=== PATIENT | male | born 1955 | race Caucasian/White ===

== ENCOUNTER → 2019-05-18 08:19 | Outpatient (CLI) | payer SELFPAY ==
--- NOTE | 2019-05-18 08:57 | CT_ITS ---
PROCEDURE: CT HEART W CALCIUM SCORE Patient Age:64Y CLINICAL HISTORY: screening Short of breath. Family history CVD hypertension COMPARISON: No exams were available for comparison CXR 2012 TECHNIQUE: Helical images obtained obtained through the heart with calcium scoring performed. All CT scans at the facility use one or more dose reduction, viz: automated exposure control, ma/kV adjustment per patient size (including targeted exams where dose is matched to indication, i.e. head), or iterative reconstruction technique. FINDINGS: Calcium score on this patient = 327 reflecting moderate plaque burden and high CVD risk. The total calcium score 327 with calcium scoring breakdown as follows.: Left main coronary artery 282 LAD 20 LCX 2 RCA 18 PDA 5 Only limited views of lungs adjacent to the heart. These images a show no additional findings of significant concern. There is a small 4 mm calcified granuloma RML. Upper normal borderline airway thickening centrally with minor chronic changes lung pimentel bilaterally. Aortic root normal caliber with 3.8 cm diameter ascending aorta.. IMPRESSION: Total calcium score 327, reflecting moderate plaque burden and HIGH CVD Risk. Dictated by: Fantasma Cisneros MD 05/21/2019 13:17 Electronically signed by Fantasma Cisneros MD in [place] 05/21/2019 13:17
== END ==
PROVIDERS: PCP Family Medicine; Visit Provider Internal Medicine Cardiovascular Disease
DX: Z13.6 Encounter for screening for cardiovascular disorders (principal); E78.5 Hyperlipidemia, unspecified; I10 Essential (primary) hypertension; I48.0 Paroxysmal atrial fibrillation; R06.00 Dyspnea, unspecified; R06.83 Snoring; R40.0 Somnolence; R60.9 Edema, unspecified; R94.31 Abnormal electrocardiogram [ECG] [EKG]
CPT/HCPCS: 75571

== ENCOUNTER → 2019-05-21 13:26 | Outpatient (CLI) | payer MEDICARE, SELFPAY | PROVIDERS: PCP Family Medicine; Visit Provider Internal Medicine Cardiovascular Disease | DX: E78.5 Hyperlipidemia, unspecified (principal); I10 Essential (primary) hypertension; I48.0 Paroxysmal atrial fibrillation; R06.00 Dyspnea, unspecified; R06.83 Snoring; R40.0 Somnolence; R60.9 Edema, unspecified; R94.31 Abnormal electrocardiogram [ECG] [EKG] ==

== ENCOUNTER → 2019-05-25 06:34 | Outpatient (CLI) | payer MEDICARE, SELFPAY ==
--- NOTE | 2019-05-25 06:36 | NM_ITS ---
APPROVED REPORT Exam: Nuclear Stress Test Indication: cad, hx.janett, htn, d.m., fm. hx, sob, fatigue, abn ekg Patient Location: Outpatient Stress Tech: Lily Box [place] Tech:Rose Fragoso, ARRT RT(R)(N) Ht: 5 ft 10 in Wt: 227 lbs HR: 81 bpm BP: 162/87 mmHg BSA: 2.20 m2 BMI: 32.5 History: cad, hx.janett, htn, d.m., fm. hx, sob, fatigue, abn ekg Procedure: Patient received a 0.4 mg of intravenous Lexiscan, resting heart rate 81 bpm, resting blood pressure 162/87 mmHg, with Lexiscan maximum heart rate achived was 91 bpm which is Less than 85 % of the maximum predicted heart rate and blood pressure was 171/81 mmHg. With Lexiscan, patient denied any complaint of chest pain. Electrocardiogram Resting electrocardiogram showed sinus rhythm nonspecific ST-T changes, with Lexiscan there is less than 1.[address] segment depression noted from the baseline EKG. The EKG portion of the Lexiscan Myoview is nondiagnostic. Cardiac Stress and Resting SPECT Images: Cardiac Stress and Resting SPECT images were obtained using technetium 99m Myoview 32.7 mCi stress and 10.97 mCi at rest. Gated SPECT with analysis of segmental wall motion and calculation of the ejection fraction also done. Cardiac stress and resting SPECT images show uniform myocardial activity without segmental perfusion abnormality, computer derived ejection fraction is 58% with no regional wall motion abnormality, right ventricle is normal size and contractility. Conclusion: 1. The EKG portion of the Lexiscan Myoview is nondiagnostic. 2. No scintigraphic evidence of reversible ischemia seen, computer derived ejection fraction is 58% with no regional wall motion abnormality, right ventricle is normal size and contractility. 3. Normal Lexiscan Myoview study. Electronically signed by : Ulysses Muhammad, 05/25/2019 13:39:48
--- NOTE | 2019-05-25 06:36 | CA_ITS ---
APPROVED REPORT EXAM: Comprehensive 2D, Doppler, and color-flow Echocardiogram Music Minister: Tereza Roberts CRT Ht: 5 ft 10 in Wt: 230lbs BSA: 2.21 BP: 194/86 mmHg Indications: Diabetes, Atrial Fibrillation (new onset), Atrial Flutter, Fatigue, Peripheral Edema, Hyperlipidemia, Hypertension/HDD, GERD, old UT 2D Dimensions LVOT 2.41 cm (M/F) 1.5-2.5 M-Mode Dimensions RVDd 3.31 cm (0.9-2.6) LVDd 5.45 cm (3.5-5.7) LVDs 3.94 cm (3.5-5.7) IVSd 1.73 cm (0.6-1.1) PWd 1.17 cm (0.6-1.1) EF (Teich) 53.30% FS 27.70% EDV (Teich) 144.40 mL ESV (Teich) 67.50 mL LV Diastology E/A Ratio 1.63 Mitral Valve MV A Velocity 62.00 (40-130 cm/s) Left Ventricle Left atrium is mildly enlarged, left ventricle is normal size, mild concentric left ventricular hypertrophy, visually estimated ejection fraction 55% with no regional wall motion abnormality. Diastolic parameters are inconclusive. Right Ventricle Right atrium and right ventricular normal size and contractility. Aortic Valve Aortic valve is grossly normal, there is no aortic stenosis or aortic insufficiency. Mitral Valve Mitral valve is grossly normal, there is mild mitral regurgitation. Tricuspid Valve Tricuspid valve is grossly normal, there is mild tricuspid regurgitation. Tricuspid regurgitation jet velocity is inadequate for calculation of the right ventricular systolic pressure. Pulmonic Valve Pulmonic valve is poorly visualized. Great Vessels Aortic root is normal size. Pericardium No significant pericardial effusion noted. Conclusion 1. Mildly enlarged left atrium, normal left ventricular size, mild concentric left ventricular hypertrophy, visually estimated ejection fraction 55% with no regional wall motion abnormality, diastolic parameters are inconclusive. 2. Mild mitral and tricuspid regurgitation. 3. No significant pericardial effusion noted. Electronically signed by : Ulysses Muhammad, 05/25/2019 14:46:50
--- NOTE | 2019-05-25 06:39 | CA_ITS ---
APPROVED REPORT Exam: Pharmacologic Technologist: maame marinelli, Ht: 5 ft 10 in Wt: 227 lbs BSA: 2.20 m2 HR: 81 bpm BP: 162/87 mmHg Indications: SOB, Abn. EKG Medical History Medications: Metoprolol,,,,, Losartan,,,,, INSULIN,,,,, Apixaban,,,,, Allergies: No known drug allergies Cardiac Risk Factors: HTN, Diabetes (insulin), FHX of CAD Previous Cardiac Procedures: Myocardial infarction Stress Test Details Test: LEXISCAN HR Resting HR: 79 bpm Max Heart Rate (APMHR): 154 bpm Max HR Achieved: 99 bpm Target HR (85% APMHR): 130 bpm % of APMHR: 64 Recovery HR: 87 bpm BP Resting BP: 162.0/87.0 mmHg Max BP: 171/81 mmHg Recovery BP: 162.0/76.0 mmHg ECG Resting ECG: Sinus rhythm with intermitten A-Fib Clinical Exercise duration: 04:00 min Highest Stage Achieved: Exercise capacity: 1.0 METs Stress ECG Conclusion Lexiscan portion completed. No chest pain. C/O SOB at peak infusion which resolved during recovery. Occ PAC and PVC. Less than 1.5mm ST Depression. Images to follow. Test Summary REST 01:12 . . 79 . . . . Stage 1 01:00 . . 96 . . . . Stage 2 01:00 . . 96 . 156/ 85 . . Stage 3 01:00 . . 91 . 171/ 81 . . Stage 4 01:00 . . 92 . 162/ 85 . Stop exercise at 04:00 RECOVERY 01:00 . . 89 . 162/ 76 . . RECOVERY 02:00 . . 89 . 168/ 76 . . RECOVERY 03:00 . . 82 . 165/ 79 . . RECOVERY 03:48 . . 86 . 171/ 78 . . Electronically signed by : Ulysses Muhammad, 05/25/2019 13:37:17
--- NOTE | 2019-05-25 09:07 | HMH.ITSHM ---
Current Home Medications as stated by this patient Norm Joseph or cash posting representative. [] NOVOLIN ELIQUIS METOPROLOL LOSARTAN/HC
== END ==
PROVIDERS: PCP Family Medicine; Visit Provider Internal Medicine Cardiovascular Disease
DX: E78.5 Hyperlipidemia, unspecified (principal); I10 Essential (primary) hypertension; I48.0 Paroxysmal atrial fibrillation; R06.00 Dyspnea, unspecified; R60.9 Edema, unspecified; R94.31 Abnormal electrocardiogram [ECG] [EKG]
CPT/HCPCS: 78452; 93017; 93306; A9502; J2785

== ENCOUNTER → 2019-06-04 13:38 | Outpatient (CLI) | payer MEDICARE, SELFPAY | PROVIDERS: PCP Family Medicine; Visit Provider Internal Medicine Cardiovascular Disease | DX: R06.00 Dyspnea, unspecified (principal); R06.83 Snoring; R40.0 Somnolence; R60.9 Edema, unspecified; I48.0 Paroxysmal atrial fibrillation; I10 Essential (primary) hypertension; R94.31 Abnormal electrocardiogram [ECG] [EKG]; E78.5 Hyperlipidemia, unspecified; G47.33 Obstructive sleep apnea (adult) (pediatric) | CPT/HCPCS: G0399 ==

== ENCOUNTER → 2019-08-31 09:11 | Outpatient (CLI) | payer MEDICARE, SELFPAY ==
[2019-08-31 09:41] LABS: Alanine Aminotransferase 13 U/L (12-78); Alkaline Phosphatase 47 U/L (38-126); Aspartate Amino Transferase 22 U/L (17-59); Bilirubin,Direct 0.3 mg/dl (0.0-0.4); Bilirubin,Indirect 0.7 mg/dL (0.0-0.9); Bilirubin,Unconjugated 0.7 mg/dL (0.0-1.1); Chol/HDL Ratio 2.4 (1-3.5); Cholesterol 87 mg/dl (140-200); HDL Cholesterol 37 mg/dl (40-60); Total Protein,Serum 7.1 g/dl (6.3-8.2); Triglycerides 67 mg/dl (30-150); VLDL Cholesterol 13 mg/dL (0-40)
[2019-08-31 09:53] LABS: Direct LDL Cholesterol 45.26 mg/dL (100-129)
== END ==
PROVIDERS: Visit Provider Urology
DX: E78.2 Mixed hyperlipidemia; E11.69 Type 2 diabetes mellitus with other specified complication; G47.33 Obstructive sleep apnea (adult) (pediatric); I25.10 Atherosclerotic heart disease of native coronary artery without angina pectoris; I48.0 Paroxysmal atrial fibrillation; K21.9 Gastro-esophageal reflux disease without esophagitis; R06.02 Shortness of breath; R60.9 Edema, unspecified; Z82.49 Family history of ischemic heart disease and other diseases of the circulatory system; I11.9 Hypertensive heart disease without heart failure; Z79.4 Long term (current) use of insulin
CPT/HCPCS: 36415; 80061; 80076

== ENCOUNTER 2019-10-23 08:38 | Day surgery (SDC) | payer MEDICARE, SELFPAY ==
[2019-10-23] VITALS (18 sets, daily range): BP systolic 109–184; BP diastolic 64–85; PULSE 58–76; RESP 14–18; TEMP 36.5; O2SAT 93–100; BMI 37.5
--- NOTE | 2019-10-23 | IR_ITS ---
APPROVED REPORT Patient Location: Outpatient Histologic Technician: TESS Kelly RT (R) PROCEDURES Right heart catheterization Left heart catheterization Left ventriculogram Selective coronary angiogram Drug-eluting stent deployment to the proximal LAD INDICATION Elevated calcium score on coronary CT, Coronary artery disease, Angina pectoris, Pulmonary hypertension, Biventricular congestive heart failure Informed consent was obtained prior to the procedure. COMPLICATIONS None Estimated Blood Loss: less than 10 ml TECHNIQUE One percent lidocaine was used to anesthetize the right anterior aspect of the right wrist. The right radial artery was accessed via the Seldinger technique and a 6 Iranian hydrophilic sheath was placed in the right radial artery. Following this one percent lidocaine was used to anesthetize the right anterior aspect of the right neck. The right internal jugular vein was accessed via the Seldinger technique and a 7 Iranian sheath was placed in the right internal jugular vein. Following this an arterial cocktail was administered using 5000U heparin, 2.5 mg verapamil, 1mg Lidocaine and 800mcg nitroglycerin into the right radial sheath. A trap catheter was used to perform left heart catheterization left ventriculogram and selective coronary angiography while a Upton-Etelvina catheter was used to perform right heart catheterization. Saturations were obtained in the pulmonary artery and right atrium. At the end of the diagnostic procedure therapeutic heparin was administered and a Zia catheter was used to intubate the left main artery. A BMW wire was used to traverse the stenosis in the LAD and a 3 mm x 15 mm resolute ang stent was deployed at 24 carlos reducing the stenosis. A 3.5 x 12 mm balloon was deployed on 2 occasions at 24 carlos to post dilate. An additional 4 mm x 12 mm balloon was then deployed on 2 occasions at 24 carlos to further post dilate the proximal LAD stent. At the end of the procedure the apparatus was removed the sheath was removed good hemostasis was achieved using TR banding patient was transferred to the postop holding her in stable condition ANGIOGRAPHIC RESULTS The left main artery Normal The left anterior descending artery Has a proximal 70% stenosis followed by mid vessel 20% then an additional 30% eccentric stenosis with 20 and 30% stenoses distally. The circumflex artery Is a large dominant vessel with mild 10% diffuse luminal irregularities The right coronary artery Small nondominant with mild 10% luminal irregularities The HORVATH ventriculogram reveals Normal 60% The left ventricular end-diastolic pressure 25 mmHg HEMODYNAMICS: Right atrial pressure is 15 mmHg Pulmonary arterial pressure is 40/23 mmHg Pulmonary artery occlusion pressure is 24 mmHg PA SAT: 81% RA SAT: 81% IMPRESSION Severe proximal LAD stenosis Successful stenting of the proximal LAD severe disease reduced to 0% with one drug-eluting stent Moderate pulmonary hypertension Moderately elevated pressures consistent with biventricular congestive heart failure Normal ejection fraction PLAN 1. Plavix plus aspirin plus Eliquis for 30 days then drop the aspirin and continue Plavix plus Eliquis 2. LDL less than 55 3. Cardiac rehabilitation 4. Avoidance of tobacco products 5. Diuretics in order to decrease LVEDP and treat pulmonary hypertension with biventricular heart failure Electronically signed by : Jaiden Nunez, 10/23/2019 10:54:12
[2019-10-23 09:12] LABS: Basophils # 0.1 K/mm3 (0-0.2); Eosinophils # 1.2 K/mm3 (0.0-0.4); Eosinophils % 10.7 % (0.1-12.0); Hematocrit 40.8 % (42.0-52.0); Hemoglobin 14.2 g/dL (14.1-18.0); Lymphocytes # 2.2 K/mm3 (0.7-4.5); Mean Corpuscular HGB Conc 34.8 g/dL (31.8-35.4); Mean Corpuscular Hemoglobin 32.4 pg (27.0-31.2); Mean Corpuscular Volume 93.1 fl (80-94); Mean Platelet Volume 8.3 fl (7.4-10.4); Monocytes # 0.7 K/mm3 (0.1-1.0); Monocytes % 6.3 % (1.7-9.3); Neutrophils # 6.9 K/mm3 (1.8-7.8); Neutrophils % 62.1 % (37.0-80.0); Platelet Count 219 K/mm3 (142-424); Red Blood Count 4.38 M/mm3 (4.60-6.20); Red Cell Distribution Width 14.7 % (11.5-17.5); White Blood Count 11.1 K/mm3 (4.8-10.8)
[2019-10-23 09:15] LABS: Chloride 100 mmol/L (98-107); Sodium 140 mmol/L (136-145)
[2019-10-23 09:18] LABS: Blood Urea Nitrogen 15 mg/dl (9-20); Calcium 9.3 mg/dl (8.4-10.2); Carbon Dioxide 29 mmol/L (22.0-30.0); Creatinine Clearance Estimated 122 mL/min (50-200); Estimated Glomerular Filt Rate 97 ml/min (>60); GFR (African American) 117 ML/MIN (>60); Glucose 178 mg/dl (74-100)
[2019-10-23 13:58] LABS: CATHL Arterial O2 SAT 81.6 % (90-100); CATHL Venous O2 SAT 81.8 % (75-80)
[2019-10-23 14:00] LABS: CATHL Activated Clotting Time 299 SEC (74-125)
--- NOTE | 2019-10-23 14:22 | HMH.PHACLD ---
Norm Joseph has received discharge medication counseling on the following medications: PATIENT CURRENTLY ON LOSARTAN 100 MG DAILY, ATORVASTATIN 20 MG HS, AND METOPROLOL SUCCINATE 50 MG TID. MD STARTING PLAVIX 75 MG DAILY AND ASPIRIN 81 MG DAILY. MD ALSO ADDING LASIX 40 MG DAILY AND SPIRONOLACTONE 50 MG DAILY.
== END 2019-10-23 15:00 | disposition home or self-care (01) ==
LOC: CATHLAB 08:41
PROVIDERS: PCP Family Medicine; Visit Provider Internal Medicine
DX: I25.10 Atherosclerotic heart disease of native coronary artery without angina pectoris (principal); I27.20 Pulmonary hypertension, unspecified; I48.0 Paroxysmal atrial fibrillation; R55 Syncope and collapse; E78.5 Hyperlipidemia, unspecified; I25.2 Old myocardial infarction; I11.0 Hypertensive heart disease with heart failure; I50.82 Biventricular heart failure; Z79.4 Long term (current) use of insulin; Z79.02 Long term (current) use of antithrombotics/antiplatelets; Z79.899 Other long term (current) drug therapy
CPT/HCPCS: 80048; 82810; 85025; 85347; 92928; 93460; 99152; 99153; C1725; C1760; C1769; C1876; C1894; C9600; J1644; Q9967

== ENCOUNTER → 2019-11-05 11:46 | Outpatient (CLI) | payer MEDICARE, SELFPAY ==
[2019-11-05 13:35] LABS: Anion Gap 18.5 mEq/L (5-15); Blood Urea Nitrogen 22 mg/dl (9-20); Calcium 11.1 mg/dl (8.4-10.2); Carbon Dioxide 31 mmol/L (22.0-30.0); Chloride 98 mmol/L (98-107); Estimated Glomerular Filt Rate 75 ml/min (>60); GFR (African American) 90 ML/MIN (>60); Glucose 178 mg/dl (74-100); Potassium 4.5 mmoL/L (3.5-5.1); Sodium 143 mmol/L (136-145)
[2019-11-05 13:43] LABS: NT Pro Brain Natriuretic Pep. 159 pg/mL (0-125)
== END ==
PROVIDERS: Visit Provider Internal Medicine Cardiovascular Disease
DX: R55 Syncope and collapse; R06.00 Dyspnea, unspecified; R60.9 Edema, unspecified; E78.5 Hyperlipidemia, unspecified; I25.10 Atherosclerotic heart disease of native coronary artery without angina pectoris; I48.0 Paroxysmal atrial fibrillation; I51.7 Cardiomegaly; R61 Generalized hyperhidrosis
CPT/HCPCS: 36415; 80048; 83880

== ENCOUNTER → 2019-12-07 11:52 | Outpatient (CLI) | payer MEDICARE, SELFPAY ==
[2019-12-07 15:22] LABS: Anion Gap 16.4 mEq/L (5-15); Blood Urea Nitrogen 26 mg/dl (9-20); Calcium 9.8 mg/dl (8.4-10.2); Carbon Dioxide 27 mmol/L (22.0-30.0); Chloride 101 mmol/L (98-107); Estimated Glomerular Filt Rate 67 ml/min (>60); GFR (African American) 81 ML/MIN (>60); Glucose 178 mg/dl (74-100); Potassium 4.4 mmoL/L (3.5-5.1); Sodium 140 mmol/L (136-145)
== END ==
PROVIDERS: Visit Provider Internal Medicine Cardiovascular Disease
DX: E78.5 Hyperlipidemia, unspecified (principal); I10 Essential (primary) hypertension; I25.10 Atherosclerotic heart disease of native coronary artery without angina pectoris; I48.0 Paroxysmal atrial fibrillation
CPT/HCPCS: 36415; 80048

== ENCOUNTER → 2020-01-25 09:38 | Outpatient (CLI) | payer MEDICARE, SELFPAY ==
[2020-01-25 11:37] LABS: Alanine Aminotransferase 19 U/L (12-78); Albumin Level 4.4 g/dl (3.5-5.0); Alkaline Phosphatase 54 U/L (38-126); Amylase 48 U/L (30-110); Aspartate Amino Transferase 22 U/L (17-59); Bilirubin,Direct 0.2 mg/dl (0.0-0.4); Bilirubin,Indirect 0.8 mg/dL (0.0-0.9); Bilirubin,Unconjugated 0.8 mg/dL (0.0-1.1); Lipase 37 U/L (23-300); Total Protein,Serum 7.4 g/dl (6.3-8.2)
[2020-01-25 13:14] LABS: Coronavirus 19 IgG Antibody Positive (Negative); Coronavirus 19 IgM Antibody Negative (Negative)
== END ==
PROVIDERS: Family Medicine; Visit Provider Internal Medicine Cardiovascular Disease
DX: E78.5 Hyperlipidemia, unspecified (principal); I10 Essential (primary) hypertension; I25.10 Atherosclerotic heart disease of native coronary artery without angina pectoris; I48.0 Paroxysmal atrial fibrillation; I51.7 Cardiomegaly; R06.00 Dyspnea, unspecified; R11.2 Nausea with vomiting, unspecified; R55 Syncope and collapse; R60.9 Edema, unspecified; R61 Generalized hyperhidrosis; Z03.818 Encounter for observation for suspected exposure to other biological agents ruled out
CPT/HCPCS: 36415; 80076; 82150; 83690; 86328

== ENCOUNTER → 2020-05-02 11:08 | Outpatient (CLI) | payer MEDICARE, SELFPAY ==
--- NOTE | 2020-05-02 11:30 | PC.NURSE ---
Pre and Post Spirometry completed without complication. Albuterol 0.083% given via hand held nebulizer, per written protocol, Pt tolerated tx well.
== END ==
PROVIDERS: PCP Family Medicine; Visit Provider Family Medicine
DX: R06.09 Other forms of dyspnea (principal); Z77.22 Contact with and (suspected) exposure to environmental tobacco smoke (acute) (chronic)
CPT/HCPCS: 94060

== ENCOUNTER → 2020-07-25 10:00 | Outpatient (CLI) | payer MEDICARE, SELFPAY ==
--- NOTE | 2020-07-25 10:13 | XR_ITS ---
PROCEDURE: XR CHEST 2V CLINICAL HISTORY: dyspnea COMPARISON: CR CXR CHEST(2 VIEWS-NOT PORTABLE) from 07/17/2012 FINDINGS: There is mild cardiomegaly without failure. The lungs are clear without infiltrates, suspicious nodules, or pleural effusions. Mild degenerative changes thoracic spine IMPRESSION: Cardiomegaly without failure Dictated by: Catarino Viramontes MD 07/25/2020 10:46 Catarino Viramontes MD in [place] 07/25/2020 10:46
[2020-07-25 11:33] LABS: Alanine Aminotransferase 21 U/L (12-78); Aspartate Amino Transferase 28 U/L (17-59); Bilirubin,Unconjugated 0.3 mg/dL (0.0-1.1)
[2020-07-25 11:34] LABS: Albumin Level 4.3 g/dl (3.5-5.0); Alkaline Phosphatase 61 U/L (38-126); Bilirubin,Direct 0.2 mg/dl (0.0-0.4); Bilirubin,Indirect 0.3 mg/dL (0.0-0.9); Bilirubin,Total 0.5 mg/dl (0.2-1.3); Total Protein,Serum 7.1 g/dl (6.3-8.2)
[2020-07-25 11:51] LABS: T4 (Thyroxine) 9.1 ug/dl (5.53-11.0); Triiodothryronine (T3) Uptake 33 % (23.5-40.5)
[2020-07-25 12:04] LABS: Thyroid Stimulating Hormone 1.72 uIU/mL (0.465-4.68)
== END ==
PROVIDERS: Visit Provider Internal Medicine Cardiovascular Disease
DX: E11.69 Type 2 diabetes mellitus with other specified complication (principal); E78.2 Mixed hyperlipidemia; G47.33 Obstructive sleep apnea (adult) (pediatric); I10 Essential (primary) hypertension; I25.10 Atherosclerotic heart disease of native coronary artery without angina pectoris; I48.0 Paroxysmal atrial fibrillation; K21.9 Gastro-esophageal reflux disease without esophagitis; R06.02 Shortness of breath; R60.9 Edema, unspecified; Z79.84 Long term (current) use of oral hypoglycemic drugs
CPT/HCPCS: 36415; 71046; 80076; 84436; 84443; 84479

== ENCOUNTER → 2020-07-30 14:21 | Outpatient (CLI) | payer MEDICARE, SELFPAY | PROVIDERS: PCP Family Medicine; Visit Provider Internal Medicine Cardiovascular Disease | DX: R06.02 Shortness of breath; R60.9 Edema, unspecified; Z20.822 Contact with and (suspected) exposure to COVID-19; Z01.812 Encounter for preprocedural laboratory examination; I48.0 Paroxysmal atrial fibrillation | CPT/HCPCS: U0003 ==

== ENCOUNTER 2020-07-31 10:26 | Day surgery (SDC) | payer MEDICARE, SELFPAY ==
[2020-07-31 10:39] VITALS: BMI 37.5
[2020-07-31 10:59] VITALS: BP 182/97; RESP 20; O2SAT 97
--- NOTE | 2020-07-31 11:03 | ECG_ITS ---
APPROVED REPORT Exam: Resting ECG HR:83 bpm ECG Measurements Heart Rate 83 AXES IL 162 P 48 QRSd 88 QRS 14 QT 510 T 96 QTc 599 Conclusion Sinus rhythm with frequent premature ventricular complexes in a pattern of bigeminy ST & T wave abnormality, consider lateral ischemia Prolonged QT Abnormal ECG Electronically signed by : Johann Fitzpatrick, 08/01/2020 15:02:11
--- NOTE | 2020-07-31 11:31 | SUR.PHASEII ---
cardioversion aborted per yovana dubois after reviewing patient ekg.
[2020-07-31 11:32] VITALS: BP 182/97; PULSE 79; RESP 16; O2SAT 97
== END 2020-07-31 11:37 | disposition home or self-care (01) ==
LOC: CATHLAB 10:26
PROVIDERS: PCP Family Medicine; Visit Provider Internal Medicine
DX: I48.0 Paroxysmal atrial fibrillation (principal); Z53.09 Procedure and treatment not carried out because of other contraindication
CPT/HCPCS: 93005

== ENCOUNTER → 2020-11-11 10:33 | Outpatient (CLI) | payer MEDICARE, SELFPAY ==
--- NOTE | 2020-11-11 11:01 | ECG_ITS ---
APPROVED REPORT Exam: Resting ECG HR:92 bpm ECG Measurements Heart Rate 92 AXES UT 162 P 52 QRSd 82 QRS 57 QT 362 T 120 QTc 447 Conclusion Sinus rhythm with premature atrial complexes ST elevation, consider inferior injury or acute infarct ACUTE PR Consider right ventricular involvement in acute inferior infarct Abnormal ECG Electronically signed by : Johann Fitzpatrick MD 11/12/2020 11:45:37
[2020-11-11 11:21] LABS: Basophils # 0.2 K/mm3 (0-0.2); Basophils % 1.5 % (0.1-2.0); Eosinophils # 0.6 K/mm3 (0.0-0.4); Eosinophils % 5.8 % (0.1-12.0); Hematocrit 45.7 % (42.0-52.0); Hemoglobin 15.1 g/dL (14.1-18.0); Lymphocytes # 2.2 K/mm3 (0.7-4.5); Mean Corpuscular HGB Conc 33.1 g/dL (31.8-35.4); Mean Corpuscular Hemoglobin 30.6 pg (27.0-31.2); Mean Corpuscular Volume 92.5 fl (80-94); Mean Platelet Volume 8.6 fl (7.4-10.4); Monocytes # 0.7 K/mm3 (0.1-1.0); Monocytes % 6.7 % (1.7-9.3); Neutrophils # 6.3 K/mm3 (1.8-7.8); Neutrophils % 64.1 % (37.0-80.0); Platelet Count 233 K/mm3 (142-424); Red Blood Count 4.94 M/mm3 (4.60-6.20); Red Cell Distribution Width 15.1 % (11.5-17.5); White Blood Count 9.8 K/mm3 (4.8-10.8)
[2020-11-11 11:43] LABS: Chloride 99 mmol/L (98-107)
[2020-11-11 11:44] LABS: Sodium 141 mmol/L (136-145)
[2020-11-11 11:46] LABS: Blood Urea Nitrogen 16 mg/dl (9-20); Estimated Glomerular Filt Rate 67 ml/min (>60); GFR (African American) 81 ML/MIN (>60)
[2020-11-11 11:47] LABS: Calcium 10.2 mg/dl (8.4-10.2); Carbon Dioxide 29 mmol/L (22.0-30.0); Glucose 229 mg/dl (74-100)
== END ==
PROVIDERS: Visit Provider Otolaryngology
DX: Z01.812 Encounter for preprocedural laboratory examination (principal); Z20.822 Contact with and (suspected) exposure to COVID-19; D49.2 Neoplasm of unspecified behavior of bone, soft tissue, and skin
CPT/HCPCS: 36415; 80048; 85025; 93005; U0003

== ENCOUNTER 2020-11-13 07:48 | Day surgery (SDC) | payer MEDICARE, SELFPAY ==
[2020-11-11 12:27] VITALS: BMI 38.0
[2020-11-13 08:05] VITALS: BP 178/80; PULSE 88; RESP 20; TEMP 36.1; O2SAT 98
[2020-11-13 08:19] LABS: POC Glucose,Bedside 223 (70-110)
--- NOTE | 2020-11-13 09:05 | HMH.ANESCL ---
[facility] Anesthesia Checklist - Patient Identification Patient Identification: Arm Band - Structural Data Admitted From: Home Planned Operative Procedure/s: Excision of Left Ear Lesion Consent for Planned Operative Procedure(s) Verified: Yes Verified Documents: Surgical Consent, History and Physical - NPO Status Verified Time NPO: 00:00 - Additional verifications Anesthesia Reactions: No Hx Blood Transfusions: No Blood Transfusion Reaction: No - Airway Assessment C-Spine Mobility Assessed: Yes (mp3) TMJ Mobility Assessed: Yes Dentition: Edentulous - Neurological Assessment Level of Consciousness: Awake, Alert - Anesthesia Plan Anesthesia Risk discussed: Yes Anesthesia Plan: Verified ASA Class: III Anesthesia Type: MAC [facility] History I have reviewed the patient's past medical history: Yes Medical History: Reports:: Atrial Fibrillation, Cancer (SKIN EAR AND ARM), Coronary Artery Disease, Diabetes Mellitus Type 2, Gastroesophageal Reflux Disease(GERD), Hyperlipidemia, Hypertension, Myocardial Infarction Denies:: Diabetes Mellitus Type 1, Internal Pacemaker, MRSA, Seizures *Have you ever received a pneumonia vaccine?: Yes *Have you received a flu vaccine this season?: Yes Other Medical History: Denies: Blood Transfusion Reaction Anesthesia experience/problems:: nac Other Surgeries: Yes: Cardiac Catheterization, Colonoscopy, Coronary Stent. No: Pacemaker Amputation: No Fractures: No - *Social History Last grade of school completed: High school graduate Smoking Status: Never smoker Alcohol Intake: former Alcohol Intake Frequency:: other Substance Use Type: marijuana *Occupational Status:: retired Housing: house *Travel in the last 8 weeks: None Family Hx:: Heart Attack
[2020-11-13 10:55] VITALS: BP 163/88; PULSE 87; RESP 16; TEMP 36.6; O2SAT 95
--- NOTE | 2020-11-13 10:56 | HMH.OPNOTE ---
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 The lesion was marked out and the sarah out measured 2.8 cm the sarah out was incised and the lesion was excised along the ear cartilage and removed in entirety. Blood loss was 5 cc and completely stopped with suction cautery. Medial and lateral incisions were made and the tissue rearrangement Z-plasty repair was done with interrupted 2-0 nylon sutures. Dressings were applied and the patient was sent to recovery in good general condition. Condition: stable Disposition: PACU Complications:: none
[2020-11-13 11:10] VITALS: BP 171/94; PULSE 86; RESP 16; TEMP 36.6; O2SAT 94
[2020-11-13 11:25] VITALS: BP 162/91; PULSE 88; RESP 18; TEMP 36.6; O2SAT 94
== END 2020-11-13 11:25 | disposition home or self-care (01) ==
PROVIDERS: PCP Family Medicine; Visit Provider Otolaryngology
DX: C44.219 Basal cell carcinoma of skin of left ear and external auricular canal; Z85.828 Personal history of other malignant neoplasm of skin; I48.91 Unspecified atrial fibrillation; I25.10 Atherosclerotic heart disease of native coronary artery without angina pectoris; E11.9 Type 2 diabetes mellitus without complications; K21.9 Gastro-esophageal reflux disease without esophagitis; E78.5 Hyperlipidemia, unspecified; I10 Essential (primary) hypertension; I25.2 Old myocardial infarction; F12.90 Cannabis use, unspecified, uncomplicated; Z82.3 Family history of stroke; Z88.6 Allergy status to analgesic agent
CPT/HCPCS: 14060; 82962; 88305; 96374

== ENCOUNTER 2023-01-10 17:39 | Inpatient (IN) | payer MEDICARE, SELFPAY ==
[2023-01-10 17:42] VITALS: BP 167/70; PULSE 108; RESP 16; TEMP 37.2; O2SAT 97; BMI 38.7
[2023-01-10 17:58] LABS: POC Glucose,Bedside 306 (70-110)
--- NOTE | 2023-01-10 18:26 | CT_ITS ---
PROCEDURE INFORMATION: Exam: CT Thoracic Spine With Contrast Exam date and time: 01/10/2023 7:52 PM Age: 67 years old Clinical indication: Condition or disease; Other: Abscess; Patient HX: States spot on back has been there since Tuesday; Additional info: Thoracolyumbar soft tissue abscess, R/O osteo TECHNIQUE: Imaging protocol: Computed tomography of the thoracic spine with contrast. Radiation optimization: All CT scans at this facility use at least one of these dose optimization techniques: automated exposure control; mA and/or kV adjustment per patient size (includes targeted exams where dose is matched to clinical indication); or iterative reconstruction. Contrast material: ISOVUE; Contrast volume: 75 ml; Contrast route: IV; REPORTING DATA: Count of CT and Cardiac NM exams in prior 12 months: This patient has received 0 known CTs and 0 known cardiac nuclear medicine studies in the 12 months prior to the current study. COMPARISON: CT ABDOMEN PELVIS W CON 01/10/2023 7:23 PM FINDINGS: Bones/joints: No acute fracture. Normal alignment. No significant disc bulge or herniation. No severe spinal canal stenosis. No significant neural foraminal narrowing. Soft tissues: Lower thoracic posterior subcutaneous soft tissue opacities. IMPRESSION: Lower thoracic posterior subcutaneous soft tissue opacities. No evidence of osteomyelitis.
--- NOTE | 2023-01-10 18:26 | CT_ITS ---
PROCEDURE INFORMATION: Exam: CT Abdomen And Pelvis With Contrast Exam date and time: 01/10/2023 7:23 PM Age: 67 years old Clinical indication: Condition or disease; Abscess; Abscess location: Thoracolumbar; Additional info: Thoracolumbar spine abscess, R/O osteo TECHNIQUE: Imaging protocol: Computed tomography of the abdomen and pelvis with contrast. Radiation optimization: All CT scans at this facility use at least one of these dose optimization techniques: automated exposure control; mA and/or kV adjustment per patient size (includes targeted exams where dose is matched to clinical indication); or iterative reconstruction. Contrast material: ISOVUE; Contrast volume: 75 ml; Contrast route: IV; REPORTING DATA: Count of CT and Cardiac NM exams in prior 12 months: This patient has received 0 known CTs and 0 known cardiac nuclear medicine studies in the 12 months prior to the current study. COMPARISON: CT HEART W CALCIUM SCORE 05/18/2019 9:06 AM FINDINGS: Lungs: Dependent bilateral lung base opacities favor atelectasis. Liver: Normal. No mass. Gallbladder and bile ducts: Normal. No calcified stones. No ductal dilation. Pancreas: Normal. No ductal dilation. Spleen: Normal. No splenomegaly. Adrenal glands: Normal. No mass. Kidneys and ureters: Left renal Bosniak 1 cystic lesion that is homogeneous and fluid density (-9-20 HU), no septations or calcifications, having patel smooth and thin. Measurement is 37 mm. No follow-up recommended. Stomach and bowel: Unremarkable. No obstruction. No mucosal thickening. Appendix: No evidence of appendicitis. Intraperitoneal space: Unremarkable. No free air. No significant fluid collection. Vasculature: Moderate calcific atherosclerotic disease of the abdominal aorta without aneurysmal dilatation is present. Lymph nodes: Unremarkable. No enlarged lymph nodes. Urinary bladder: Unremarkable as visualized. Reproductive: Unremarkable as visualized. Bones/joints: Unremarkable. No acute fracture. Soft tissues: Heterogeneous collection at the L3-L4 level measuring 2.9 x 3.9 x 3.9 cm with moderate surrounding inflammatory changes of the soft tissues. IMPRESSION: Heterogeneous collection at the L3-L4 level measuring 2.9 x 3.9 x 3.9 cm with moderate surrounding inflammatory changes of the soft tissues. Findings may represent phlegmonous collection versus early developing abscess without well-defined rim enhancement. No evidence of osteomyelitis. COMMENTS: Consistent with the [employer]'s Incidental Findings Committee white paper (J Am Asiya Radiol 2018): Any incidental renal lesion less than 1 cm or classified as too small to characterize, or any incidental cystic renal lesion characterized as simple-appearing, is likely benign. No follow-up imaging is recommended for these lesions per consensus recommendations based on imaging criteria.
--- NOTE | 2023-01-10 18:26 | CT_ITS ---
PROCEDURE INFORMATION: Exam: CT Lumbar Spine With Contrast Exam date and time: 01/10/2023 7:56 PM Age: 67 years old Clinical indication: Condition or disease; Other: Abscess; Additional info: Thoracolyumbar soft tissue abscess, R/O osteo TECHNIQUE: Imaging protocol: Computed tomography of the lumbar spine with contrast. Radiation optimization: All CT scans at this facility use at least one of these dose optimization techniques: automated exposure control; mA and/or kV adjustment per patient size (includes targeted exams where dose is matched to clinical indication); or iterative reconstruction. Contrast material: ISOVUE; Contrast volume: 75 ml; Contrast route: IV; REPORTING DATA: Count of CT and Cardiac NM exams in prior 12 months: This patient has received 0 known CTs and 0 known cardiac nuclear medicine studies in the 12 months prior to the current study. COMPARISON: CT THORACIC SPINE W CON 01/10/2023 7:52 PM FINDINGS: Bones/joints: No acute fracture. Normal alignment. No significant disc bulge or herniation. No severe spinal canal stenosis. No significant neural foraminal narrowing. Soft tissues: Heterogeneous collection at the L3-L4 level measuring 2.9 x 3.9 x 3.9 cm with moderate surrounding inflammatory changes of the soft tissues. Left renal Bosniak 1 cyst measures 3.4 cm in diameter. IMPRESSION: Heterogeneous collection at the L3-L4 level measuring 2.9 x 3.9 x 3.9 cm with moderate surrounding inflammatory changes of the soft tissues. Findings may represent phlegmonous collection versus early developing abscess without well-defined rim enhancement. No evidence of osteomyelitis.
--- NOTE | 2023-01-10 18:40 | HMH.EDGENADL ---
Discharge Plan Disposition Patient Disposition: Admitted Chief Complaint: Skin/Abscess/Foreign Body Prescriptions Prescriptions: No Action omeprazole 20 mg capsule,delayed release(DR/EC) 20 mg PO DAILY losartan-hydrochlorothiazide 100-25 mg tablet 1 tab PO DAILY clopidogrel 75 MG tablet 75 mg PO DAILY spironolactone 50 MG tablet 50 mg PO DAILY amiodarone 200 MG tablet 200 mg PO BID Referrals Follow up/Referrals: Juju Burrell MD [Primary Care Provider] - See instructions Clinical Impressions Clinical Impression: Cellulitis, Myositis Sepsis Qualifiers: Sepsis type: sepsis due to unspecified organism Sepsis acute organ dysfunction status: with acute organ dysfunction Severe sepsis acute organ dysfunction type: unspecified Severe sepsis shock status: without septic shock Qualified Code(s): A41.9 - Sepsis, unspecified organism; R65.20 - Severe sepsis without septic shock Instructions Patient Instructions: DI for Skin Abscess Discharge ED Provider: Stewart Chowdhury General Adult HPI General Chief complaint: Skin/Abscess/Foreign Body Stated complaint: vomiting, irritation on back with puss Time Seen by Provider: 01/10/23 17:47 Mode of Arrival: Ambulatory Source of Information: Patient Limitations: No Limitations Description of Symptoms (Recalled from ER Triage Doc. by RN): 67 yo M presents to ED with c/o vomitting, pimple on back. pt reports symptoms began 5 days ago. but pts daughter noticed the pimple on his back tuesday. pus and drainage began tuesday. 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 Patient states that he was seen by dermatology about 2 weeks prior to this visit. He had a lesion on his back, unknown what it was, sheet combining operator prescribed a cream, that he has been putting on for the past couple of weeks. On , approximately 4 days prior to arrival, he started noticing a knot on his lower back. Is gotten worse and is currently draining katelyn pus. Patient has had fevers, vomiting, but lesion is nonpainful unless applying pressure. No neurologic deficits. Related Data Home Medications Medication Instructions Recorded Confirmed omeprazole 20 mg capsule,delayed 20 mg PO DAILY Reflux/Acid reflux 10/12/19 01/10/23 release clopidogrel 75 mg tablet 75 mg PO DAILY Heart disease 10/24/19 01/10/23 spironolactone 50 mg tablet 50 mg PO DAILY Fluid 10/24/19 01/10/23 losartan 100 1 tab PO DAILY bp 07/25/20 01/10/23 mg-hydrochlorothiazide 25 mg tablet amiodarone 200 mg tablet 200 mg PO BID bp 11/13/20 01/10/23 Allergies Allergy/AdvReac Type Severity Reaction Status Date / Time codeine Allergy Unknown Agitated Verified 11/04/20 11:00 [facility] Disclaimer: The information contained in this section may have been updated after the patient was seen, as this information can be updated by other users. Medical History (Updated 01/10/23 @ 20:49 by Stewart Chowdhury MD) CAD (coronary artery disease) Family history of heart disease Social History Smoking Status: Never smoker second hand exposure: Yes alcohol intake: former substance use type: marijuana current occupational status: retired Travel in the last 8 weeks: None housing: house current occupational exposures/hazards: No caffeine: Yes ROS Obtained: Yes All systems reviewed & no additional complaints except as documented Physical Exam General General appearance: alert and in no apparent distress Head Head exam: atraumatic, normocephalic and other (Squamous cell carcinoma top of left ear) Eye Eye exam: Present normal appearance, PERRL and EOMI ENT ENT exam: Present mucous membranes moist Neck Neck exam: Present normal inspection, full ROM and trachea midline Respiratory
[2023-01-10 18:45] LABS: Basophils % 0.1 % (0.1-2.0); Eosinophils # 0.1 K/mm3 (0.0-0.4); Eosinophils % 0.9 % (0.1-12.0); Hematocrit 46.8 % (42.0-52.0); Hemoglobin 16.1 g/dL (14.1-18.0); Lymphocytes # 1.1 K/mm3 (0.7-4.5); Lymphocytes % 7.4 % (10-50); Mean Corpuscular HGB Conc 34.5 g/dL (31.8-35.4); Mean Corpuscular Hemoglobin 32.2 pg (27.0-31.2); Mean Corpuscular Volume 93.4 fl (80-94); Monocytes # 0.9 K/mm3 (0.1-1.0); Monocytes % 6.1 % (1.7-9.3); Neutrophils # 12.5 K/mm3 (1.8-7.8); Neutrophils % 85.6 % (37.0-80.0); Platelet Count 287 K/mm3 (142-424); Red Blood Count 5.01 M/mm3 (4.60-6.20); Red Cell Distribution Width 14.5 % (11.5-17.5); White Blood Count 14.6 K/mm3 (4.8-10.8)
[2023-01-10 18:46] LABS: MANUAL DIFFERENTIAL MANUAL DIFFERENTIAL (MANUAL DIFF)
[2023-01-10 18:47] LABS: Alanine Aminotransferase 36 U/L (12-78); Albumin Level 3.7 g/dl (3.5-5.0); Albumin/Globulin Ratio 0.9 (1.1-1.8); Alkaline Phosphatase 78 U/L (38-126); Anion Gap 16.5 mEq/L (5-15); Aspartate Amino Transferase 41 U/L (17-59); Blood Urea Nitrogen 17 mg/dl (9-20); Calcium 8.7 mg/dl (8.4-10.2); Carbon Dioxide 26 mmol/L (22.0-30.0); Chloride 94 mmol/L (98-107); Creatinine Clearance Estimated 121 mL/min (50-200); Estimated Glomerular Filt Rate 74 ml/min (>60); GFR (African American) 90 ML/MIN (>60); Globulin 4.1 g/dL (1.3-3.2); Glucose 259 mg/dl (74-100); Potassium 3.5 mmoL/L (3.5-5.1); Sodium 133 mmol/L (136-145); Total Protein,Serum 7.8 g/dl (6.3-8.2)
[2023-01-10 18:53] LABS: Lactic Acid 4.2 mmol/L (0.7-2.1)
[2023-01-10 18:56] LABS: Acetone, Serum (Rapid) None Detected (None Detect)
[2023-01-10 19:08] LABS: Creatine Kinase 239 U/L (55-170)
[2023-01-10 19:13] LABS: Lymphocytes % 3 % (10-50); Monocytes % 3 % (2-9); Neutrophils % 86 % (42-76); Platelet Estimate Normal; RBC Morphology Normal; Total Cells Counted 100
[2023-01-10 19:18] LABS: Erythrocyte Sedimentation Rate 38 mm/hr (0-20)
--- NOTE | 2023-01-10 20:25 | PC.NURSE ---
While attempting to confirm pt current medication, pt stopped me and prvided me with a list of all medications that he is actually currently taking. Confirmed medications for admissions and made a note.
[2023-01-10 20:30] LABS: Hemoglobin A1C 10.2 % (4.0-6.0)
[2023-01-10 21:13] VITALS: BP 159/95; PULSE 112; RESP 17; TEMP 36.5; O2SAT 97
--- NOTE | 2023-01-10 21:21 | PC.NURSE ---
Addendum entered by Lizy Red 01/10/23 22:27: Patient arrived to floor via wheelchair at 21:20. Original Note: Patient arrived to floor via wheelchair at 21:90.
[2023-01-10 21:30] VITALS: O2SAT 96
[2023-01-10 21:46] VITALS: BP 160/84; PULSE 128; RESP 18; TEMP 36.9; O2SAT 96; BMI 38.1
--- NOTE | 2023-01-10 21:54 | EXP.HP ---
History of Present Illness *Admission Date: 01/10/23 *Reason for visit:: Cellulitis *History of present illness: 67 year old male presented to the ED with c/o lower back pain and rash. PMHX of DM, HTN, HLD, and a fib. Daughter at bedside. Pt reports rash started three weeks prior. Two weeks ago he had a biopsy to his left ear for squamous cell carcinoma and was started on Triamcinolone acetonide by his vulcanizing machine operator who he see at [facility] for the rash on his lower back. He was states that last week he felt a bump in the same area and went to his PCP. He has an outpatient I and D planned for tomorrow with his PCP. HE was not started on any antibiotics prior to his ED visit today. He presents to the ED with an elevated HR and leukocystosis and a known source of infection. The ED physician started the pt on cefepime and vancomycin. Blood cultures were obtained. He also received a sepsis fluid replacement. The ED physician consulted the hospitalist team for further medical management. The pt arrives to the medical floor in no acute distress. A wound culture was obtained and the wound was outlined on his back. The wound is purulent, hard, and erythemic. His CT of his abd, lumbar, and thoracic spine reveals wound at L3-L4. Inflammation of the soft tissue with possible developing abscess vs. phelgmonous collection. No evidence of osteomyelitis. [facility] Disclaimer: The information contained in this section may have been updated after the patient was seen, as this information can be updated by other users. Medical History (Updated 01/11/23 @ 14:07 by Elsi Jeong APRN) Atrial fibrillation with RVR Biventricular congestive heart failure CAD (coronary artery disease) DM2 (diabetes mellitus, type 2) Dyspnea Family history of heart disease GERD (gastroesophageal reflux disease) HLD (hyperlipidemia) HTN (hypertension) GÓMEZ (obstructive sleep apnea) PAF (paroxysmal atrial fibrillation) Pulmonary hypertension Social History (Updated 01/10/23 @ 22:28 by Kelli Brennan RN) Smoking Status: Never smoker second hand exposure: Yes alcohol intake: former substance use type: marijuana current occupational status: retired Travel in the last 8 weeks: None housing: house current occupational exposures/hazards: No caffeine: Yes Review of Systems *Cardiovascular Cardiovascular: Reports system reviewed and no additional complaints, except as documented *Respiratory Respiratory: Reports system reviewed and no additional complaints, except as documented *Gastrointestinal Gastrointestinal: Reports nausea and Reports vomiting *Genitourinary Genitourinary: Reports system reviewed and no additional complaints, except as documented *Musculoskeletal Musculoskeletal: Reports back pain *Neurologic Neurologic: Reports system reviewed and no additional complaints, except as documented Meds Home Medications and Allergies Home Medications Medication Instructions Recorded Confirmed Type omeprazole 20 mg capsule,delayed 20 mg PO DAILY Reflux/Acid reflux 10/12/19 01/11/23 History release clopidogrel 75 mg tablet 75 mg PO DAILY Heart disease 10/24/19 01/11/23 History losartan 100 1 tab PO DAILY 07/25/20 01/11/23 History mg-hydrochlorothiazide 25 mg tablet apixaban 5 mg tablet (Eliquis) 5 mg PO BID Blood Thinner 01/11/23 01/11/23 History insulin human U-100 NPH-regulr 40 unit SQ HS DM 01/11/23 01/11/23 History 70-30 mix 100 unit/mL subcutaneous susp (Novolin 70/30 U-100 Insulin) insulin human U-100 NPH-regulr 80 unit SQ DAILY DM 01/11/23 01/11/23 History 70-30 mix 100 unit/mL subcutaneous susp (Novolin 70/30 U-100 Insulin) amiodarone 200 mg tablet 400 mg PO BID #30 tabs 01/13/23 Rx aspirin 81 mg tablet,delayed 81 mg PO DAILY #30 tabs 01/13/23 Rx release doxycycline hyclate 100 mg capsule 100 mg PO BID #20 caps 01/13/23 Rx metoprolol succinate 25 mg 12.5 mg PO DAILY #30 tabs 01/13/23 Rx tablet,extended release 24 hr s
[2023-01-10 21:56] LABS: POC Glucose,Bedside 273 (70-110)
[2023-01-10 22:33] LABS: Reflex Lactic Add Lactic Reflex
[2023-01-10 23:17] LABS: Lactic Acid Follow Up (RFLX 1) 2.5 mmol/L (0.7-2.1)
--- NOTE | 2023-01-10 23:30 | EXP.SEPSISRE ---
[facility] Tissue Perfusion Eval Sepsis Re-Evaluation Performed: Yes Date Performed: 01/10/23 Time Performed: 23:30
[2023-01-10 23:52] VITALS: BP 143/62; PULSE 108; RESP 18; TEMP 37.3; O2SAT 96
[2023-01-11] VITALS (24 sets, daily range): BP systolic 99–140; BP diastolic 51–79; PULSE 80–115; RESP 14–18; TEMP 36.4–37.1; O2SAT 93–98; BMI 38.1
[2023-01-11 00:53] LABS: Reflex Lactic (2 hrs) Add Lactic Reflex
[2023-01-11 01:19] LABS: Lactic Acid Follow up (RFLX 2) 1.9 mmol/L (0.7-2.1)
--- NOTE | 2023-01-11 04:16 | PC.NURSE ---
Pt is alert and oriented x4, Pt is currently tolerating RA. Pt came to unit with a large abscess to the lumbar portion of the back, and a small abscess behind the left ear. Photos have be noted and consent for photos have been signed. Pt has complained of moderate pain and was given tylenol which pt claimed helped him. Pt has recieved antibiotic therapy and tolerated it well. Pt denies other needs at this time.
[2023-01-11 05:30] LABS: POC Glucose,Bedside 283 (70-110)
[2023-01-11 06:12] LABS: Basophils # 0.1 K/mm3 (0-0.2); Basophils % 0.3 % (0.1-2.0); Eosinophils # 0.2 K/mm3 (0.0-0.4); Eosinophils % 1.3 % (0.1-12.0); Hematocrit 41.1 % (42.0-52.0); Lymphocytes # 1.2 K/mm3 (0.7-4.5); Lymphocytes % 6.7 % (10-50); Mean Corpuscular HGB Conc 34.5 g/dL (31.8-35.4); Mean Corpuscular Hemoglobin 32.3 pg (27.0-31.2); Mean Corpuscular Volume 93.5 fl (80-94); Mean Platelet Volume 8.7 fl (7.4-10.4); Monocytes # 1.2 K/mm3 (0.1-1.0); Monocytes % 6.6 % (1.7-9.3); Neutrophils # 14.9 K/mm3 (1.8-7.8); Neutrophils % 85.1 % (37.0-80.0); Platelet Count 259 K/mm3 (142-424); Red Blood Count 4.39 M/mm3 (4.60-6.20); Red Cell Distribution Width 14.5 % (11.5-17.5); White Blood Count 17.5 K/mm3 (4.8-10.8)
[2023-01-11 06:16] LABS: Chloride 97 mmol/L (98-107); Potassium 3.7 mmoL/L (3.5-5.1); Sodium 132 mmol/L (136-145)
[2023-01-11 06:17] LABS: Hemoglobin 14.2 g/dL (14.1-18.0); MANUAL DIFFERENTIAL MANUAL DIFFERENTIAL (MANUAL DIFF)
[2023-01-11 06:19] LABS: Anion Gap 11.7 mEq/L (5-15); Blood Urea Nitrogen 19 mg/dl (9-20); Calcium 7.9 mg/dl (8.4-10.2); Carbon Dioxide 27 mmol/L (22.0-30.0); Creatinine Clearance Estimated 119 mL/min (50-200); Estimated Glomerular Filt Rate 74 ml/min (>60); GFR (African American) 90 ML/MIN (>60); Glucose 248 mg/dl (74-100)
[2023-01-11 06:27] LABS: Lymphocytes % 5 % (10-50); Monocytes % 10 % (2-9); Neutrophils % 79 % (42-76); Platelet Estimate Normal; RBC Morphology Normal; Total Cells Counted 100
--- NOTE | 2023-01-11 08:05 | EXP.PHA.CONS ---
Pharmacy Consult Date: 01/11/23 Time: 08:07 Referring provider: DR PURCELL Reason for Consult:: VANCOMYCIN DOSING CONSULT Allergies Allergy/AdvReac Type Severity Reaction Status Date / Time codeine Allergy Unknown Agitated Verified 11/04/20 11:00 Home Medications Medication Instructions Recorded Confirmed Type omeprazole 20 mg capsule,delayed 20 mg PO DAILY Reflux/Acid reflux 10/12/19 01/10/23 History release clopidogrel 75 mg tablet 75 mg PO DAILY Heart disease 10/24/19 01/10/23 History spironolactone 50 mg tablet 50 mg PO DAILY Fluid 10/24/19 01/10/23 History losartan 100 1 tab PO DAILY bp 07/25/20 01/10/23 History mg-hydrochlorothiazide 25 mg tablet amiodarone 200 mg tablet 200 mg PO BID bp 11/13/20 01/10/23 History New Prescriptions to Start Prescriptions: Height: 1.78 m Weight: 120.797 kg Laboratory Results:: Laboratory Results - last 24 hr 01/10/23 17:51: POC Glucose 306 H* 01/10/23 18:06: WBC 14.6 H, RBC 5.01, Hgb 16.1, Hct 46.8, MCV 93.4, MCH 32.2 H, MCHC 34.5, RDW 14.5, Plt Count 287, MPV 9.0, Neut % (Auto) 85.6 H, Lymph % (Auto) 7.4 L, [place] % (Auto) 6.1, Eos % (Auto) 0.9, Baso % (Auto) 0.1, Neut # (Auto) 12.5 H, Lymph # (Auto) 1.1, [place] # (Auto) 0.9, Eos # (Auto) 0.1, Baso # (Auto) 0.0, Total Counted 100, Neutrophils % (Manual) 86 H, Band Neutrophils % 8.0, Lymphocytes % (Manual) 3 L, Monocytes % (Manual) 3, Platelet Estimate Normal, RBC Morphology Normal, ESR 38 H, Sodium 133 L, Potassium 3.5, Chloride 94 L, Carbon Dioxide 26, Anion Gap 16.5 H, BUN 17, Creatinine 1.00, Estimated Creat Clear 121, Estimated GFR 74, Est GFR ( Amer) 90, Glucose 259 H, Hemoglobin A1c 10.2 H, Lactate 4.2 H, Calcium 8.7, Total Bilirubin 1.0, AST 41, ALT 36, Alkaline Phosphatase 78, Total Creatine Kinase 239 H, C-Reactive Protein 173.0 H, Total Protein 7.8, Albumin 3.7, Globulin 4.1 H, Albumin/Globulin Ratio 0.9 L, Acetone Level None detected 01/10/23 21:47: POC Glucose 273 H 01/10/23 22:30: Lactate 2.5 H 01/11/23 01:00: Lactate 1.9 01/11/23 05:18: POC Glucose 283 H 01/11/23 05:51: WBC 17.5 H, RBC 4.39 L, Hgb 14.2 D, Hct 41.1 L, MCV 93.5, MCH 32.3 H, MCHC 34.5, RDW 14.5, Plt Count 259, MPV 8.7, Neut % (Auto) 85.1 H, Lymph % (Auto) 6.7 L, [place] % (Auto) 6.6, Eos % (Auto) 1.3, Baso % (Auto) 0.3, Neut # (Auto) 14.9 H, Lymph # (Auto) 1.2, [place] # (Auto) 1.2 H, Eos # (Auto) 0.2, Baso # (Auto) 0.1, Total Counted 100, Neutrophils % (Manual) 79 H, Band Neutrophils % 6.0, Lymphocytes % (Manual) 5 L, Monocytes % (Manual) 10 H, Platelet Estimate Normal, RBC Morphology Normal, Sodium 132 L, Potassium 3.7, Chloride 97 L, Carbon Dioxide 27, Anion Gap 11.7, BUN 19, Creatinine 1.00, Estimated Creat Clear 119, Estimated GFR 74, Est GFR ( Amer) 90, Glucose 248 H, Calcium 7.9 L Medical History: Medical History (Updated 01/10/23 @ 20:49 by Stewart Chowdhury MD) CAD (coronary artery disease) Family history of heart disease Assessment and Plan Assessment and plan all Dx Assessment and Plan for all problems:: Pharmacokinetic dosing service Objective: Age: 67 yo Serum creatinine: 1 mg/dL Height: 70.1 Inches Weight (kg): 120.797 Diagnosis: CELLULITIS Assessment: IBW (kg): 73.23 Dosing wt(kg): 120.797 Estimated Creatinine clearance (ml/min): 72.2 CRCL method: Cockcroft and Gault using ibw(default). Drug selected: Vancomycin Loading dose (mg): Vd (liters): 84.6 (factor used: 0.7 L/kg) Hi (hr-1): 0.064 Half life (hrs): 10.83 CLvanco=?? 5.414 L/hr Recommended dose: 2000 mg Interval: 18 hrs Infusion time (hrs): 2.0 Predicted peak (mcg/mL): 32.4 Predicted trough (mcg/mL): 11.64 Total body weight is being used for vancomycin dosing. Recommendations: Give Vancomycin 2000 mg q 18 hrs with an expected Cpeak of 32.4 mcg/ml and an expected Ctrough of 1
--- NOTE | 2023-01-11 08:05 | EXP.SURG.CON ---
History of Present Illness *Admission Date: 01/10/23 *Reason for visit:: Lower back abscess; left scalp abscess *History of present illness: This is a 67-year-old gentleman seen in consultation from the hospitalist service for evaluation regarding an abscess along the mid lower back and posterior to the left ear. Please see HPI forwarded from admission H&P below. Forwarded from admission H&P: 67 year old male presented to the ED with c/o lower back pain and rash. PMHX of DM, HTN, HLD, and a fib. Daughter at bedside. Pt reports rash started three weeks prior. Two weeks ago he had a biopsy to his left ear for squamous cell carcinoma and was started on Triamcinolone acetonide by his mushroom grower who he see at [facility] for the rash on his lower back. He was states that last week he felt a bump in the same area and went to his PCP. He has an outpatient I and D planned for tomorrow with his PCP. HE was not started on any antibiotics prior to his ED visit today. He presents to the ED with an elevated HR and leukocystosis and a known source of infection. The ED physician started the pt on cefepime and vancomycin. Blood cultures were obtained. He also received a sepsis fluid replacement. The ED physician consulted the hospitalist team for further medical management. The pt arrives to the medical floor in no acute distress. A wound culture was obtained and the wound was outlined on his back. The wound is purulent, hard, and erythemic. His CT of his abd, lumbar, and thoracic spine reveals wound at L3-L4. Inflammation of the soft tissue with possible developing abscess vs. phelgmonous collection. No evidence of osteomyelitis. [facility] Disclaimer: The information contained in this section may have been updated after the patient was seen, as this information can be updated by other users. Medical History (Updated 01/11/23 @ 08:08 by Kana Ambriz MD) CAD (coronary artery disease) Family history of heart disease Social History (Updated 01/10/23 @ 22:28 by Kelli Brennan RN) Smoking Status: Never smoker second hand exposure: Yes alcohol intake: former substance use type: marijuana current occupational status: retired Travel in the last 8 weeks: None housing: house current occupational exposures/hazards: No caffeine: Yes Review of Systems *Neurologic Neurologic: Reports system reviewed and no additional complaints, except as documented Meds Home Medications and Allergies Home Medications Medication Instructions Recorded Confirmed Type omeprazole 20 mg capsule,delayed 20 mg PO DAILY Reflux/Acid reflux 10/12/19 01/10/23 History release clopidogrel 75 mg tablet 75 mg PO DAILY Heart disease 10/24/19 01/10/23 History spironolactone 50 mg tablet 50 mg PO DAILY Fluid 10/24/19 01/10/23 History losartan 100 1 tab PO DAILY bp 07/25/20 01/10/23 History mg-hydrochlorothiazide 25 mg tablet amiodarone 200 mg tablet 200 mg PO BID bp 11/13/20 01/10/23 History New Prescriptions to Start Prescriptions: Allergies Allergy/AdvReac Type Severity Reaction Status Date / Time codeine Allergy Unknown Agitated Verified 11/04/20 11:00 Exam (Inpt) Vital signs and Labs for Last 24 Hours: Temp Pulse Resp BP Pulse Ox O2 Del Method 98.2 F 105 H 17 122/72 97 Room Air 01/11/23 07:45 01/11/23 07:45 01/11/23 07:45 01/11/23 07:45 01/11/23 07:45 01/11/23 07:45 Laboratory Results - last 24 hr 01/10/23 17:51: POC Glucose 306 H* 01/10/23 18:06: WBC 14.6 H, RBC 5.01, Hgb 16.1, Hct 46.8, MCV 93.4, MCH 32.2 H, MCHC 34.5, RDW 14.5, Plt Count 287, MPV 9.0, Neut % (Auto) 85.6 H, Lymph % (Auto) 7.4 L, [place] % (Auto) 6.1, Eos % (Auto) 0.9, Baso % (Auto) 0.1, Neut # (Auto) 12.5 H, Lymph # (Auto) 1.1, [place] # (Auto) 0.9, Eos # (Auto) 0.1, Baso # (Auto) 0.0, Total Counted 100, Neutrophils % (Manual) 86 H, Band Neutrophils % 8.0, Lymphocytes % (Manual) 3 L, Monocytes % (Manual) 3, Platelet Estimate Normal, RBC Morphology Normal,
--- NOTE | 2023-01-11 09:29 | PC.NURSE ---
Pt. refused all home medication ordered this morning due to not being covered by Medicare during Observation status. Pt. will have family bring in medications later today. Pt. states he has not had any home medications since January 05 due to being sick.
--- NOTE | 2023-01-11 09:31 | PC.NURSE ---
Pt. off floor for surgery.
--- NOTE | 2023-01-11 09:51 | EXP.ANES.CKL ---
[facility] Disclaimer: The information contained in this section may have been updated after the patient was seen, as this information can be updated by other users. Medical History (Updated 01/11/23 @ 08:08 by Kana Ambriz MD) CAD (coronary artery disease) Family history of heart disease Social History (Updated 01/10/23 @ 22:28 by Kelli Brennan RN) Smoking Status: Never smoker second hand exposure: Yes alcohol intake: former substance use type: marijuana current occupational status: retired Travel in the last 8 weeks: None housing: house current occupational exposures/hazards: No caffeine: Yes [facility] Anesthesia Checklist Patient Identification Patient Identification: Arm Band, Family and Verbal (Name & ) Structural Data Admitted From: Inpatient Planned Operative Procedure/s: I/D Lower back abscess and LEFT scalp abscess Consent for Planned Operative Procedure(s) Verified: Yes Verified Documents: Surgical Consent and History and Physical Chart Verification Results Verified: CBC, BMP and Chest Xray Additional verifications Fingerstick Blood Glucose: 283 Patient : No Anesthesia Reactions: No Hx Blood Transfusions: No Blood Transfusion Reaction: No Cephalosporin Allergy: No Previous Colonoscopy: No Cardiovascular Assessment Pulse Rhythm: Irregular Peripheral Edema: Yes Airway Assessment Mallampati Score:: Class II C-Spine Mobility Assessed: Yes TMJ Mobility Assessed: Yes Dentition: Edentulous (Metal posts on bottom) Neurological Assessment Level of Consciousness: Awake, Alert and Appropriate Hx Seizures: No Numbness or tingling in extremities: No Anesthesia Plan Anesthesia Risk discussed: Yes Anesthesia Plan: Verified ASA Class: III Anesthesia Type: General
--- NOTE | 2023-01-11 10:04 | ECG_ITS ---
APPROVED REPORT Exam: Resting ECG HR:113 bpm ECG Measurements Heart Rate 113 AXES QRSd 98 QRS 38 QT 320 T 267 QTc 387 Conclusion ATRIAL FIBRILLATION WITH RAPID VENTRICULAR RESPONSE NONSPECIFIC ST & T-WAVE ABNORMALITY ABNORMAL ECG UNCONFIRMED REPORT Electronically signed by : Johann Fitzpatrick MD 01/11/2023 19:22:44
[2023-01-11 10:05] LABS: POC Glucose,Bedside 237 (70-110)
--- NOTE | 2023-01-11 11:04 | EXP.OP.NOTE ---
Date of procedure: 01/11/23 Pre-op Diagnosis:: Complex mid lower back abscess Left lateral scalp abscess Post-op Diagnosis:: Same Procedure performed:: Incision and drainage/debridement of left lateral scalp abscess and large mid lower back abscess Surgeon:: Kana Ambriz MD Anesthesia: GETA Estimated blood loss (mL): 50 Operative findings:: Multiple micro cluster abscesses at both sites Abscess/necrotic tissue debrided Operative note:: After informed consent was obtained the patient was taken to the operating room and placed in the supine position. General anesthesia was induced and he was then transferred to the right lateral decubitus position. The abscess tissue along the left lateral scalp was debrided with electrocautery. Fluid was obtained for Gram stain/culture. Multiple microabscesses/cluster noted. The area was infiltrated with 1% lidocaine and dressings were applied. Attention was then turned to the mid lower back. A very large area of necrotic/abscessed tissue was noted. Electrocautery was utilized to debride this tissue and it was then passed off for pathologic evaluation. Fluid was obtained for Gram stain/culture. A very complex deep abscess that approached the fascial margin was noted. As stated above, a cluster of microabscesses throughout the region were noted. As much purulent fluid as possible was expressed from the microabscesses. The area was infiltrated with 1% lidocaine. The wound was then packed open after electrocautery was utilized to achieve hemostasis. Dressings were applied and patient was transferred to recovery. Condition: stable Disposition: PACU Specimens:: Fluid for Gram stain/culture -left lateral scalp Fluid for Gram stain/culture -mid lower back Mid lower back necrotic/abscess tissue Complications:: No immediate
--- NOTE | 2023-01-11 11:40 | P.PNANES_ITS ---
[facility] Anesthesia Record Part I Anesthesia Record I Intake, IV Amount: 600 Hydration: Adequate Estimated blood loss (mL): 50 Urine output (mL): 0 Blood Products used (#): none Blood Pressure: 140/53 SaO2: 95 Pulse Rate: 115 Airway Patency: Patent Respiratory Rate: 18 (Coughing) Temperature: 97.6 F Patient is:: Awake (Talking) and Stable Stable to PACU at:: 11:25
--- NOTE | 2023-01-11 12:17 | CA_ITS ---
APPROVED REPORT EXAM: Comprehensive 2D, Doppler, and color-flow Echocardiogram [place]: Libby Villa RVT Ht: 5 ft 10 in Wt: 266lbs BSA: 2.36 BP: 160/84 mmHg Indications: SOA,A-FIB,CHF,CAD,DM,HTN,HLD,CELLULITIS 2D Dimensions LVOT 2.18 cm (M/F) 1.5-2.5 LA Volume 77.70 mL LA Volume Index 32.92 mL/m2 (M/F) 16-34 M-Mode Dimensions RVDd 2.72 cm (0.9-2.6) LA Diam 4.82 cm (1.9-4.0) LVDd 4.65 cm (3.5-5.7) Ao Diam 3.19 cm (2.0-3.7) LVDs 2.86 cm (3.5-5.7) IVSd 1.93 cm (0.6-1.1) PWd 0.66 cm (0.6-1.1) EF (Teich) 68.80% FS 38.50% EDV (Teich) 99.80 mL TAPSE 2.01 (<1.7) ESV (Teich) 31.10 mL LV Diastology MED E' 3.90 (< 7 cm/sec) LAT E' 14.60 (<10 cm/sec) Aortic Valve AO Peak GR. 6.20 mmHg Pulmonary Valve PV Peak Velocity 91.00 (50-150 cm/s) Tricuspid Valve TR P. Velocity 133.00 cm/s RAP Estimate 10.00 mmHg RVSP 17.10 mmHg Left Ventricle The left ventricle is normal size. The left ventricular systolic function is normal. The left ventricular ejection fraction is within the normal range. There is increased LV wall thickness. There is normal LV segmental wall motion. Diastolic function is indeterminate due to atrial fibrillation. LVEF is 55%. Right Ventricle The right ventricle is normal size. The right ventricular systolic function is normal. Atria The left atrium is mildly dilated. The right atrium size is mildly dilated. The interatrial septum is not well visualized. Aortic Valve THe aortic valve is mildly thickened. There is no aortic valvular stenosis. Trace aortic regurgitation. Mitral Valve The mitral valve is normal in structure. Mild mitral regurgitation. Tricuspid Valve The tricuspid valve leaflets are thin and pliable. Trace tricuspid regurgitation. There is insufficient TR jet to estimate RVSP. Pulmonic Valve The pulmonary valve is normal in structure. Mild pulmonic regurgitation. Great Vessels The aortic root is normal in size. The ascending aorta is normal in size. IVC is normal in size and collapses >50% with inspiration. Pericardium There is no pericardial effusion. Other Information Study Quality: Technically Difficult Conclusion Technically difficult study due to patient positioning. Normal biventricular systolic function. Mild MR, mild PI. The patient is noted to be in atrial fibrillation during the acquisition of the study images. Electronically signed by : Siobhan Patino MD 01/11/2023 18:11:19
--- NOTE | 2023-01-11 12:23 | EXP.ANES.I ---
[facility] Anesthesia Record Part I Anesthesia Record I Intake, IV Amount: 600 Hydration: Adequate Estimated blood loss (mL): 50 Urine output (mL): 0 Blood Products used (#): none Blood Pressure: 140/53 SaO2: 95 Pulse Rate: 115 Airway Patency: Patent Respiratory Rate: 18 Temperature: 97.6 F Patient is:: Awake (Talking.) and Stable Stable to PACU at:: 11:25 Comments:: Pt. remains in Uncontrolled AFib w/RVR at 115. B/P stable. No ST changes. Spoke with Hospitalist, Dr. Colin, and requested management and Cardiac Consult. Will continue to follow as needed.
[2023-01-11 12:31] LABS: POC Glucose,Bedside 254 (70-110)
--- NOTE | 2023-01-11 12:35 | EXP.ANES.II ---
[facility] Anesthesia Record Part II Anesthesia Record Part II Discharge Time: 11:47 Destination: Surgical Day Care (OP Surgery) PACU nurse assessment reviewed?: Yes Patient Condition:: Good Anesthesia Complications:: None Swallowing reflex intact?: Yes Airway Patency: Patent Cyanosis?: No Blood Pressure: 125/75 SaO2: 94 Respiratory Rate: 17 Pulse Rate: 101 Temperature: 97.6 F Mental Status: Alert & Oriented Pain level:: 0 Nausea and/or vomitting:: None Intake, IV Amount: 600 Hydration: Adequate
--- NOTE | 2023-01-11 13:59 | EXP.CARD.CON ---
History of Present Illness History of Present Illness Consult date: 01/11/23 Requesting physician: Claudio Colin Consult reason: atrial fibrillation Chief complaint: cellulitis, afib History of present illness: This is a 67-year-old white gentleman who presented to the emergency department complaints of lower back pain and a rash. The patient has a past medical history of coronary artery disease status post stenting in 2019, hypertension, hyperlipidemia, diabetes and paroxysmal atrial fibrillation. The patient's daughter and ex- are at the bedside during the assessment of the patient. His family reports that he had a rash that started about 3 weeks ago on his lower back. 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 He states that last week he felt a bump and the rash to his back worsened. He went to see his primary care provider for this and was scheduled to have what sounds like an outpatient I&D. The patient presented to the emergency department for worsening of the rash and cellulitis to his lower back and the lateral left scalp. Surgery has been consulted and the patient did undergo I&D of the left lateral scalp abscess and the large mid lower back abscess today. During the patient's preop evaluation an EKG was obtained that showed atrial fibrillation with RVR, heart rate was around 113. The patient has been in atrial fibrillation with RVR since that time. He does have a history of known paroxysmal atrial fibrillation and was on amiodarone for suppression of his atrial fibrillation. However, the patient has not been evaluated in cardiology clinic since 2000. He does not have a bottle of his amiodarone currently and he and his family are unsure of how long he has been off of the amiodarone or even how long he has been in atrial fibrillation. He does take his Eliquis and Plavix regularly but for the last week he has not taken any of his medications because he has been too nauseated and sick to swallow his medications. He denies any chest pain. He does have shortness of breath which is worse with exertion. It does improve with rest. His daughter reports that for the last 6 months he has had progressively worsening shortness of breath. He denies any lower extremity edema. He denies any fever, chills, vomiting, diarrhea. He does have some orthopnea at times with his shortness of breath. He has been very nauseated and just has not felt well over the last week. He states he has been extremely fatigued and very dizzy and lightheaded. [facility] Disclaimer: The information contained in this section may have been updated after the patient was seen, as this information can be updated by other users. Medical History (Updated 01/11/23 @ 14:07 by Elsi Jeong APRN) Atrial fibrillation with RVR Biventricular congestive heart failure CAD (coronary artery disease) DM2 (diabetes mellitus, type 2) Dyspnea Family history of heart disease GERD (gastroesophageal reflux disease) HLD (hyperlipidemia) HTN (hypertension) GÓMEZ (obstructive sleep apnea) PAF (paroxysmal atrial fibrillation) Pulmonary hypertension Social History (Updated 01/10/23 @ 22:28 by Kelli Brennan RN) Smoking Status: Never smoker second hand exposure: Yes alcohol intake: former substance use type: marijuana current occupational status: retired Travel in the last 8 weeks: None housing: house current occupational exposures/hazards: No caffeine: Yes Review of Systems Review of Systems Review of systems:: pertinent systems reviewed and negative unless documented below Constitutional Constitutional: Reports system reviewed and no additional complaints, except as documented, Denies chills, Reports fatigue, Denies fever(s), Reports poor appetite, Reports lethargy and Reports weakness Eyes Eyes: Reports system reviewed and no additional complaints, except as doc
--- NOTE | 2023-01-11 14:15 | XR_ITS ---
FINAL REPORT CLINICAL HISTORY: sob COMPARISON: 07/25/2020 FINDINGS: SINGLE-VIEW CHEST There is cardiomegaly. The mediastinum is normal. There are left lung opacities which may represent atelectasis or pneumonia. There is no pneumothorax. IMPRESSION: Left lung base atelectasis versus pneumonia. Reviewed, Interpreted and Dictated by Ej Baum III, MD Transcribed by Whitney Kahn Authenticated and [facility]
[2023-01-11 14:49] LABS: Troponin I < 0.01 ng/ml (0.00-0.034)
--- NOTE | 2023-01-11 16:02 | EXP.PN ---
Subjective *Date: 01/11/23 *Time: 16:02 Interval history: Patient is a 67-year-old male who presented with lower back and rash. He has past medical history of diabetes mellitus atrial fibrillation. Patient denies abdominal pain, chest pain, shortness of breath Exam Data for Last 24 hours Vital signs and Labs for Last 24 Hours: Temp Pulse Resp BP Pulse Ox O2 Del Method 97.6 F 103 H 16 129/79 96 Room Air 01/11/23 12:24 01/11/23 15:00 01/11/23 15:00 01/11/23 15:00 01/11/23 15:00 01/11/23 15:00 Laboratory Results - last 24 hr 01/10/23 17:51: POC Glucose 306 H* 01/10/23 18:06: WBC 14.6 H, RBC 5.01, Hgb 16.1, Hct 46.8, MCV 93.4, MCH 32.2 H, MCHC 34.5, RDW 14.5, Plt Count 287, MPV 9.0, Neut % (Auto) 85.6 H, Lymph % (Auto) 7.4 L, [place] % (Auto) 6.1, Eos % (Auto) 0.9, Baso % (Auto) 0.1, Neut # (Auto) 12.5 H, Lymph # (Auto) 1.1, [place] # (Auto) 0.9, Eos # (Auto) 0.1, Baso # (Auto) 0.0, Total Counted 100, Neutrophils % (Manual) 86 H, Band Neutrophils % 8.0, Lymphocytes % (Manual) 3 L, Monocytes % (Manual) 3, Platelet Estimate Normal, RBC Morphology Normal, ESR 38 H, Sodium 133 L, Potassium 3.5, Chloride 94 L, Carbon Dioxide 26, Anion Gap 16.5 H, BUN 17, Creatinine 1.00, Estimated Creat Clear 121, Estimated GFR 74, Est GFR ( Amer) 90, Glucose 259 H, Hemoglobin A1c 10.2 H, Lactate 4.2 H, Calcium 8.7, Total Bilirubin 1.0, AST 41, ALT 36, Alkaline Phosphatase 78, Total Creatine Kinase 239 H, C-Reactive Protein 173.0 H, Total Protein 7.8, Albumin 3.7, Globulin 4.1 H, Albumin/Globulin Ratio 0.9 L, Acetone Level None detected 10/16/23 21:47: POC Glucose 273 H 01/10/23 22:30: Lactate 2.5 H 01/11/23 01:00: Lactate 1.9 01/11/23 05:18: POC Glucose 283 H 01/11/23 05:51: WBC 17.5 H, RBC 4.39 L, Hgb 14.2 D, Hct 41.1 L, MCV 93.5, MCH 32.3 H, MCHC 34.5, RDW 14.5, Plt Count 259, MPV 8.7, Neut % (Auto) 85.1 H, Lymph % (Auto) 6.7 L, [place] % (Auto) 6.6, Eos % (Auto) 1.3, Baso % (Auto) 0.3, Neut # (Auto) 14.9 H, Lymph # (Auto) 1.2, [place] # (Auto) 1.2 H, Eos # (Auto) 0.2, Baso # (Auto) 0.1, Total Counted 100, Neutrophils % (Manual) 79 H, Band Neutrophils % 6.0, Lymphocytes % (Manual) 5 L, Monocytes % (Manual) 10 H, Platelet Estimate Normal, RBC Morphology Normal, Sodium 132 L, Potassium 3.7, Chloride 97 L, Carbon Dioxide 27, Anion Gap 11.7, BUN 19, Creatinine 1.00, Estimated Creat Clear 119, Estimated GFR 74, Est GFR ( Amer) 90, Glucose 248 H, Calcium 7.9 L 01/11/23 09:57: POC Glucose 237 H 01/11/23 12:21: POC Glucose 254 H 01/11/23 14:08: Troponin I < 0.01 I & O for Last 24 hours: Intake & Output 01/08/23 01/09/23 01/10/23 01/11/23 23:59 23:59 23:59 23:59 Intake Total 1999 1800 / 1800 Output Total 300 / 300 Balance 1999 1500 / 1500 Weight 120.797 kg 120.797 kg Constitutional Constitutional: no acute distress *Routine HEENT Exam Head: Present normocephalic Eye: Present EOMI and PERRL ENT: Present mucous membranes moist *Routine Neck Exam Neck: Present supple; Absent lymphadenopathy *Routine Respiratory Exam Respiratory: Present CTA bilaterally *Routine Cardiovascular Exam Cardiovascular: Present RRR *Routine Abdominal Exam Abdominal: Present soft and normoactive bowel sounds; Absent tenderness *Routine Extremities Exam Extremities: Absent cyanosis, clubbing or edema *Routine Skin Exam Skin: Present erythema and warm; Absent rash *Routine Neurological Exam Neurological: Present alert and oriented X3 Assessment and Plan *Assessment and plan (1) Cellulitis: Status: Acute Category: Medical Code(s): L03.90 - Cellulitis, unspecified (2) Sepsis: Status: Acute Qualifiers: Sepsis acute organ dysfunction status: with acute organ dysfunction Sepsis type: sepsis due to unspecified organism Severe sepsis acute organ dysfunction type: unspecified Severe sepsis shock status: without septic shock Qualified Code(s): A41.9 - Sepsis, unspecified organism; R65.20 - Severe sepsis
[2023-01-11 17:08] LABS: POC Glucose,Bedside 239 (70-110)
[2023-01-11 20:12] LABS: POC Glucose,Bedside 198 (70-110)
[2023-01-12] VITALS (23 sets, daily range): BP systolic 96–146; BP diastolic 66–97; PULSE 58–110; RESP 18–24; TEMP 36.4–36.8; O2SAT 92–99; BMI 37.7
--- NOTE | 2023-01-12 | CA_ITS ---
APPROVED REPORT EXAM: Comprehensive 2D, Doppler, and color-flow Echocardiogram Chiropractic Practice Manager: Tereza Roberts CRT Ht: 5 ft 10 in Wt: 266lbs BSA: 2.36 BP: 160/84 mmHg Indications: A-fibm CAD, CHF, Cellulitis, GERD Procedure After obtaining informed consent, patient underwent transesophageal echo in the OP Surgery Suite. Type of Sedation : MAC Sedation was administered by Delfina KurtzNDennis Sedation start time: 12:10 Case end Time: 12:30 Sedation was achieved intravenously with: Transesophageal probe was inserted and advanced into esophagus without difficulty by Dr. Aime Patino. The BRIGID was performed without complications. Synchronized Cardioversion acheived with 200 Joules after 2 attempt(s). Rhythm following Synchronized Cardioversion: Normal Sinus Rhythm Throughout the procedure, the blood pressure, pulse oximetry, cardiac rhythm, and rate were monitored. The patient tolerated the procedure without adverse effects. Recovery from conscious sedation was uneventful and vital signs were stable. Left Ventricle The left ventricle is normal size. The left ventricular systolic function is normal. The left ventricular ejection fraction is within the normal range. There is increased LV wall thickness. There is normal LV segmental wall motion. LVEF is 55%. Right Ventricle The right ventricle is normal size. The right ventricular systolic function is normal. Atria The left atrium is mildly dilated. No thrombus is visualized in the left atrium or appendage. The right atrium size is mildly dilated. Interatrial septum is intact without evidence of ASD or PFO. Aortic Valve The aortic valve is normal in structure. The aortic valve is trileaflet. There is no aortic valvular stenosis. No aortic regurgitation is present. Mitral Valve The mitral valve is normal in structure. No evidence of mitral valve stenosis. Mild to moderate mitral regurgitation. The pulmonary vein systolic flow is blunted, but not reversed. Tricuspid Valve The tricuspid valve leaflets are thin and pliable. Trace tricuspid regurgitation. There is insufficient TR jet to estimate RVSP. Pulmonic Valve The pulmonary valve is normal in structure. Trace pulmonic regurgitation. Great Vessels The aortic root is normal in size. The ascending aorta is normal in size. Pericardium There is no pericardial effusion. Other Information Study Quality: Adequate Conclusion Normal biventricular systolic function. Mild to moderate MR. No evidence of LA or TIO thrombus. The patient initially underwent attempted cardioversion with 150 J. However, his rhythm did not convert and remained in atrial fibrillation. Subsequently, he underwent a second cardioversion with 200 J, which successfully converted his rhythm from atrial fibrillation to normal sinus rhythm. Electronically signed by : Siobhan Patino MD 01/14/2023 00:32:53
--- NOTE | 2023-01-12 05:40 | PC.NURSE ---
npo after mn for pamella with cardioversion. remains in atrial fib rate controlled
[2023-01-12 06:13] LABS: POC Glucose,Bedside 230 (70-110)
[2023-01-12 06:42] LABS: Chloride 99 mmol/L (98-107)
[2023-01-12 06:43] LABS: Potassium 3.4 mmoL/L (3.5-5.1); Sodium 137 mmol/L (136-145)
[2023-01-12 06:45] LABS: Alanine Aminotransferase 31 U/L (12-78); Alkaline Phosphatase 70 U/L (38-126); Anion Gap 11.4 mEq/L (5-15); Aspartate Amino Transferase 38 U/L (17-59); Bilirubin,Direct 0.4 mg/dl (0.0-0.4); Bilirubin,Indirect 0.2 mg/dL (0.0-0.9); Bilirubin,Total 0.6 mg/dl (0.2-1.3); Bilirubin,Unconjugated 0.2 mg/dL (0.0-1.1); Blood Urea Nitrogen 19 mg/dl (9-20); Carbon Dioxide 30 mmol/L (22.0-30.0); Creatinine Clearance Estimated 107 mL/min (50-200); Estimated Glomerular Filt Rate 66 ml/min (>60); GFR (African American) 80 ML/MIN (>60)
[2023-01-12 06:46] LABS: Calcium 7.7 mg/dl (8.4-10.2); Chol/HDL Ratio 5.8 (1-3.5); Cholesterol 104 mg/dl (140-200); Glucose 249 mg/dl (74-100); HDL Cholesterol 18 mg/dl (40-60); Total Protein,Serum 6.2 g/dl (6.3-8.2); Triglycerides 91 mg/dl (30-150); VLDL Cholesterol 18 mg/dL (0-40)
[2023-01-12 06:51] LABS: Basophils # 0.1 K/mm3 (0-0.2); Basophils % 0.5 % (0.1-2.0); Eosinophils # 0.6 K/mm3 (0.0-0.4); Eosinophils % 4.2 % (0.1-12.0); Hematocrit 40.9 % (42.0-52.0); Hemoglobin 14.1 g/dL (14.1-18.0); Lymphocytes # 1.2 K/mm3 (0.7-4.5); Lymphocytes % 8.4 % (10-50); Mean Corpuscular HGB Conc 34.6 g/dL (31.8-35.4); Mean Corpuscular Hemoglobin 32.3 pg (27.0-31.2); Mean Corpuscular Volume 93.4 fl (80-94); Mean Platelet Volume 8.7 fl (7.4-10.4); Monocytes # 0.9 K/mm3 (0.1-1.0); Monocytes % 5.8 % (1.7-9.3); Neutrophils % 81.2 % (37.0-80.0); Platelet Count 296 K/mm3 (142-424); Red Blood Count 4.38 M/mm3 (4.60-6.20); Red Cell Distribution Width 14.5 % (11.5-17.5); White Blood Count 14.8 K/mm3 (4.8-10.8)
[2023-01-12 06:57] LABS: Direct LDL Cholesterol 67.41 mg/dL (100-129)
--- NOTE | 2023-01-12 08:37 | EXP.SURG.PN ---
Subjective Patient reports: no new complaints Exam Data for Last 24 hours Vital signs and Labs for Last 24 Hours: Temp Pulse Resp BP Pulse Ox O2 Del Method 98.1 F 80 18 128/82 95 Room Air 01/12/23 07:14 01/12/23 08:00 01/12/23 07:14 01/12/23 07:14 01/12/23 07:14 01/12/23 07:14 Laboratory Results - last 24 hr 01/11/23 09:57: POC Glucose 237 H 01/11/23 12:21: POC Glucose 254 H 01/11/23 14:08: Troponin I < 0.01 01/11/23 17:00: POC Glucose 239 H 01/11/23 20:06: POC Glucose 198 H 01/12/23 05:53: WBC 14.8 H, RBC 4.38 L, Hgb 14.1, Hct 40.9 L, MCV 93.4, MCH 32.3 H, MCHC 34.6, RDW 14.5, Plt Count 296, MPV 8.7, Neut % (Auto) 81.2 H, Lymph % (Auto) 8.4 L, [place] % (Auto) 5.8, Eos % (Auto) 4.2, Baso % (Auto) 0.5, Neut # (Auto) 12.0 H, Lymph # (Auto) 1.2, [place] # (Auto) 0.9, Eos # (Auto) 0.6 H, Baso # (Auto) 0.1, Sodium 137, Potassium 3.4 L, Chloride 99, Carbon Dioxide 30, Anion Gap 11.4, BUN 19, Creatinine 1.10, Estimated Creat Clear 107, Estimated GFR 66, Est GFR ( Amer) 80, Glucose 249 H, Calcium 7.7 L, Total Bilirubin 0.6, Direct Bilirubin 0.4, Conjugated Bilirubin 0.0, Indirect Bilirubin 0.2, Unconjugated Bilirubin 0.2, AST 38, ALT 31, Alkaline Phosphatase 70, Total Protein 6.2 L, Albumin 3.0 L D, Triglycerides 91, Cholesterol 104 L, LDL Cholesterol Direct 67.41 L, VLDL Cholesterol 18, HDL Cholesterol 18 L, Cholesterol/HDL Ratio 5.8 H 01/12/23 06:00: POC Glucose 230 H I & O for Last 24 hours: Intake & Output 10/01/10/23 01/11/23 01/12/23 11:59 11:59 11:59 11:59 Intake Total 2600 / 2600 3013 / 3013 Output Total 300 / 300 1150 / 1150 Balance 2300 / 2300 1863 / 1863 Weight 266 lb 5 oz 263 lb 7 oz Constitutional Constitutional: no acute distress *Routine Respiratory Exam Respiratory: Absent respiratory distress *Routine Cardiovascular Exam Comments: Currently rate controlled *Routine Skin Exam Comments: Dressings in place. No spreading cellulitis. Progress Note: A&P Assessment and plan (1) Abscess of lower back: Status: Acute Assessment and plan: Dressing changes Continue antibiotics (2) Abscess, scalp: Status: Acute Assessment and plan: Dressing changes (3) Atrial fibrillation with RVR: Status: Acute Assessment and plan: As per primary service and cardiology
[2023-01-12 09:09] LABS: Free T4 (Free Thyroxine) 2.84 ng/dl (0.78-2.19)
[2023-01-12 09:24] LABS: Thyroid Stimulating Hormone 0.78 uIU/mL (0.465-4.68)
--- NOTE | 2023-01-12 10:13 | PC.NURSE ---
Courtesy Round Patient awake laying in bed with visitor at bedside. Trash emptied and patient voiced no other needs at this time. Call light within reach
--- NOTE | 2023-01-12 10:41 | ECG_ITS ---
APPROVED REPORT Exam: Resting ECG HR:74 bpm ECG Measurements Heart Rate 74 AXES QRSd 108 QRS 16 QT 381 T 18 QTc 409 Conclusion ATRIAL FLUTTER/TACHYCARDIA WITH ABERRANT CONDUCTION OR VENTRICULAR PREMATURE COMPLEXES POSSIBLE INFERIOR MYOCARDIAL INFARCTION , PROBABLY OLD [30 ms Q WAVE IN II/aVF] ABNORMAL RHYTHM ECG UNCONFIRMED REPORT Electronically signed by : Johann Fitzpatrick MD 01/13/2023 10:10:01
[2023-01-12 10:46] LABS: INR 1.22 (0.9-1.1)
--- NOTE | 2023-01-12 10:51 | EXP.CARD.PN ---
Subjective Subjective Date: 01/12/23 Time: 09:45 Principal diagnosis: afib with RVR Interval history: This is a 67-year-old gentleman who presented to the emergency department complaints of lower back pain and rash. The patient was found to have a wound to his lower back in the back of his left lateral scalp. He did undergo I&D of both wounds yesterday. The patient was found to be in atrial fibrillation with RVR preoperatively and he remained in atrial fibrillation with RVR postoperatively and cardiology was consulted. The patient was given some IV metoprolol yesterday and then started on oral Toprol. He is rate controlled this morning but remains in atrial fibrillation with a heart rate in the 70s. He denies any chest pain or pressure this morning. He is short of breath with exertion and this does improve with rest. His family reports that he has been short of breath for the last 6 months. The patient states that he is probably been short of breath longer than this and it progressively worsens. He was given a dose of IV Lasix yesterday but accurate intake and output was not recorded. He denies any fever, chills, nausea, vomiting, diarrhea, PND or orthopnea. The patient does have some dizziness and feels very fatigued and lightheaded at times. Exam Data for Last 24 hours Vital signs and Labs for Last 24 Hours: Temp Pulse Resp BP Pulse Ox O2 Del Method 98.1 F 80 18 128/82 95 Room Air 01/12/23 07:14 01/12/23 08:00 01/12/23 07:14 01/12/23 07:14 01/12/23 07:14 01/12/23 08:58 Laboratory Results - last 24 hr 01/11/23 12:21: POC Glucose 254 H 01/11/23 14:08: Troponin I < 0.01 01/11/23 17:00: POC Glucose 239 H 01/11/23 20:06: POC Glucose 198 H 01/12/23 05:53: WBC 14.8 H, RBC 4.38 L, Hgb 14.1, Hct 40.9 L, MCV 93.4, MCH 32.3 H, MCHC 34.6, RDW 14.5, Plt Count 296, MPV 8.7, Neut % (Auto) 81.2 H, Lymph % (Auto) 8.4 L, [place] % (Auto) 5.8, Eos % (Auto) 4.2, Baso % (Auto) 0.5, Neut # (Auto) 12.0 H, Lymph # (Auto) 1.2, [place] # (Auto) 0.9, Eos # (Auto) 0.6 H, Baso # (Auto) 0.1, Sodium 137, Potassium 3.4 L, Chloride 99, Carbon Dioxide 30, Anion Gap 11.4, BUN 19, Creatinine 1.10, Estimated Creat Clear 107, Estimated GFR 66, Est GFR ( Amer) 80, Glucose 249 H, Calcium 7.7 L, Total Bilirubin 0.6, Direct Bilirubin 0.4, Conjugated Bilirubin 0.0, Indirect Bilirubin 0.2, Unconjugated Bilirubin 0.2, AST 38, ALT 31, Alkaline Phosphatase 70, Total Protein 6.2 L, Albumin 3.0 L D, Triglycerides 91, Cholesterol 104 L, LDL Cholesterol Direct 67.41 L, VLDL Cholesterol 18, HDL Cholesterol 18 L, Cholesterol/HDL Ratio 5.8 H, TSH 0.78, Free T4 2.84 H 01/12/23 06:00: POC Glucose 230 H 01/12/23 10:05: PT 13.0 H, INR 1.22 H I & O for Last 24 hours: Intake & Output 01/09/23 01/10/23 01/11/23 01/12/23 23:59 23:59 23:59 23:59 Intake Total 1999 1800 / 1800 1813 / 1813 Output Total 1050 / 1050 400 / 400 Balance 1999 750 / 750 1413 / 1413 Weight 266 lb 5 oz 266 lb 5 oz 263 lb 7 oz Narrative: Telemetry strip shows atrial fibrillation with a heart rate in the 70s. Constitutional Constitutional: no acute distress and obese *Routine HEENT Exam Head: Present normocephalic ENT: Present mucous membranes moist *Routine Neck Exam Neck: Present supple, full ROM and normal carotid upstroke; Absent JVD, carotid bruit or lymphadenopathy *Routine Respiratory Exam Respiratory: Present CTA bilaterally, normal respiratory effort, able to speak in complete sentences and symmetric chest movement *Routine Cardiovascular Exam Cardiovascular: Present Normal S1, Normal S2 and irregularly irregular; Absent murmur or gallop *Routine Abdominal Exam Abdominal: Present soft and normoactive bowel sounds; Absent tenderness, distended or organomegaly *Routine Extremities Exam Extremities: Present full ROM, pulses intact and normal capillary refill; Absent cyanosis, clubbing or edema *Routine Skin Exam Skin: Present warm and wounds; Absent erythema Comments: Wound
--- NOTE | 2023-01-12 12:13 | SUR.PHASEII ---
1212 - Spoke to Juju Condon RN (HS) about pt needing a stepdown bed. Pt will be going back upstair on amio gtt per Dr. Patino . Awaiting call back for bed assignment. 1214 - Pt to go to room 216 per equipment operator warehouse.
--- NOTE | 2023-01-12 12:49 | SUR.OPER ---
1145- pt cardioverted at 150j per Dr. Patino unsuccessful. pt then cardioverted for a second time at 200j per Dr. Patino and was successful. pt in normal sinus rhythm at this time. ekg performed at this time as well by respiratory staff.
--- NOTE | 2023-01-12 13:04 | PC.NURSE ---
WOUND TO THE BACK PACKED WITH DRY KERLIX AND REINFORCED WITH 4X4 AND TAPE. WOUND TO THE HEAD DRESSED WITH DRY 4X4 AND TAPE. WOUND TO THE HEAD CHANGED BY OR STAFF BEFORE ARRIVING BACK TO THE FLOOR. WOUND TO THE BACK CHANGED BY 2ND FLOOR STAFF.
--- NOTE | 2023-01-12 14:27 | SW/DCPLANNER ---
Addendum entered by Sondra Ramirez 01/13/23 10:23: Patient information/order will be faxed to [facility] today for wound care. Patient will discharge home this afternoon. Original Note: I spoke w/ patient and his family regarding dressing changes once medically stable for discharge. Family stated they were educated by nursing staff (Laura Pretty) regarding dressing changes and feel they are comfortable to perform changes at home. Patient/family are agreeable to home health services at time of discharge. I will continue to follow up w/ patient and family until discharge. Discharge date is unknown at this time.
[2023-01-12 17:25] LABS: POC Glucose,Bedside 279 (70-110)
--- NOTE | 2023-01-12 17:26 | PC.NURSE ---
1645 pt monitor technician alarmed for hr of 38 and sustainted for approx 3mins. upon entering room pt was lying on right side, awake and alert and asymptomatic. pt reports nad or soa. pt hr again noted to drip to 37, pt asymptomatic at this time. contacted Elsi Jeong in cardiology. relayed via elsi that per Dr Patino, pt amiodarone drip to be discontinued, oral metoprolol to be discontinued as well.
--- NOTE | 2023-01-12 18:23 | EXP.PN ---
Subjective *Date: 01/12/23 *Time: 18:28 Interval history: seen at bedside, denied CP, SOB, N/V, Abd pain, he had surgical procedure I&D yesterday, tolerated well Exam Data for Last 24 hours Vital signs and Labs for Last 24 Hours: Temp Pulse Resp BP Pulse Ox O2 Del Method O2 Flow Rate 97.6 F 62 20 124/70 98 Nasal Cannula 2 01/12/23 15:57 01/12/23 18:00 01/12/23 18:00 01/12/23 18:00 01/12/23 18:00 01/12/23 18:00 01/12/23 18:00 Laboratory Results - last 24 hr 01/11/23 20:06: POC Glucose 198 H 01/12/23 05:53: WBC 14.8 H, RBC 4.38 L, Hgb 14.1, Hct 40.9 L, MCV 93.4, MCH 32.3 H, MCHC 34.6, RDW 14.5, Plt Count 296, MPV 8.7, Neut % (Auto) 81.2 H, Lymph % (Auto) 8.4 L, Chambers % (Auto) 5.8, Eos % (Auto) 4.2, Baso % (Auto) 0.5, Neut # (Auto) 12.0 H, Lymph # (Auto) 1.2, Chambers # (Auto) 0.9, Eos # (Auto) 0.6 H, Baso # (Auto) 0.1, Sodium 137, Potassium 3.4 L, Chloride 99, Carbon Dioxide 30, Anion Gap 11.4, BUN 19, Creatinine 1.10, Estimated Creat Clear 107, Estimated GFR 66, Est GFR ( Amer) 80, Glucose 249 H, Calcium 7.7 L, Total Bilirubin 0.6, Direct Bilirubin 0.4, Conjugated Bilirubin 0.0, Indirect Bilirubin 0.2, Unconjugated Bilirubin 0.2, AST 38, ALT 31, Alkaline Phosphatase 70, Total Protein 6.2 L, Albumin 3.0 L D, Triglycerides 91, Cholesterol 104 L, LDL Cholesterol Direct 67.41 L, VLDL Cholesterol 18, HDL Cholesterol 18 L, Cholesterol/HDL Ratio 5.8 H, TSH 0.78, Free T4 2.84 H 01/12/23 06:00: POC Glucose 230 H 01/12/23 10:05: PT 13.0 H, INR 1.22 H 01/12/23 17:03: POC Glucose 279 H I & O for Last 24 hours: Intake & Output 01/09/23 01/10/23 01/11/23 01/12/23 23:59 23:59 23:59 23:59 Intake Total 1999 1800 / 1800 2275 / 2275 Output Total 1050 / 1050 400 / 400 Balance 1999 750 / 750 1875 / 1875 Weight 120.797 kg 120.797 kg 119.493 kg Constitutional Constitutional: no acute distress *Routine HEENT Exam Head: Present normocephalic Eye: Present EOMI and PERRL ENT: Present mucous membranes moist *Routine Neck Exam Neck: Present supple; Absent lymphadenopathy *Routine Respiratory Exam Respiratory: Present CTA bilaterally *Routine Cardiovascular Exam Cardiovascular: Present RRR *Routine Abdominal Exam Abdominal: Present soft and normoactive bowel sounds; Absent tenderness *Routine Extremities Exam Extremities: Absent cyanosis, clubbing or edema Routine Back/Spine/Pelvis Exam Comments: Back covered with dressing *Routine Skin Exam Skin: Present warm; Absent rash *Routine Neurological Exam Neurological: Present alert and oriented X3 Assessment and Plan *Assessment and plan (1) Cellulitis: Status: Acute Category: Medical Code(s): L03.90 - Cellulitis, unspecified (2) Sepsis: Status: Acute Qualifiers: Sepsis acute organ dysfunction status: with acute organ dysfunction Sepsis type: sepsis due to unspecified organism Severe sepsis acute organ dysfunction type: unspecified Severe sepsis shock status: without septic shock Qualified Code(s): A41.9 - Sepsis, unspecified organism; R65.20 - Severe sepsis without septic shock Category: Medical Code(s): A41.9 - Sepsis, unspecified organism (3) Abscess of lower back: Status: Acute Category: Medical Code(s): L02.212 - Cutaneous abscess of back [any part, except buttock] (4) DM2 (diabetes mellitus, type 2): Status: Chronic Qualifiers: Diabetes mellitus complication status: with other specified complication Diabetes mellitus clinical research scientist insulin use: unspecified clinical research scientist insulin use status Qualified Code(s): E11.69 - Type 2 diabetes mellitus with other specified complication Category: Medical Code(s): E11.9 - Type 2 diabetes mellitus without complications (5) GERD (gastroesophageal reflux disease): Status: Chronic Qualifiers: Esophagitis presence: esophagitis presence not specified Qualified Code(s): K21.9 - Gastro-esophagea
[2023-01-12 23:53] LABS: Vancomycin,Trough 9.3 ug/mL (5.0-10.0)
[2023-01-13] VITALS (9 sets, daily range): BP systolic 96–135; BP diastolic 53–75; PULSE 55–80; RESP 16–22; TEMP 36.4–36.8; O2SAT 90–98; BMI 37.7
--- NOTE | 2023-01-13 01:36 | PC.NURSE ---
Spoke with Shahida at [facility] about vanc trough. States to give a one time dose of 2500mg vanc at this time and she will enter the order.
[2023-01-13 02:27] LABS: POC Glucose,Bedside 275 (70-110)
[2023-01-13 05:10] LABS: Vancomycin,Peak 45.4 ug/ml (11-39)
[2023-01-13 05:43] LABS: POC Glucose,Bedside 184 (70-110)
--- NOTE | 2023-01-13 06:12 | PC.NURSE ---
Pt has been pleasant and cooperative, a/o x4. Pt has had 2 unmeasured voids this shift due to pt missing urinal. Pt has not voiced any c/o t/o shift to staff. dsg change performed to right mid back(see wound note) and left side of head. dsgs CDI. Pt has remained in NSR on tele t/o majority of night. Pt does have some ectopy at times and will also torres down into the 30s at times. Pt remains asymptomatic of this, eLty Vaughn APRN made aware. Pt on 2 L nc while asleep for sleep apnea. Bed in low position, call light within reach. Bed alarm on for pt safety.
--- NOTE | 2023-01-13 07:08 | EXP.SURG.PN ---
Subjective Patient reports: no new complaints Exam Data for Last 24 hours Vital signs and Labs for Last 24 Hours: Temp Pulse Resp BP Pulse Ox O2 Del Method O2 Flow Rate 98.1 F 67 21 128/75 98 Room Air 2 01/13/23 04:00 01/13/23 06:00 01/13/23 06:00 01/13/23 06:00 01/13/23 06:00 01/13/23 06:29 01/13/23 06:00 Laboratory Results - last 24 hr 01/12/23 05:53: TSH 0.78, Free T4 2.84 H 01/12/23 10:05: PT 13.0 H, INR 1.22 H 01/12/23 17:03: POC Glucose 279 H 01/12/23 21:26: POC Glucose 275 H 01/12/23 23:24: Vancomycin Trough 9.3 01/13/23 04:30: Vancomycin Peak 45.4 H* 01/13/23 05:18: POC Glucose 184 H I & O for Last 24 hours: Intake & Output 01/10/23 01/11/23 01/12/23 01/13/23 11:59 11:59 11:59 11:59 Intake Total 2600 / 2600 3013 / 3013 2604 / 2604 Output Total 300 / 300 1150 / 1150 500 / 500 Balance 2300 / 2300 1863 / 1863 2104 / 2104 Weight 266 lb 5 oz 263 lb 7 oz 263 lb 7.238 oz Microbiology Reports for the Last 24 Hours: Microbiology 01/11/23 10:38 Scalp - Abscess Abscess Culture - Preliminary NO GROWTH AFTER 24 HOURS Constitutional Constitutional: no acute distress *Routine Respiratory Exam Respiratory: Absent respiratory distress *Routine Cardiovascular Exam Cardiovascular: Absent tachycardia *Routine Skin Exam Comments: Abscess incision and drainage/debridement sites with clean wound base/margin. No spreading cellulitis. Progress Note: A&P Assessment and plan (1) Abscess of lower back: Status: Acute Assessment and plan: Continue dressing changes (2) Abscess, scalp: Status: Acute Assessment and plan: Continue dressing changes (3) Atrial fibrillation with RVR: Status: Acute
--- NOTE | 2023-01-13 08:14 | PC.NURSE ---
Assisted patient back to bed from bathroom. Patient steady on feet. Two dressings noted, left lower back and left posterior head, CDI. Patient denies any needs and rates pain 0/10 at this time.
--- NOTE | 2023-01-13 09:35 | EXP.PHA.CONS ---
Pharmacy Consult Date: 01/13/23 Time: 09:35 Referring provider: DR. PURCELL Reason for Consult:: VANCOMYCIN LEVELS Allergies Allergy/AdvReac Type Severity Reaction Status Date / Time codeine Allergy Unknown Agitated Verified 01/11/23 08:59 Home Medications Medication Instructions Recorded Confirmed Type omeprazole 20 mg capsule,delayed 20 mg PO DAILY Reflux/Acid reflux 10/12/19 01/11/23 History release clopidogrel 75 mg tablet 75 mg PO DAILY Heart disease 10/24/19 01/11/23 History losartan 100 1 tab PO DAILY 07/25/20 01/11/23 History mg-hydrochlorothiazide 25 mg tablet apixaban 5 mg tablet (Eliquis) 5 mg PO BID Blood Thinner 01/11/23 01/11/23 History atorvastatin 10 mg tablet 10 mg PO DAILY Cholesterol 01/11/23 01/11/23 History insulin human U-100 NPH-regulr 40 unit SQ HS DM 01/11/23 01/11/23 History 70-30 mix 100 unit/mL subcutaneous susp (Novolin 70/30 U-100 Insulin) insulin human U-100 NPH-regulr 80 unit SQ DAILY DM 01/11/23 01/11/23 History 70-30 mix 100 unit/mL subcutaneous susp (Novolin 70/30 U-100 Insulin) spironolactone 25 mg tablet 25 mg PO DAILY 01/11/23 01/11/23 History New Prescriptions to Start Prescriptions: Height: 1.78 m Weight: 119.5 kg Laboratory Results:: Laboratory Results - last 24 hr 01/12/23 10:05: PT 13.0 H, INR 1.22 H 01/12/23 17:03: POC Glucose 279 H 01/12/23 21:26: POC Glucose 275 H 01/12/23 23:24: Vancomycin Trough 9.3 01/13/23 04:30: Vancomycin Peak 45.4 H* 01/13/23 05:18: POC Glucose 184 H Medical History: Medical History (Updated 01/11/23 @ 14:07 by Elsi Jeong APRN) Atrial fibrillation with RVR Biventricular congestive heart failure CAD (coronary artery disease) DM2 (diabetes mellitus, type 2) Dyspnea Family history of heart disease GERD (gastroesophageal reflux disease) HLD (hyperlipidemia) HTN (hypertension) GÓMEZ (obstructive sleep apnea) PAF (paroxysmal atrial fibrillation) Pulmonary hypertension Assessment and Plan Assessment and plan all Dx Assessment and Plan for all problems:: PATIENT'S VANCOMYCIN TROUGH LEVEL WAS 9.3 MCG/ML OVERNIGHT. VANCOMYCIN PEAK LEVEL WAS DRAWN ABOUT 2 HOURS AFTER DOSE WAS STARTED AND WAS 45.4 MCG/ML. RECOMMEND CHANGING DOSE TO VANCOMYCIN 1750 MG Q12H AT THIS TIME.
--- NOTE | 2023-01-13 09:48 | EXP.CARD.PN ---
Subjective Subjective Date: 01/13/23 Time: 09:00 Principal diagnosis: afib with RVR Interval history: This is a 67-year-old gentleman who presented to the emergency department complaints of lower back pain, rash and a wound. Patient was found to have a wound to his lower back and left lateral scalp. He did undergo I&D of both of the wounds since being hospitalized. Patient was found to be in atrial fibrillation with RVR. He did rate control with oral metoprolol. He underwent successful BRIGID and cardioversion yesterday and remains in sinus rhythm. He was started on an amiodarone drip and oral amiodarone post cardioversion. However he did get bradycardic yesterday and the amiodarone drip was stopped. He remains on oral amiodarone this morning in sinus rhythm with a rate in the 70s. He denies any chest pain or pressure. He denies any shortness of breath or edema. He denies any fever, chills, nausea, vomiting, diarrhea, PND or orthopnea.. Exam Data for Last 24 hours Vital signs and Labs for Last 24 Hours: Temp Pulse Resp BP Pulse Ox O2 Del Method O2 Flow Rate 97.6 F 68 18 99/57 L 94 L Room Air 2 01/13/23 07:26 01/13/23 08:00 01/13/23 08:00 01/13/23 08:00 01/13/23 08:00 01/13/23 08:00 01/13/23 06:00 Laboratory Results - last 24 hr 01/12/23 10:05: PT 13.0 H, INR 1.22 H 01/12/23 17:03: POC Glucose 279 H 01/12/23 21:26: POC Glucose 275 H 01/12/23 23:24: Vancomycin Trough 9.3 01/13/23 04:30: Vancomycin Peak 45.4 H* 01/13/23 05:18: POC Glucose 184 H I & O for Last 24 hours: Intake & Output 01/10/23 01/11/23 01/12/23 01/13/23 23:59 23:59 23:59 23:59 Intake Total 1999 1800 / 1800 2497 / 2497 2160 / 2160 Output Total 1050 / 1050 750 / 900 150 / 150 Balance 1999 750 / 750 1747 / 1597 2009 Weight 266 lb 5 oz 266 lb 5 oz 263 lb 7 oz 263 lb 7.238 oz Microbiology Reports for the Last 24 Hours: Microbiology 01/11/23 10:38 Scalp - Abscess Abscess Culture - Preliminary NO GROWTH AFTER 24 HOURS Narrative: Telemetry strip is sinus rhythm with a rate of 72 bpm. Constitutional Constitutional: no acute distress and obese *Routine HEENT Exam Head: Present normocephalic ENT: Present mucous membranes moist *Routine Neck Exam Neck: Present supple, full ROM and normal carotid upstroke; Absent JVD, carotid bruit or lymphadenopathy *Routine Respiratory Exam Respiratory: Present CTA bilaterally, normal respiratory effort, able to speak in complete sentences and symmetric chest movement *Routine Cardiovascular Exam Cardiovascular: Present RRR, Normal S1 and Normal S2; Absent murmur or gallop *Routine Abdominal Exam Abdominal: Present soft and normoactive bowel sounds; Absent tenderness, distended or organomegaly *Routine Extremities Exam Extremities: Present full ROM, pulses intact and normal capillary refill; Absent cyanosis, clubbing or edema *Routine Skin Exam Skin: Present warm and wounds; Absent erythema Comments: Wounds with dressing noted to the back of his left lateral scalp and his mid lower back *Routine Neurological Exam Neurological: Present alert, oriented X3 and CN II-XII intact; Absent sensory deficit or motor deficit Routine Psychiatric Exam Psychiatric: Present normal affect Progress Note: A&P Assessment and plan (1) Atrial fibrillation with RVR: Status: Acute (2) Abscess of lower back: Status: Acute (3) Abscess, scalp: Status: Acute (4) Pulmonary hypertension: Status: Acute (5) Biventricular congestive heart failure: Status: Acute (6) Dyspnea: Status: Chronic (7) HTN (hypertension): Status: Chronic (8) HLD (hyperlipidemia): Status: Chronic (9) GERD (gastroesophageal reflux disease): Status: Chronic (10) DM2 (diabetes mellitus, type 2): Status: Chronic (11) PAF (paroxysmal atrial fibrillation): Status: Chronic (12) GÓMEZ (obstructive sleep apnea): Status: Chron
--- NOTE | 2023-01-13 12:14 | EXP.DC.SUM ---
General Admission date:: 01/10/23 Discharge date: 01/13/23 HPI HPI HPI: This is a 67-year-old gentleman seen in consultation from the hospitalist service for evaluation regarding an abscess along the mid lower back and posterior to the left ear. Please see HPI forwarded from admission H&P below. Forwarded from admission H&P: 67 year old male presented to the ED with c/o lower back pain and rash. PMHX of DM, HTN, HLD, and a fib. Daughter at bedside. Pt reports rash started three weeks prior. 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 He was states that last week he felt a bump in the same area and went to his PCP. He has an outpatient I and D planned for tomorrow with his PCP. HE was not started on any antibiotics prior to his ED visit today. He presents to the ED with an elevated HR and leukocystosis and a known source of infection. The ED physician started the pt on cefepime and vancomycin. Blood cultures were obtained. He also received a sepsis fluid replacement. The ED physician consulted the hospitalist team for further medical management. The pt arrives to the medical floor in no acute distress. A wound culture was obtained and the wound was outlined on his back. The wound is purulent, hard, and erythemic. His CT of his abd, lumbar, and thoracic spine reveals wound at L3-L4. Inflammation of the soft tissue with possible developing abscess vs. phelgmonous collection. No evidence of osteomyelitis. Hospital Course Hospital Course Hospital Course: Patient was seen and evaluated at the bedside on the day of discharge. Patient is stable for discharge. Patient wishes to be discharged. All patient questions were answered and patient was given time to ask questions. Patient was discharged in stable condition. Patient is a 67-year-old male who presented with lower back and rash. He has past medical history of diabetes mellitus atrial fibrillation. Assessment Lower back cellulitis - improved Complex mid lower back abscess Sepsis POA - resolved Vancomycin, Zosyn - switch to PO doxycline at discharge Atrial fibrillation with RVR - improved Monitor on cardiac telemetry s/p BRIGID, tolerated well Cardiology was consulted and following Constipation was started on metoprolol p.o. per cardiology Continue Eliquis Diabetes mellitus SSI scale Resume home Medications DVT prophylaxis-on Eliquis Exam Data for Last 24 hours Vital signs and Labs for Last 24 Hours: Temp Pulse Resp BP Pulse Ox O2 Del Method O2 Flow Rate 97.6 F 72 16 119/55 L 94 L Room Air 2 01/13/23 11:10 01/13/23 11:10 01/13/23 11:10 01/13/23 11:10 01/13/23 11:10 01/13/23 11:10 01/13/23 06:00 Laboratory Results - last 24 hr 01/12/23 17:03: POC Glucose 279 H 01/12/23 21:26: POC Glucose 275 H 01/12/23 23:24: Vancomycin Trough 9.3 01/13/23 04:30: Vancomycin Peak 45.4 H* 01/13/23 05:18: POC Glucose 184 H I & O for Last 24 hours: Intake & Output 01/10/23 01/11/23 01/12/23 01/13/23 23:59 23:59 23:59 23:59 Intake Total 1999 1800 / 1800 2497 / 2497 2160 / 2160 Output Total 1050 / 1050 750 / 900 150 / 150 Balance 1999 750 / 750 1747 / 1597 2009 Weight 120.797 kg 120.797 kg 119.493 kg 119.5 kg Microbiology Reports for the Last 24 Hours: Microbiology 01/11/23 10:38 Scalp - Abscess Abscess Culture - Preliminary NO GROWTH AFTER 24 HOURS Constitutional Constitutional: no acute distress *Routine HEENT Exam Head: Present normocephalic Eye: Present EOMI and PERRL ENT: Present mucous membranes moist *Routine Neck Exam Neck: Present supple; Absent lymphadenopathy *Routine Respiratory Exam Respiratory: Present CTA bilaterally *Routine Cardiovascular Exam Cardiovascular: Present RRR *Routine Abdominal Exam Abdominal: Present soft and normoactive
--- NOTE | 2023-01-14 13:10 | CARE MANAGER ---
Patient's daughter returned phone call. She states patient is doing well. They have changed his dressings as instructed and he has his new medications. They are aware of follow up appointments and deny questions or concerns. GABRIELLE Knight
--- NOTE | 2023-01-20 17:17 | PC.NURSE ---
pt blood culture with id/sensitivity on worklist. pt d/c from facility on doxycycline. Notified dr. lyons who reviewed pt id/sensitivity, states no changes or new orders needed.
== END 2023-01-13 15:00 | disposition home health service (06) | DRG 872 ==
LOC: ER 20:49 → 2ND 21:10
PROVIDERS: Internal Medicine; Nurse Practitioner Critical Care Medicine; Nurse Practitioner Family; Surgery; Admitting Provider Internal Medicine Adolescent Medicine; Emergency Provider Emergency Medicine; PCP Family Medicine; Visit Provider Internal Medicine Adolescent Medicine
PROC: 0JB73ZZ Excision of Back Subcutaneous Tissue and Fascia, Percutaneous Approach (ICD-10-PCS; principal; 2023-01-11 10:30)
PROC: B24BZZ4 Ultrasonography of Heart with Aorta, Transesophageal (ICD-10-PCS; principal; 2023-01-12 11:00)
DX: A41.9 Sepsis, unspecified organism (principal); L02.212 Cutaneous abscess of back [any part, except buttock and flank]; L02.811 Cutaneous abscess of head [any part, except face]; L03.312 Cellulitis of back [any part except buttock and flank]; M60.08 Infective myositis, other site; R65.20 Severe sepsis without septic shock; E11.69 Type 2 diabetes mellitus with other specified complication; K21.9 Gastro-esophageal reflux disease without esophagitis; I48.0 Paroxysmal atrial fibrillation; I25.10 Atherosclerotic heart disease of native coronary artery without angina pectoris; G47.33 Obstructive sleep apnea (adult) (pediatric); E78.2 Mixed hyperlipidemia; I50.82 Biventricular heart failure; I27.20 Pulmonary hypertension, unspecified; Z79.01 Long term (current) use of anticoagulants; K59.00 Constipation, unspecified; Z79.4 Long term (current) use of insulin; I11.0 Hypertensive heart disease with heart failure; C44.229 Squamous cell carcinoma of skin of left ear and external auricular canal
CPT/HCPCS: 11042 ×2; 36415; 71045; 72129; 72132; 74177; 80048; 80053; 80061; 80076; 80202; 82009; 82550; 82962; 83036; 83605; 84439; 84443; 84484; 85007; 85025; 85610; 85651; 86140; 87040; 87070; 87075; 87205; 88304; 92960; 93005; 93306; 93312; 99285; J0131; J0282; J2405; J2543; J3370; J7060; Q9967

== ENCOUNTER → 2023-01-20 14:20 | Outpatient (CLI) | payer MEDICARE, SELFPAY | PROVIDERS: PCP Nurse Practitioner Family; Visit Provider Nurse Practitioner Family | DX: I48.91 Unspecified atrial fibrillation (principal) | CPT/HCPCS: 93225 ==

== ENCOUNTER 2023-01-21 00:18 | Emergency (ER) | payer MEDICARE, SELFPAY ==
[2023-01-21 00:20] VITALS: BP 119/80; PULSE 80; RESP 18; TEMP 36.6; O2SAT 97; BMI 38.1
--- NOTE | 2023-01-21 00:24 | HMH.EDGENADL ---
Discharge Plan Disposition Patient Disposition: Home, Self-Care Prescriptions Prescriptions: No Action omeprazole 20 mg capsule,delayed release(DR/EC) 20 mg PO DAILY losartan-hydrochlorothiazide 100-25 mg tablet 1 tab PO DAILY amiodarone 200 mg tablet 400 mg PO BID 30 Days Qty: 120 0RF clopidogrel 75 MG tablet 75 mg PO DAILY Eliquis 5 mg tablet 5 mg PO BID Patient Comments: TAKE 1 TABLET BY MOUTH TWICE DAILY Novolin 70/30 U-100 Insulin 100 unit/mL (70-30) suspension 40 unit SQ HS Novolin 70/30 U-100 Insulin 100 unit/mL (70-30) suspension 80 unit SQ DAILY aspirin 81 mg Tablet,Delayed Release (Dr/Ec) 81 mg PO DAILY Qty: 30 0RF spironolactone 25 mg Tablet 50 mg PO DAILY Qty: 30 0RF metoprolol succinate 25 mg Tablet Extended Release 24 Hr 12.5 mg PO DAILY Qty: 30 0RF doxycycline hyclate 100 mg capsule 100 mg PO BID Qty: 20 0RF Referrals Follow up/Referrals: Rose Villegas APRN [Primary Care Provider] - See instructions Activity Restrictions/Add. Instructions Additional Instructions/Restrictions: Please follow-up with your primary care provider. Please return to the emergency department if you develop any new or worsening symptoms or become concerned for your health. Clinical Impressions Clinical Impression: Bleeding from wound Instructions Patient Instructions: DI for Laceration Repair Discharge ED Provider: Justin Keita General Adult HPI General Chief complaint: Wound/Laceration Stated complaint: Wound on lower back bleeding through bandage Time Seen by Provider: 01/21/23 00:23 History of Present Illness HPI narrative: 67-year-old male, on blood thinner for A-fib, recently admitted for operative debridement of wounds on the scalp and back, presents with persistent bleeding from back wound. They have been doing dressing changes at home and noted that the dressings were soaking through every 30 minutes. Family member who is performing the dressing changes notes a small area of bleeding, it did not resolve even with 30 minutes of direct pressure. No other reported symptoms. Related Data Home Medications Medication Instructions Recorded Confirmed omeprazole 20 mg capsule,delayed 20 mg PO DAILY Reflux/Acid reflux 10/12/19 01/20/23 release clopidogrel 75 mg tablet 75 mg PO DAILY Heart disease 10/24/19 01/20/23 losartan 100 1 tab PO DAILY 07/25/20 01/20/23 mg-hydrochlorothiazide 25 mg tablet apixaban 5 mg tablet (Eliquis) 5 mg PO BID Blood Thinner 01/11/23 01/20/23 insulin human U-100 NPH-regulr 40 unit SQ HS DM 01/11/23 01/20/23 70-30 mix 100 unit/mL subcutaneous susp (Novolin 70/30 U-100 Insulin) insulin human U-100 NPH-regulr 80 unit SQ DAILY DM 01/11/23 01/20/23 70-30 mix 100 unit/mL subcutaneous susp (Novolin 70/30 U-100 Insulin) Previous Rx's Medication Instructions Recorded aspirin 81 mg tablet,delayed 81 mg PO DAILY #30 tabs 01/13/23 release doxycycline hyclate 100 mg capsule 100 mg PO BID #20 caps 01/13/23 metoprolol succinate 25 mg 12.5 mg PO DAILY #30 tabs 01/13/23 tablet,extended release 24 hr spironolactone 25 mg tablet 50 mg PO DAILY #30 tabs 01/13/23 amiodarone 200 mg tablet 400 mg PO BID 30 days #120 tabs 01/20/23 Allergies Allergy/AdvReac Type Severity Reaction Status Date / Time codeine Allergy Unknown Agitated Verified 01/20/23 13:14 [facility] Disclaimer: The information contained in this section may have been updated after the patient was seen, as this information can be updated by other users. Medical History (Updated 01/21/23 @ 00:46 by Justin Keita MD) Atrial fibrillation with RVR Biventricular congestive heart failure CAD (coronary artery disease) DM2 (diabetes mellitus, type 2) Dyspnea Family history of heart disease GERD (gastroesophageal reflux disease) HLD (hyperlipidemia) HTN (hypertension) GÓMEZ (obstructive sleep apnea) PAF (paroxysmal atrial fibrillation
--- NOTE | 2023-01-21 00:36 | PC.NURSE ---
Provider at bedside with laceration tray for wound assessment and possible suture.
--- NOTE | 2023-01-21 00:49 | PC.NURSE ---
Packed wound with sterile 4x4 gauze and covered with tegaderm. Family to redress with home supplies.
[2023-01-21 00:56] VITALS: BP 119/80; PULSE 93; RESP 18; TEMP 36.6; O2SAT 97
--- NOTE | 2023-01-24 15:49 | PC.NURSE ---
blood result, staphyolococcus aureus abnormal, pt taking tetracycline, MD Perez states this antibiotic is appropriate, pt fu with on the 27, per chart pt continuing with outpt plan. No further action
== END 2023-01-21 00:57 | disposition home or self-care (01) ==
PROVIDERS: Emergency Provider Emergency Medicine; PCP Nurse Practitioner Family
DX: L76.22 Postprocedural hemorrhage of skin and subcutaneous tissue following other procedure (principal); I48.0 Paroxysmal atrial fibrillation; I11.0 Hypertensive heart disease with heart failure; I50.82 Biventricular heart failure; I25.10 Atherosclerotic heart disease of native coronary artery without angina pectoris; E11.9 Type 2 diabetes mellitus without complications; K21.9 Gastro-esophageal reflux disease without esophagitis; E78.5 Hyperlipidemia, unspecified; I27.20 Pulmonary hypertension, unspecified; G47.33 Obstructive sleep apnea (adult) (pediatric); Z79.01 Long term (current) use of anticoagulants; Z79.4 Long term (current) use of insulin
CPT/HCPCS: 99282

== ENCOUNTER → 2023-02-23 09:08 | Outpatient (CLI) | payer MEDICARE, SELFPAY ==
[2023-02-23 09:35] LABS: INR 1.08 (0.9-1.1); Prothrombin Time 11.6 seconds (10.1-12.5)
[2023-02-23 09:48] LABS: Blood Urea Nitrogen 28 mg/dl (9-20); Estimated Glomerular Filt Rate 60 ml/min (>60); GFR (African American) 72 ML/MIN (>60)
== END ==
PROVIDERS: Internal Medicine; Physician Assistant; PCP Nurse Practitioner Family; Visit Provider Physician Assistant
DX: I25.10 Atherosclerotic heart disease of native coronary artery without angina pectoris; I11.9 Hypertensive heart disease without heart failure
CPT/HCPCS: 36415; 82565; 84520; 85610

== ENCOUNTER → 2023-03-03 12:28 | Outpatient (CLI) | payer MEDICARE, SELFPAY ==
--- NOTE | 2023-03-03 12:40 | CT_ITS ---
FINAL REPORT TECHNIQUE: Axial images were obtained from the lung apex to the mid abdomen by computed tomography. Coronal and sagittal reformatted images were obtained. This study was performed with techniques to keep radiation doses as low as reasonably achievable, (ALARA). Individualized dose reduction techniques using automated exposure control or adjustment of mA and/or kV according to the patient's size were employed. CLINICAL HISTORY: Z79.899 - Other ocean transportation intermediary (current) drug therapy FINDINGS: Th none ere is no axillary adenopathy. There are small mediastinal nonspecific nodes present, but no adenopathy. Heart size is normal. There is no evidence of bronchiectasis, emphysema, or interstitial lung disease. There is no pericardial or pleural effusion. Limited images of the upper abdomen are unremarkable. There are multiple bilateral less than 5 mm in size scattered nodules, some calcified, others nonspecific. IMPRESSION: Multiple small nodules as described above, less than 5 mm in size, recommend 6-month follow-up chest CT for further evaluation. Reviewed, Interpreted and Dictated by Ej Baum III, MD Transcribed by Emily Nolan Authenticated and . [facility]
== END ==
LOC: RAD 12:28
PROVIDERS: PCP Nurse Practitioner Family; Visit Provider Physician Assistant
DX: I48.0 Paroxysmal atrial fibrillation (principal); Z79.899 Other long term (current) drug therapy
CPT/HCPCS: 71250

== ENCOUNTER 2023-05-10 14:38 | Outpatient (POV) | payer MEDICARE, SELFPAY | END 2023-05-10 23:59 | disposition home or self-care (01) | LOC: SC 14:39 | PROVIDERS: PCP Nurse Practitioner Family; Visit Provider Dermatology | DX: Z00.00 Encounter for general adult medical examination without abnormal findings (principal) ==

== ENCOUNTER 2023-08-16 11:21 | Outpatient (POV) | payer MEDICARE, SELFPAY | END 2023-08-16 23:59 | disposition home or self-care (01) | LOC: SC 11:22 | PROVIDERS: PCP Nurse Practitioner Family; Visit Provider Dermatology | DX: Z00.00 Encounter for general adult medical examination without abnormal findings (principal) ==

== ENCOUNTER 2023-08-17 11:15 | Outpatient (CLI) | payer MEDICARE, SELFPAY ==
--- NOTE | 2023-08-17 11:16 | NM_ITS ---
APPROVED REPORT Exam: Nuclear Stress Test Indication: chest pain..soa..palpitations..fatigue Patient Location: Outpatient Stress Tech: Ramya Meredith MS Tech:TESS Monteiro RT (R)(N)(M) Ht: 5 ft 10 in Wt: 280 lbs HR: 68 bpm BP: 137/76 mmHg BSA: 2.41 m2 Rhythm: Atrial Fibrillation TID: 1.15 BMI: 40.1 History: chest pain..soa..palpitations..fatigue Procedure: Patient received 0.4 mg of intravenous Lexiscan, resting heart rate 68 bpm, resting blood pressure 137/76 mmHg, with Lexiscan maximum heart rate achieved was 92 bpm which is 85 % of the maximum predicted heart rate and blood pressure was 122/61 mmHg. With Lexiscan, patient denied any complaint of chest pain. Cardiac Stress and Resting SPECT Images: Cardiac Stress and Resting SPECT images were obtained using technetium 99m Myoview 32.1 mCi stress and 10.70 mCi at rest. Resting and stress imaging in supine and prone positions demonstrate a medium-sized, moderate, partially reversible perfusion defect in the mid to distal anterior LV wall and the LV apex. Gated imaging demonstrates low-normal global LV systolic function. There is mild hypokinesis of the mid to distal anterior LV wall and the LV apex. LVEF is calculated at 51%. Conclusion: Medium-sized, moderate, partially reversible perfusion defect in the mid to distal anterior LV wall and the LV apex. Findings are suggestive of partial reversible ischemia. Gated imaging demonstrates low-normal global LV systolic function. There is mild hypokinesis of the mid to distal anterior LV wall and the LV apex. LVEF is calculated at 51%. Electronically signed by : Siobhan Patino MD 08/17/2023 20:57:01
[2023-08-17] MEDS: REGADENOSON 0.4MG/5ML SYRINGE 0.400000000000000022 MG IV (11:30)
[2023-08-17] MEDS: SODIUM CHLORIDE 0.9% 10ML SYR (RAD ONLY) 10 ML IV ×2 (13:30→13:58)
[2023-08-17] MEDS: ISOTOPE MYOVIEW (PER STUDY) 1 DOSE IV (13:57)
--- NOTE | 2023-08-17 14:20 | CA_ITS ---
APPROVED REPORT Exam: Pharmacologic Technologist: Ramya Meredith Ht: 5 ft 10 in Wt: 279 lbs BSA: 2.40 m2 HR: 68 bpm BP: 137/76 mmHg Rhythm: Atrial Fibrillation Indications: Chest pain, Abnormal EKG Medical History Medications: Omeprazole,,,,, SyMBICORT,,,,, NovOLIN,,,,, Losartan-HCTZ,,,,, Apixaban,,,,, Metoproll succinate ER,,,,, Stress Test Details Test: LEXISCAN HR Resting HR: 76 bpm Max Heart Rate (APMHR): 150 bpm Max HR Achieved: 99 bpm Target HR (85% APMHR): 128 bpm % of APMHR: 66 Recovery HR: 81 bpm BP Resting BP: 137.0/76.0 mmHg Max BP: 142.0/66.0 mmHg Recovery BP: 142.0/66.0 mmHg ECG Resting ECG: Atrial fibrillation, nonspecific ST-T abnormalities. Stress ECG: No significant ST changes Arrhythmia: None Clinical Exercise duration: 04:00 min Highest Stage Achieved: Stress ECG Conclusion Symptoms: Shortness of air. No chest pain. Arrhythmias/Ectopy: Atrial fibrillation throughout. ST-T Changes: No significant ST changes. Conclusion: Unremarkable Lexiscan stress. Myoview images reported separately. Test Summary REST . . . . . . . Resting REST 03:51 . . 76 . 137/ 76 . . Stage 1 . . . . . . . Myoview Injected Stage 1 01:00 . . 86 . . . . Stage 2 01:00 . . 87 . . . . Stage 3 01:00 . . 81 . 122/ 61 . . Stage 4 01:00 . . 80 . 125/ 64 . Stop exercise at 04:00 RECOVERY 01:00 . . 80 . 124/ 69 . . RECOVERY 02:00 . . 85 . 124/ 69 . . RECOVERY 03:00 . . 79 . 124/ 69 . . RECOVERY 03:26 . . 79 . 142/ 66 . . Electronically signed by : Siobhan Patino MD 08/17/2023 15:11:25
== END 2023-08-17 23:59 | disposition home or self-care (01) ==
LOC: RAD 11:16
PROVIDERS: PCP Nurse Practitioner; Visit Provider Nurse Practitioner
DX: I25.10 Atherosclerotic heart disease of native coronary artery without angina pectoris (principal); R07.9 Chest pain, unspecified; R94.31 Abnormal electrocardiogram [ECG] [EKG]
CPT/HCPCS: 78452; 93017; 93018; A9502; J2785

== ENCOUNTER 2023-09-06 07:36 | Day surgery (SDC) | payer MEDICARE, SELFPAY ==
[2023-09-06] VITALS (16 sets, daily range): BP systolic 112–181; BP diastolic 63–101; PULSE 65–98; RESP 16–18; TEMP 36.6–36.9; O2SAT 94–99; BMI 39.7
--- NOTE | 2023-09-06 07:08 | IR_ITS ---
APPROVED REPORT Patient Location: Outpatient [place] Feeder: TESS Mandujano RT (R) PROCEDURES Left heart catheterization Left ventriculogram Selective coronary angiogram Drug-eluting stent deployment to the proximal mid and distal chronically occluded LAD Drug-eluting stent deployment to the ramus intermedius Drug-eluting stent deployment to the circumflex arteries first obtuse marginal artery INDICATION Coronary artery disease, Angina pectoris, Abnormal Myoview, Chronically occluded proximal LAD, Informed consent was obtained prior to the procedure. COMPLICATIONS NONE Estimated Blood Loss: LESS THAN 10 ML TECHNIQUE One percent lidocaine used to anesthetize the right anterior aspect of the wrist. The right radial artery was accessed via the Seldinger technique. A 6 [place] sheath was placed in the right radial artery. 2.5 mg of Verapamil, 800 mcg of nitroglycerin, 1mg Lidocaine and 5000 U Heparin were given through the arterial sheath. The papa catheter was also used to perform left heart catheterization, left ventriculogram and selective coronary angiogram. At the end of the diagnostic angiogram therapeutic heparin was administered giving a therapeutic ACT and the guide catheter was placed in left main artery followed by a Choice PT extra-support wire placed into the proximal LAD. A guide liner was advanced for additional support. A 2 mm x 12 mm compliant balloon was advanced over the wire and also given additional support in order for the Choice PT extra-support wire to push through the chronic occlusion. After several attempts and manipulation the wire eventually passed through the chronic occlusion and passed into the LAD. The 2 mm balloon was advanced and inflated at 14 carlos which restored antegrade flow down the LAD. A 3.5 x 18 mm [place] frontier stent was placed in the proximal to mid LAD and deployed initially at 14 carlos. 2.5 x 38 mm [place] frontier stent was placed distal to the for stent yet still overlapping and deployed at 14 carlos. An additional 2.25 x 38 mm [place] frontier stent was placed distal to the 2.5 mm stent yet still overlapping and deployed at 16 carlos. The balloon was brought back and deployed at 20 carlos to mesh the 2 stents. A 3.5 x 12 mm noncompliant balloon was deployed at 24 carlos in the proximal portion of the 3.5 mm stent and then advanced through the midportion and distal portion of the stent and at the mesh site. A 2.5 x 12 mm noncompliant balloon was then placed in the proximal portion of the 2.25 mm stent at a calcified area and deployed at 24 and then 26 carlos. The balloon was brought back multiple times and deployed at 24 and 26 carlos throughout the mid LAD and 2.5 mm stent. NUBIA 0 flow was present at the beginning the procedure with NUBIA-3 flow at the end of the procedure. 800 mcg of intracoronary nitroglycerin was administered. The wire was then pulled back and placed into the ramus intermedius where a 2.5 x 30 mm [place] frontier stent was deployed at 16 carlos reducing the stenosis. A 2.75 mm x 12 mm noncompliant balloon was placed proximally and deployed at 20 carlos. The wire was pulled back and placed into the first obtuse marginal artery where a 3 mm x 12 mm [place] frontier stent was deployed at 20 carlos reducing the severe stenosis to 0%. Repeat angiography demonstrated the ostium of the ramus intermedius still had a stenosis therefore the wire was placed back into the area and a 2.75 x 12 mm [place] frontier stent was placed in the ostial proximal segment overlapping the previously stent placed and deployed at 20 carlos. Excellent angiographic results were obtained. NUBIA-3 flow was present down the ramus intermedius and the first obtuse marginal artery before and after the procedure. At the end of procedure the apparatus was removed the sheath was removed and hemostasis was achieved using TR banding patient was transferred to the postop holding in stable condition ANGIOGRAPHIC RESULTS The left main artery Normal The left anterior descending artery Has ostial 30% stenosis and then initially proximally occluded. Following revascularization the LAD has stents in the proximal mid and distal segment all a contiguous manner and are widely patent. There are 10% narrowings in the mid and distal segment. Distal to the anastomosis the distal LAD has diffuse 50% stenoses as the LAD wraps the apex The circumflex artery Large dominant gives rise to a large ramus intermedius which has a proximal 90% stenosis. The first obtuse marginal artery is large and has a proximal 80% stenosis. Distal to the first obtuse marginal artery there is a 40% smooth stenosis in the body of the circumflex artery The right coronary artery Vestigial and has proximal 70 and 80% stenosis The HORVATH ventriculogram reveals Preserved at 55% The left ventricular end-diastolic pressure 10 to 15 mmHg IMPRESSION Critical coronary disease as described above Successful percutaneous revascularization of chronically occluded LAD with successful stenting in the proximal mid and distal segment in a contiguous manner with 3 contiguous stents Successful stenting of a severely diseased ramus intermedius severe disease reduced to 0% with 2 contiguous drug-eluting stents Successful stenting of a severely diseased large first obtuse marginal artery severe disease reduced to 0% with 1 drug-eluting stent PLAN 1. Continue Plavix Eliquis and add aspirin 81 mg daily for 30 days. After 30 days discontinue aspirin 2. LDL less than 55 to be achieved with high intensity statin 3. Avoidance of tobacco products 4. Risk factor modification 5. Cardiac rehabilitation Electronically signed by : Jaiden Nunez MD 09/06/2023 10:29:34
[2023-09-06 08:31] LABS: Basophils # 0.1 K/mm3 (0-0.2); Basophils % 0.7 % (0.1-2.0); Eosinophils # 0.5 K/mm3 (0.0-0.4); Eosinophils % 4.3 % (0.1-12.0); Hematocrit 52.6 % (42.0-52.0); Hemoglobin 16.9 g/dL (14.1-18.0); Lymphocytes # 1.2 K/mm3 (0.7-4.5); Lymphocytes % 10.6 % (10-50); Mean Corpuscular HGB Conc 32.1 g/dL (31.8-35.4); Mean Corpuscular Hemoglobin 30.9 pg (27.0-31.2); Mean Corpuscular Volume 96.2 fl (80-94); Mean Platelet Volume 8.4 fl (7.4-10.4); Monocytes # 0.9 K/mm3 (0.1-1.0); Monocytes % 7.5 % (1.7-9.3); Neutrophils # 8.8 K/mm3 (1.8-7.8); Neutrophils % 76.9 % (37.0-80.0); Platelet Count 266 K/mm3 (142-424); Red Blood Count 5.47 M/mm3 (4.60-6.20); Red Cell Distribution Width 14.6 % (11.5-17.5); White Blood Count 11.4 K/mm3 (4.8-10.8)
[2023-09-06] MEDS: 0.9 % SODIUM CHLORIDE 500 ML 25 ML IV (08:50)
[2023-09-06] MEDS: HEPARIN 1,000 UNITS/500ML NS (CATH LAB) 3000 UNIT IV (08:50)
[2023-09-06] MEDS: LIDOCAINE 1% 10ML MDV 20 ML IJ (08:50)
[2023-09-06] MEDS: diphenhydrAMINE 50MG/ML VIAL 50 MG IV (08:51)
[2023-09-06] MEDS: NITROGLYCERIN 800MCG/8ML SYR (CATH LAB) 800 MCG IA ×2 (08:51→09:37)
[2023-09-06] MEDS: HEPARIN 1,000 UNITS/ML 10ML VIAL (CATH LAB) 10000 UNIT IV ×2 (08:51→09:12)
[2023-09-06] MEDS: VERAPAMIL 2.5MG/ML 2ML VIAL 2.5 MG IV (08:51)
[2023-09-06 08:57] LABS: Chloride 98 mmol/L (98-107); Sodium 138 mmol/L (136-145)
[2023-09-06 08:58] LABS: Potassium 3.6 mmoL/L (3.5-5.1)
[2023-09-06 09:01] LABS: Anion Gap 16.6 mEq/L (5-15); Blood Urea Nitrogen 17 mg/dl (9-20); Calcium 9.6 mg/dl (8.4-10.2); Carbon Dioxide 27 mmol/L (22.0-30.0); Creatinine Clearance Estimated 94 mL/min (50-200); Estimated Glomerular Filt Rate 55 ml/min (>60); GFR (African American) 66 ML/MIN (>60); Glucose 176 mg/dl (74-100)
[2023-09-06] MEDS: MIDAZOLAM HCL 1MG/1ML 5ML VIAL 1 MG IV (09:09)
[2023-09-06] MEDS: FENTANYL 100MCG/2ML VIAL 50 MCG IV (09:10)
[2023-09-06] MEDS: ASPIRIN 325MG TABLET 325 MG PO (09:51)
[2023-09-06] MEDS: CLOPIDOGREL 75MG TAB 75 MG PO (09:51)
[2023-09-06] MEDS: IOPAMIDOL-370 (76%);100ML BOTTLE 250 ML IV (12:08)
[2023-09-06 12:11] LABS: CATHL Activated Clotting Time > 400 SEC (74-125)
== END 2023-09-06 14:11 | disposition home or self-care (01) ==
PROVIDERS: PCP Nurse Practitioner; Visit Provider Internal Medicine
DX: R94.39 Abnormal result of other cardiovascular function study (principal); Z79.899 Other long term (current) drug therapy; I25.110 Atherosclerotic heart disease of native coronary artery with unstable angina pectoris; I48.0 Paroxysmal atrial fibrillation; Z79.4 Long term (current) use of insulin; Z79.01 Long term (current) use of anticoagulants; I27.20 Pulmonary hypertension, unspecified; I11.0 Hypertensive heart disease with heart failure; I50.82 Biventricular heart failure; E78.5 Hyperlipidemia, unspecified; I48.3 Typical atrial flutter
CPT/HCPCS: 80048; 85025; 85347; 92928; 93458; 99152; 99153; C1725; C1769; C1874; C9600; J1644; J2250; J3010; Q9967

== ENCOUNTER 2023-09-08 11:23 | Outpatient (CLI) | payer MEDICARE, SELFPAY ==
[2023-09-08 12:17] LABS: Basophils # 0.1 K/mm3 (0-0.2); Basophils % 1.3 % (0.1-2.0); Eosinophils # 0.3 K/mm3 (0.0-0.4); Eosinophils % 2.5 % (0.1-12.0); Hematocrit 49.4 % (42.0-52.0); Hemoglobin 15.6 g/dL (14.1-18.0); Lymphocytes # 1.1 K/mm3 (0.7-4.5); Lymphocytes % 10.6 % (10-50); Mean Corpuscular HGB Conc 31.5 g/dL (31.8-35.4); Mean Corpuscular Hemoglobin 30.7 pg (27.0-31.2); Mean Corpuscular Volume 97.3 fl (80-94); Mean Platelet Volume 8.3 fl (7.4-10.4); Monocytes # 0.9 K/mm3 (0.1-1.0); Neutrophils # 8.2 K/mm3 (1.8-7.8); Neutrophils % 77.5 % (37.0-80.0); Platelet Count 238 K/mm3 (142-424); Red Blood Count 5.08 M/mm3 (4.60-6.20); Red Cell Distribution Width 14.6 % (11.5-17.5); White Blood Count 10.6 K/mm3 (4.8-10.8)
[2023-09-08 12:43] LABS: Anion Gap 16.7 mEq/L (5-15); Blood Urea Nitrogen 18 mg/dl (9-20); Calcium 9.3 mg/dl (8.4-10.2); Carbon Dioxide 27 mmol/L (22.0-30.0); Chloride 99 mmol/L (98-107); Estimated Glomerular Filt Rate 50 ml/min (>60); GFR (African American) 61 ML/MIN (>60); Glucose 163 mg/dl (74-100); Potassium 4.7 mmoL/L (3.5-5.1); Sodium 138 mmol/L (136-145)
[2023-09-12 20:22] LABS: D001-IgE D pteronyssinus <0.10 kU/L (Class 0); D002-IgE D farinae <0.10 kU/L (Class 0); E001-IgE Cat Dander <0.10 kU/L (Class 0); E005-IgE Dog Dander <0.10 kU/L (Class 0); E072-IgE Mouse Urine <0.10 kU/L (Class 0); G002-IgE Bermuda Grass <0.10 kU/L (Class 0); G006-IgE Timothy Grass <0.10 kU/L (Class 0); I006-IgE Cockroach, German <0.10 kU/L (Class 0); Immunoglobulin E, Total 14 IU/mL (6-495); M001-IgE Penicillium chrysogen <0.10 kU/L (Class 0); M002-IgE Cladosporium herbarum <0.10 kU/L (Class 0); M003-IgE Aspergillus fumigatus <0.10 kU/L (Class 0); M006-IgE Alternaria alternata <0.10 kU/L (Class 0); T001-IgE Maple/Box Elder <0.10 kU/L (Class 0); T003-IgE Common Silver Birch <0.10 kU/L (Class 0); T006-IgE Cedar, Mountain <0.10 kU/L (Class 0); T007-IgE Oak, White <0.10 kU/L (Class 0); T008-IgE Elm, American <0.10 kU/L (Class 0); T010-IgE Walnut <0.10 kU/L (Class 0); T011-IgE Maple Leaf Sycamore <0.10 kU/L (Class 0); T014-IgE Cottonwood <0.10 kU/L (Class 0); T015-IgE Ash, White <0.10 kU/L (Class 0); T022-IgE Pecan, Hickory <0.10 kU/L (Class 0); T070-IgE White Mulberry <0.10 kU/L (Class 0); W001-IgE Ragweed, Short <0.10 kU/L (Class 0); W011-IgE Thistle, Russian <0.10 kU/L (Class 0); W014-IgE Pigweed, Common <0.10 kU/L (Class 0); W018-IgE Sheep Sorrel <0.10 kU/L (Class 0)
== END 2023-09-08 23:59 | disposition home or self-care (01) ==
LOC: LAB 11:25
PROVIDERS: Internal Medicine Pulmonary Disease; PCP Nurse Practitioner; Visit Provider Internal Medicine
DX: J30.9 Allergic rhinitis, unspecified (principal); I25.10 Atherosclerotic heart disease of native coronary artery without angina pectoris; Z95.5 Presence of coronary angioplasty implant and graft
CPT/HCPCS: 36415; 80048; 82785; 85025; 86003

== ENCOUNTER 2023-09-22 08:48 | Outpatient (RCR) | payer MEDICARE, SELFPAY | END 2023-12-02 09:30 | disposition home or self-care (01) | LOC: PT 08:48 | PROVIDERS: Visit Provider Internal Medicine | DX: I25.10 Atherosclerotic heart disease of native coronary artery without angina pectoris (principal); Z95.5 Presence of coronary angioplasty implant and graft | CPT/HCPCS: 93798 ==

== ENCOUNTER 2023-10-11 09:09 | Outpatient (POV) | payer MEDICARE, SELFPAY | END 2023-10-11 23:59 | disposition home or self-care (01) | LOC: SC 09:10 | PROVIDERS: PCP Nurse Practitioner; Visit Provider Dermatology | DX: Z00.00 Encounter for general adult medical examination without abnormal findings (principal) ==

== ENCOUNTER 2023-11-03 12:37 | Outpatient (CLI) | payer MEDICARE, SELFPAY ==
[2023-11-03] MEDS: ALBUTEROL 0.083% 2.5 MG/3 ML NEB IH (13:47)
== END 2023-11-03 23:59 | disposition home or self-care (01) ==
LOC: RT 12:38
PROVIDERS: PCP Nurse Practitioner; Visit Provider Internal Medicine Pulmonary Disease
DX: I25.10 Atherosclerotic heart disease of native coronary artery without angina pectoris (principal); Z95.5 Presence of coronary angioplasty implant and graft
CPT/HCPCS: 94060; 94618; 94726; 94729; J7613

== ENCOUNTER 2024-01-23 09:27 | Outpatient (CLI) | payer MEDICARE, SELFPAY ==
[2024-01-23 10:11] LABS: Basophils # 0.1 K/mm3 (0-0.2); Basophils % 0.9 % (0.1-2.0); Eosinophils # 0.2 K/mm3 (0.0-0.4); Eosinophils % 2.2 % (0.1-12.0); Hematocrit 48.5 % (42.0-52.0); Hemoglobin 16.5 g/dL (14.1-18.0); Lymphocytes % 11.1 % (10-50); Mean Corpuscular Hemoglobin 31.5 pg (27.0-31.2); Mean Corpuscular Volume 92.5 fl (80-94); Mean Platelet Volume 9.2 fl (7.4-10.4); Monocytes # 0.7 K/mm3 (0.1-1.0); Monocytes % 8.1 % (1.7-9.3); Neutrophils # 6.8 K/mm3 (1.8-7.8); Neutrophils % 77.7 % (37.0-80.0); Platelet Count 238 K/mm3 (142-424); Red Blood Count 5.25 M/mm3 (4.60-6.20); Red Cell Distribution Width 14.2 % (11.5-17.5); White Blood Count 8.8 K/mm3 (4.8-10.8)
[2024-01-23 10:52] LABS: Alanine Aminotransferase 24 U/L (12-78); Albumin Level 4.1 g/dl (3.5-5.0); Alkaline Phosphatase 54 U/L (38-126); Anion Gap 12.2 mEq/L (5-15); Aspartate Amino Transferase 26 U/L (17-59); Bilirubin,Direct 0.3 mg/dl (0.0-0.4); Bilirubin,Indirect 0.6 mg/dL (0.0-0.9); Bilirubin,Total 0.9 mg/dl (0.2-1.3); Bilirubin,Unconjugated 0.7 mg/dL (0.0-1.1); Blood Urea Nitrogen 21 mg/dl (9-20); Calcium 9.1 mg/dl (8.4-10.2); Carbon Dioxide 26 mmol/L (22.0-30.0); Chloride 102 mmol/L (98-107); Chol/HDL Ratio 3.3 (1-3.5); Cholesterol 112 mg/dl (140-200); Estimated Glomerular Filt Rate 50 ml/min (>60); GFR (African American) 61 ML/MIN (>60); Glucose 317 mg/dl (74-100); HDL Cholesterol 34 mg/dl (40-60); Potassium 4.2 mmoL/L (3.5-5.1); Sodium 136 mmol/L (136-145); Total Protein,Serum 6.7 g/dl (6.3-8.2); Triglycerides 143 mg/dl (30-150); VLDL Cholesterol 29 mg/dL (0-40)
[2024-01-23 11:03] LABS: Direct LDL Cholesterol 64.76 mg/dL (100-129)
== END 2024-01-23 23:59 | disposition home or self-care (01) ==
LOC: LAB 09:28
PROVIDERS: PCP Nurse Practitioner; Visit Provider Nurse Practitioner
DX: I25.10 Atherosclerotic heart disease of native coronary artery without angina pectoris (principal); I48.20 Chronic atrial fibrillation, unspecified; R94.39 Abnormal result of other cardiovascular function study; R07.9 Chest pain, unspecified; R06.09 Other forms of dyspnea; I27.20 Pulmonary hypertension, unspecified; I10 Essential (primary) hypertension; Z82.49 Family history of ischemic heart disease and other diseases of the circulatory system; E78.2 Mixed hyperlipidemia; I48.3 Typical atrial flutter
CPT/HCPCS: 36415; 80048; 80061; 80076; 85025

== ENCOUNTER 2024-02-10 07:51 | Outpatient (CLI) | payer MEDICARE, SELFPAY ==
--- NOTE | 2024-02-10 | CA_ITS ---
APPROVED REPORT Exam: Pharmacologic Technologist: Mine Healy Ht: 5 ft 10 in Wt: 270 lbs BSA: 2.37 m2 HR: 82 bpm BP: 113/76 mmHg Rhythm: Afib, poor R wave progression Medical History Cardiac Risk Factors: HTN, Hyperlipidemia, Diabetes (non-insulin), FHX of CAD Stress Test Details HR Resting HR: 82 bpm Max Heart Rate (APMHR): 149.852750 bpm Target HR (85% APMHR): 126.746833 bpm Recovery HR: 94 bpm BP Resting BP: 113.0/76.0 mmHg Recovery BP: 147.0/82.0 mmHg ECG Resting ECG: Afib, poor R wave progression Stress ECG Conclusion During lexiscan pt experinced nausea and vomitting. Rare PVC or abberantly conducted beat. No significant ST changes. Unremarkable lexiscan stress. Electronically signed by : Siobhan Patino MD 02/13/2024 01:37:31
--- NOTE | 2024-02-10 07:52 | CA_ITS ---
APPROVED REPORT EXAM: Comprehensive 2D, Doppler, and color-flow Echocardiogram Mechanical Supervisor: Tanisha Martinez RDCS Ht: 5 ft 10 in Wt: 270lbs BSA: 2.37 BP: 138/88 mmHg Indications: CHRONIC AF,CP,CAD,HTN,DM,SOA M-Mode Dimensions RVDd 2.83 cm (0.9-2.6) LA Diam 5.07 cm (1.9-4.0) LVDd 5.56 cm (3.5-5.7) LVDs 4.26 cm (3.5-5.7) IVSd 0.90 cm (0.6-1.1) PWd 1.12 cm (0.6-1.1) EF (Teich) 46.20% FS 23.40% EDV (Teich) 151.20 mL ESV (Teich) 81.30 mL Left Ventricle The left ventricle is normal size. The left ventricular systolic function is normal. The left ventricular ejection fraction is within the normal range. There is increased LV wall thickness. There is normal LV segmental wall motion. Diastolic function is indeterminate. LVEF is 55%. Right Ventricle The right ventricle is mildly dilated. The right ventricular systolic function is normal. Atria The left atrium is mildly dilated. Right atrium is mildly dilated. The interatrial septum is not well-visualized. Aortic Valve The aortic valve is mildly thickened. There is no aortic valvular stenosis. No aortic regurgitation is present. Mitral Valve Mild mitral annular calcification. The mitral valve leaflets are mildly thickened. No evidence of mitral valve stenosis. Trace mitral regurgitation. Tricuspid Valve The tricuspid valve leaflets are thin and pliable. Trace tricuspid regurgitation. There is insufficient TR jet to estimate RVSP. Pulmonic Valve The pulmonary valve is normal in structure. Trace pulmonic regurgitation. Great Vessels The aortic root is normal in size. The IVC is not well-visualized. Pericardium There is no pericardial effusion. Other Information Study Quality: Technically Difficult Conclusion Technically difficult study due to poor acoustic windows. Normal biventricular systolic function. Mild RV dilation. Mild biatrial dilation. No significant valvular stenosis or regurgitation. Electronically signed by : Siobhan Patino MD 02/20/2024 00:50:25
--- NOTE | 2024-02-10 07:52 | NM_ITS ---
APPROVED REPORT Exam: Nuclear Stress Test Indication: cad, 7 stents, htn, diabetes, fm hx, sob, palpitations, fatigue, a-fib Patient Location: Outpatient Stress Tech: Roxanne Kyle ME Tech:Codi MahanTESS RT (R)(N)(M) Ht: 5 ft 10 in Wt: 260 lbs HR: 77 bpm BP: 113/76 mmHg BSA: 2.33 m2 TID: 1.21 BMI: 37.3 History: cad, 7 stents, htn, diabetes, fm hx, sob, palpitations, fatigue, a-fib Procedure: Patient received 0.4 mg of intravenous Lexiscan, resting heart rate 77 bpm, resting blood pressure 113/76 mmHg, with Lexiscan maximum heart rate achieved was 100 bpm which is % of the maximum predicted heart rate and blood pressure was 166/88 mmHg. With Lexiscan, patient denied any complaint of chest pain. Cardiac Stress and Resting SPECT Images: Cardiac Stress and Resting SPECT images were obtained using technetium 99m Myoview 31.4 mCi stress and 10.68 mCi at rest. Resting and stress imaging in supine and prone positions demonstrate no evidence of fixed or reversible perfusion defects. There is increase in transient ischemic dilatation ratio (TID 1.21), suggestive of possible multivessel disease or balanced ischemia. Gated imaging demonstrates normal global and regional LV systolic function. LVEF is calculated at 61%. Conclusion: No evidence of fixed or reversible perfusion defects. There is increase in transient ischemic dilatation ratio (TID 1.21), suggestive of possible multivessel disease or balanced ischemia. Gated imaging demonstrates normal global and regional LV systolic function. LVEF is calculated at 61%. Electronically signed by : Siobhan Patino MD 02/13/2024 01:17:32
[2024-02-10] MEDS: SODIUM CHLORIDE 0.9% 10ML SYR (RAD ONLY) 10 ML IV ×2 (08:10→09:45)
[2024-02-10] MEDS: REGADENOSON 0.4MG/5ML SYRINGE 0.4 MG IV (10:26)
[2024-02-10] MEDS: ISOTOPE MYOVIEW (PER STUDY) 1 DOSE IV (10:33)
== END 2024-02-10 23:59 | disposition home or self-care (01) ==
PROVIDERS: PCP Nurse Practitioner; Visit Provider Nurse Practitioner
DX: I25.10 Atherosclerotic heart disease of native coronary artery without angina pectoris (principal); R07.9 Chest pain, unspecified; R06.09 Other forms of dyspnea; I48.20 Chronic atrial fibrillation, unspecified; R94.39 Abnormal result of other cardiovascular function study; I27.20 Pulmonary hypertension, unspecified; I10 Essential (primary) hypertension; Z82.49 Family history of ischemic heart disease and other diseases of the circulatory system; E78.2 Mixed hyperlipidemia; I48.3 Typical atrial flutter
CPT/HCPCS: 78452; 93017; 93018; 93306; A9502; J2785

== ENCOUNTER 2024-02-20 09:09 | Outpatient (CLI) | payer MEDICARE, SELFPAY ==
[2024-02-20 09:52] LABS: Basophils # 0.1 K/mm3 (0-0.2); Basophils % 0.7 % (0.1-2.0); Eosinophils # 0.2 K/mm3 (0.0-0.4); Eosinophils % 2.1 % (0.1-12.0); Hematocrit 48.9 % (42.0-52.0); Hemoglobin 16.6 g/dL (14.1-18.0); Lymphocytes # 1.4 K/mm3 (0.7-4.5); Lymphocytes % 13.5 % (10-50); Mean Corpuscular Hemoglobin 31.6 pg (27.0-31.2); Mean Corpuscular Volume 92.9 fl (80-94); Mean Platelet Volume 8.8 fl (7.4-10.4); Monocytes # 0.7 K/mm3 (0.1-1.0); Monocytes % 6.8 % (1.7-9.3); Neutrophils # 7.8 K/mm3 (1.8-7.8); Neutrophils % 76.9 % (37.0-80.0); Platelet Count 224 K/mm3 (142-424); Red Blood Count 5.26 M/mm3 (4.60-6.20); Red Cell Distribution Width 13.7 % (11.5-17.5); White Blood Count 10.2 K/mm3 (4.8-10.8)
[2024-02-20 10:02] LABS: Albumin Level 4.1 g/dl (3.5-5.0)
[2024-02-20 10:03] LABS: Chloride 95 mmol/L (98-107); Potassium 4.2 mmoL/L (3.5-5.1); Sodium 135 mmol/L (136-145)
[2024-02-20 10:05] LABS: Alanine Aminotransferase 25 U/L (12-78); Anion Gap 19.2 mEq/L (5-15); Aspartate Amino Transferase 28 U/L (17-59); Bilirubin,Unconjugated 0.8 mg/dL (0.0-1.1); Blood Urea Nitrogen 26 mg/dl (9-20); Carbon Dioxide 25 mmol/L (22.0-30.0); Estimated Glomerular Filt Rate 40 ml/min (>60); GFR (African American) 48 ML/MIN (>60)
[2024-02-20 10:06] LABS: Alkaline Phosphatase 57 U/L (38-126); Bilirubin,Direct 0.1 mg/dl (0.0-0.4); Bilirubin,Indirect 0.8 mg/dL (0.0-0.9); Bilirubin,Total 0.9 mg/dl (0.2-1.3); Calcium 9.5 mg/dl (8.4-10.2); Chol/HDL Ratio 2.7 (1-3.5); Cholesterol 107 mg/dl (140-200); Glucose 379 mg/dl (74-100); HDL Cholesterol 39 mg/dl (40-60); Magnesium 1.5 mg/dl (1.6-2.3); Total Protein,Serum 6.8 g/dl (6.3-8.2); Triglycerides 169 mg/dl (30-150); VLDL Cholesterol 34 mg/dL (0-40)
[2024-02-20 10:17] LABS: Direct LDL Cholesterol 51.51 mg/dL (100-129)
[2024-02-20 10:21] LABS: Free T4 (Free Thyroxine) 1.55 ng/dl (0.78-2.19)
== END 2024-02-20 23:59 | disposition home or self-care (01) ==
LOC: LAB 09:10
PROVIDERS: PCP Family Medicine; Visit Provider Nurse Practitioner
DX: I48.20 Chronic atrial fibrillation, unspecified (principal); R07.9 Chest pain, unspecified; R06.09 Other forms of dyspnea; R91.8 Other nonspecific abnormal finding of lung field; R11.10 Vomiting, unspecified
CPT/HCPCS: 36415; 80048; 80061; 80076; 83735; 84439; 84443; 85025

== ENCOUNTER 2024-03-08 08:39 | Day surgery (SDC) | payer MEDICARE, SELFPAY ==
[2024-03-08] VITALS (13 sets, daily range): BP systolic 110–162; BP diastolic 68–95; PULSE 67–91; RESP 14–18; TEMP 36.7; O2SAT 96–100; BMI 37.4
--- NOTE | 2024-03-08 07:24 | IR_ITS ---
APPROVED REPORT Patient Location: Outpatient Inspector Watch Assembly: Armand Taylor, RT (R) PROCEDURES Selective coronary angiogram Drug-eluting stent deployment to the proximal and mid LAD in a noncontiguous manner INDICATION Abnormal Myoview, Known coronary artery disease, Angina pectoris Informed consent was obtained prior to the procedure. COMPLICATIONS None Estimated Blood Loss: Less than 10 mls TECHNIQUE One percent lidocaine used to anesthetize the right anterior aspect of the wrist. The right radial artery was accessed via the Seldinger technique. A 6 [place] sheath was placed in the right radial artery. 2.5 mg of Verapamil, 800 mcg of nitroglycerin, 1mg Lidocaine and 5000 U Heparin were given through the arterial sheath. The 6 [place] JL 3 guide catheter was used to perform selective coronary angiogram. At the end of the diagnostic angiogram therapeutic heparin was administered giving a therapeutic ACT and the guide catheter was placed in the left main artery followed by Choice PT export wire placed distally down the LAD. 3.5 x 8 mm [place] frontier stent was deployed at 24 carlos in the proximal to mid LAD reducing the stenosis to 0%. An additional 3 mm x 15 mm [place] frontier stent was placed in the mid LAD distal to the for stent and not overlapping and then deployed at 27 carlos reducing the stenosis to 0%. Excellent angiograph results were obtained with NUBIA-3 flow being present down the vessel before and after the procedure. Then the procedure the apparatus was removed the sheath was removed and hemostasis was achieved using TR banding patient was transferred to the postop putting in stable condition ANGIOGRAPHIC RESULTS The left main artery Normal The left anterior descending artery Has stents in the proximal to mid segment. Distal to the first septal beater tender is a concentric 80 to 90% stenosis followed by an additional 70% concentric stenosis in the midportion. There is an additional 30% stenosis distally The circumflex artery Is a large dominant vessel giving rise to a large ramus intermedius which has a stent in the ostial proximal segment which is widely patent with minimal in-stent restenosis. There is additional 20 to 30% stenosis in the circumflex artery The right coronary artery Was not engaged given it was known to be a vestigial vessel The HORVATH ventriculogram reveals Not performed The left ventricular end-diastolic pressure Not measured IMPRESSION Severe disease in the proximal to mid LAD as described above with successful stenting reducing severe disease to 0% with 2 noncontiguous drug-eluting stents PLAN 1. Dual antiplatelet therapy 2. Cardiac rehabilitation 3. Avoidance of tobacco products 4. Risk factor modification 5. LDL less than 55 to achieve that high intensity statin Electronically signed by : Jaiden Nunez MD 03/08/2024 15:42:17
[2024-03-08 09:28] LABS: Basophils # 0.1 K/mm3 (0-0.2); Basophils % 1.1 % (0.1-2.0); Eosinophils # 0.2 K/mm3 (0.0-0.4); Eosinophils % 2.5 % (0.1-12.0); Hematocrit 46.1 % (42.0-52.0); Hemoglobin 15.3 g/dL (14.1-18.0); Lymphocytes # 1.2 K/mm3 (0.7-4.5); Lymphocytes % 14.6 % (10-50); Mean Corpuscular HGB Conc 33.3 g/dL (31.8-35.4); Mean Corpuscular Hemoglobin 31.2 pg (27.0-31.2); Mean Corpuscular Volume 93.8 fl (80-94); Mean Platelet Volume 8.6 fl (7.4-10.4); Monocytes # 0.7 K/mm3 (0.1-1.0); Monocytes % 8.5 % (1.7-9.3); Neutrophils # 5.8 K/mm3 (1.8-7.8); Neutrophils % 73.4 % (37.0-80.0); Platelet Count 210 K/mm3 (142-424); Red Blood Count 4.91 M/mm3 (4.60-6.20); Red Cell Distribution Width 14.1 % (11.5-17.5); White Blood Count 7.9 K/mm3 (4.8-10.8)
[2024-03-08 09:35] LABS: Chloride 101 mmol/L (98-107); Potassium 4.3 mmoL/L (3.5-5.1); Sodium 130 mmol/L (136-145)
[2024-03-08 09:38] LABS: Anion Gap 10.3 mEq/L (5-15); Blood Urea Nitrogen 23 mg/dl (9-20); Calcium 8.5 mg/dl (8.4-10.2); Carbon Dioxide 23 mmol/L (22.0-30.0); Creatinine Clearance Estimated 87 mL/min (50-200); Estimated Glomerular Filt Rate 54 ml/min (>60); GFR (African American) 66 ML/MIN (>60); Glucose 334 mg/dl (74-100)
[2024-03-08] MEDS: VERAPAMIL 2.5MG/ML 2ML VIAL 2.5 MG IV (10:55)
[2024-03-08] MEDS: diphenhydrAMINE 50MG/ML VIAL 50 MG IV (10:55)
[2024-03-08] MEDS: LIDOCAINE 1% 10ML MDV 20 ML IJ (10:55)
[2024-03-08] MEDS: HEPARIN 1,000 UNITS/ML 10ML VIAL (CATH LAB) 10000 UNIT IV ×2 (10:56→11:28)
[2024-03-08] MEDS: HEPARIN 1,000 UNITS/500ML NS (CATH LAB) 3000 UNIT IV (10:57)
[2024-03-08] MEDS: 0.9 % SODIUM CHLORIDE 500 ML 25 ML IV (10:57)
[2024-03-08] MEDS: NITROGLYCERIN 800MCG/8ML SYR (CATH LAB) 800 MCG IA (10:57)
[2024-03-08] MEDS: ASPIRIN 325MG TABLET 325 MG PO (11:37)
[2024-03-08] MEDS: CLOPIDOGREL 300MG TABLET 300 MG PO (11:37)
[2024-03-08] MEDS: FENTANYL 100MCG/2ML VIAL 50 MCG IV (11:38)
[2024-03-08] MEDS: MIDAZOLAM HCL 1MG/ML 5ML VIAL 1 MG IV (11:38)
[2024-03-08] MEDS: IOPAMIDOL-370 (76%);100ML BOTTLE 60 ML IV (15:36)
[2024-03-09 07:32] LABS: CATHL Activated Clotting Time 362 SEC (74-125)
--- OUTSIDE RECORDS SUMMARY | 2024-03-13 10:01 | XMS_ITS ---
Laboratory report Created on: February 07, 2024 SULEMAN VÁSQUEZ : 1955 Sex: Male Author Name MAR RICE Organization Unknown PROBLEMS Problems List Code Description E11.65 RESULTS Laboratory Orders Date Order Code Test 2023-04-21 398315 CBC/DIFF AMBIGUO US DEFAULT 2023-04-21 [id number] COMP. METABOLIC PANEL (14) Laboratory Results Date LOINC Test Value Unit Reference Range Interpre tation 2023-04-21 6690-2 WBC 10.8 X10E3/UL 3.4-10.8 2023-04-21 789-8 RBC 4.88 X10E6/UL 4.14-5.80 2023-04-21 718-7 HEMOGLOBIN 14.6 G/DL 13.0-17.7 2023-04-21 4544-3 HEMATOCRIT 43.9 % 37.5-51.0 2023-04-21 787-2 MCV 90 FL 79-97 2023-04-21 785-6 MCH 29.9 PG 26.6-33.0 2023-04-21 786-4 MCHC 33.3 G/DL 31.5-35.7 2023-04-21 788-0 RDW 12.4 % 11.6-15.4 2023-04-21 777-3 PLATELETS 264 X10E3/UL 011-704 3230-01-25 770-8 NEUTROPHILS 72 % 2023-04-21 736-9 LYMPHS 12 % 2023-04-21 5905-5 MONOCYTES 10 % 2023-04-21 713-8 EOS 4 % 2023-04-21 706-2 BASOS 1 % 2023-04-21 751-8 NEUTROPHILS (ABSOLUTE) 7.7 X10E3/UL 1.4-7.0 H 2023-04-21 731-0 LYMPHS (ABSOLUTE) 1.3 X10E3/UL 0.7-3.1 2023-04-21 742-7 MONOCYTES(ABSOLUTE) 1.1 X10E3/UL 0.1-0.9 H 2023-04-21 711-2 EOS (ABSOLUTE) .4 X10E3/UL 0.0-0.4 2023-04-21 704-7 BASO (ABSOLUTE) .1 X10E3/UL 0.0-0.2 2023-04-21 66452-9 IMMATURE GRANULOCYTES 1 % 2023-04-21 08923-4 IMMATURE GRANS (ABS) .2 X10E3/UL 0.0-0.1 H 2023-04-21 2345-7 GLUCOSE 249 MG/DL 70-99 H 2023-04-21 3094-0 BUN 20 MG/DL 8-27 2023-04-21 2160-0 CREATININE 1.25 MG/DL 0.76-1.27 2023-04-21 03742-2 EGFR 62 ML/MIN/1.73 >59 2023-04-21 3097-3 BUN/CREATININE RATIO 16 10-24 2023-04-21 2951-2 SODIUM 138 MMOL/L 747-811 3985-01-25 2823-3 POTASSIUM 4.7 MMOL/L 3.5-5.2 2023-04-21 2075-0 CHLORIDE 101 MMOL/L 96-106 2023-04-21 2028-9 CARBON DIOXIDE, TOTAL 18 MMOL/L 20-29 L 2023-04-21 70294-0 CALCIUM 9.6 MG/DL 8.6-10.2 2023-04-21 2885-2 PROTEIN, TOTAL 7.2 G/DL 6.0-8.5 2023-04-21 1751-7 ALBUMIN 4.3 G/DL 3.9-4.9 2023-04-21 30005-7 GLOBULIN, TOTAL 2.9 G/DL 1.5-4.5 2023-04-21 1759-0 A/G RATIO 1.5 1.2-2.2 2023-04-21 1975-2 BILIRUBIN, TOTAL .3 MG/DL 0.0-1.2 2023-04-21 6768-6 ALKALINE PHOSPHATASE 47 IU/L 44-121 2023-04-21 1920-8 AST (SGOT) 19 IU/L 0-40 2023-04-21 1742-6 ALT (SGPT) 21 IU/L 0-44
--- OUTSIDE RECORDS SUMMARY | 2024-03-13 10:01 | XMS_ITS ---
Laboratory report Created on: February 21, 2024 SULEMAN VÁSQUEZ : 1955 Sex: Male Author Name PRINCESS COLIN [employer] Unknown PROBLEMS Problems List Code Description E11.65 I10 RESULTS Laboratory Orders Date Order Code Test 2022-02-26 [id number] LIPID PANEL 2022-02-26 925693 HEMOGLOBIN A1C 2022-02-26 259269 COMP. METABOLIC PANEL (14) Laboratory Results Date LOINC Test Value Unit Reference Range Interpre tation 2022-02-26 2093-3 CHOLESTEROL, TOTAL 193 MG/DL 520-687 2327-12-02 2571-8 TRIGLYCERIDES 190 MG/DL 0-149 H 2022-02-26 2085-9 HDL CHOLESTEROL 41 MG/DL >39 2022-02-26 78849-2 VLDL CHOLESTEROL DANIELLE 34 MG/DL 5-40 2022-02-26 52391-1 LDL CHOL CALC (NIH) 118 MG/DL 0-99 H 2022-02-26 4548-4 HEMOGLOBIN A1C 9.8 % 4.8-5.6 H 2022-02-26 2345-7 GLUCOSE 441 MG/DL 70-99 H 2022-02-26 3094-0 BUN 15 MG/DL 8-27 2022-02-26 2160-0 CREATININE 1.19 MG/DL 0.76-1.27 2022-02-26 14581-5 EGFR 66 ML/MIN/1.7 3 >59 2022-02-26 3097-3 BUN/CREATININE RATIO 13 10-2022-02-26 2951-2 SODIUM 137 MMOL/L 347-929 4341-12-02 2823-3 POTASSIUM 4 MMOL/L 3.5-5.2 2022-02-26 2075-0 CHLORIDE 92 MMOL/L 96-106 L 2022-02-26 2028-9 CARBON DIOXIDE, TOTAL 24 MMOL/L 20-29 2022-02-26 76302-3 CALCIUM 9.8 MG/DL 8.6-10.2 2022-02-26 2885-2 PROTEIN, TOTAL 7.6 G/DL 6.0-8.5 2022-02-26 1751-7 ALBUMIN 4.5 G/DL 3.8-4.8 2022-02-26 66214-3 GLOBULIN, TOTAL 3.1 G/DL 1.5-4.5 2022-02-26 1759-0 A/G RATIO 1.5 1.2-2.2 2022-02-26 1975-2 BILIRUBIN, TOTAL .8 MG/DL 0.0-1.2 2022-02-26 6768-6 ALKALINE PHOSPHATASE 85 IU/L 44-121 2022-02-26 1920-8 AST (SGOT) 14 IU/L 0-40 2022-02-26 1742-6 ALT (SGPT) 15 IU/L 0-44
--- OUTSIDE RECORDS SUMMARY | 2024-03-13 10:01 | XMS_ITS ---
Laboratory report Created on: February 06, 2024 SULEMAN VÁSQUEZ : 1955 Sex: Male Author Organization Unknown PROBLEMS Problems List Code Description RESULTS Laboratory Orders Date Order Code Test 2023-01-11 [id number] ANAEROBIC CULTUR E+GRAM STAIN Laboratory Results Date LOINC Test Value Unit Reference Range Interpre tation 2023-01-11 10828-7 ANAEROBIC CULTURE FINAL 2023-01-11 6463-4 RESULT 1 [id number] 2023-01-11 664-3 GRAM STAIN RESULT FINAL 2023-01-11 RESULT 1 WCMA 2023-01-11 RESULT 2 PCMA
--- OUTSIDE RECORDS SUMMARY | 2024-03-13 10:01 | XMS_ITS ---
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
--- OUTSIDE RECORDS SUMMARY | 2024-03-13 10:01 | XMS_ITS ---
Laboratory report Created on: February 06, 2024 SULEMAN VÁSQUEZ : 1955 Sex: Male Author Organization Unknown PROBLEMS Problems List Code Description RESULTS Laboratory Orders Date Order Code Test 2023-01-11 [id number] ANAEROBIC CULTUR E+GRAM STAIN Laboratory Results Date LOINC Test Value Unit Reference Range Interpre tation 2023-01-11 43725-7 ANAEROBIC CULTURE FINAL 2023-01-11 6463-4 RESULT 1 [id number] 2023-01-11 664-3 GRAM STAIN RESULT FINAL 2023-01-11 RESULT 1 NWBC 2023-01-11 RESULT 2 NOS
--- OUTSIDE RECORDS SUMMARY | 2024-03-13 10:01 | XMS_ITS ---
Author Organization Unknown [facility]IES [facility] ADVERSE REACTIONS No information ASSESSMENT No information CHIEF COMPLAINT No information Vital Signs Bpsitting Date Temperature Heartrate Weight Height Spo2 Bmi Fiel dcount Timerecorded 102/58 2023 00:00: 00 97.8 68 273,0 5,10 98 39.1 7 7 08:30 120/60 2023 00:00: 00 98.6 68 272,0 5,10 95 39.0 2 7 09:00 null 2023 00:00: 00 null null 271,0 5,10 null 38.8 8 3 09:30 160/100 2023 00:00: 00 98.0 83 280,0 5,10 93 40.1 7 7 09:45 128/88 2023 00:00: 00 97.7 85 280,0 5,10 96 40.1 7 7 09:45 129/64 2023 00:00: 00 98.6 68 290,0 5,10 98 41.6 1 7 09:30 122/62 2023 00:00: 00 98.6 71 276,0 5,10 98 39.6 7 09:30 128/60 2022 00:00: 00 98.7 78 270,0 5,10 99 38.7 4 7 08:00 OBJECTIVE DATA No information PHYSICAL EXAMINATION No information TREATMENT PLAN No information PROBLEMS No information RESULTS No information REVIEW OF SYSTEMS No information SUBJECTIVE DATA No information MEDICATIONS No information
--- OUTSIDE RECORDS SUMMARY | 2024-03-13 10:01 | XMS_ITS ---
Laboratory report Created on: January 28, 2024 SULEMAN VÁSQUEZ : 1955 Sex: Male Author Name PRINCESS COLIN [employer] Unknown PROBLEMS Problems List Code Description Z00.00 I10 Z12.5 RESULTS Laboratory Orders Date Order Code Test 2022-08-30 567868 CBC WITH DIFFERE NTIAL/PLATELET 2022-08-30 [id number] COMP. METABOLIC PANEL (14) 2022-08-30 [id number] PSA TOTAL+% FREE Laboratory Results Date LOINC Test Value Unit Reference Range Interpre tation 2022-08-30 6690-2 WBC 9.2 X10E3/UL 3.4-10.8 2022-08-30 789-8 RBC 5.48 X10E6/UL 4.14-5.80 2022-08-30 718-7 HEMOGLOBIN 17.4 G/DL 13.0-17.7 2022-08-30 4544-3 HEMATOCRIT 50.2 % 37.5-51.0 2022-08-30 787-2 MCV 92 FL 79-97 2022-08-30 785-6 MCH 31.8 PG 26.6-33.0 2022-08-30 786-4 MCHC 34.7 G/DL 31.5-35.7 2022-08-30 788-0 RDW 13 % 11.6-15.4 2022-08-30 777-3 PLATELETS 240 X10E3/UL 854-225 0437-06-05 770-8 NEUTROPHILS 74 % 2022-08-30 736-9 LYMPHS 11 % 2022-08-30 5905-5 MONOCYTES 10 % 2022-08-30 713-8 EOS 3 % 2022-08-30 706-2 BASOS 1 % 2022-08-30 751-8 NEUTROPHILS (ABSOLUTE) 6.9 X10E3/UL 1.4-7.0 2022-08-30 731-0 LYMPHS (ABSOLUTE) 1 X10E3/UL 0.7-3.1 2022-08-30 742-7 MONOCYTES(ABSOLUTE) .9 X10E3/UL 0.1-0.9 2022-08-30 711-2 EOS (ABSOLUTE) .3 X10E3/UL 0.0-0.4 2022-08-30 704-7 BASO (ABSOLUTE) .1 X10E3/UL 0.0-0.2 2022-08-30 63941-2 IMMATURE GRANULOCYTES 1 % 2022-08-30 25052-5 IMMATURE GRANS (ABS) .1 X10E3/UL 0.0-0.1 2022-08-30 2345-7 GLUCOSE 450 MG/DL 70-99 H 2022-08-30 3094-0 BUN 8 MG/DL 8-27 2022-08-30 2160-0 CREATININE 1.02 MG/DL 0.76-1.27 2022-08-30 00186-1 EGFR 80 ML/MIN/1.73 >59 2022-08-30 3097-3 BUN/CREATININE RATIO 8 10-24 L 2022-08-30 2951-2 SODIUM 137 MMOL/L 465-488 1206-06-05 2823-3 POTASSIUM 4 MMOL/L 3.5-5.2 2022-08-30 2075-0 CHLORIDE 94 MMOL/L 96-106 L 2022-08-30 2028-9 CARBON DIOXIDE, TOTAL 17 MMOL/L 20-29 L 2022-08-30 79916-9 CALCIUM 9.4 MG/DL 8.6-10.2 2022-08-30 2885-2 PROTEIN, TOTAL 7.8 G/DL 6.0-8.5 2022-08-30 1751-7 ALBUMIN 4.5 G/DL 3.8-4.8 2022-08-30 62003-4 GLOBULIN, TOTAL 3.3 G/DL 1.5-4.5 2022-08-30 1759-0 A/G RATIO 1.4 1.2-2.2 2022-08-30 1975-2 BILIRUBIN, TOTAL .6 MG/DL 0.0-1.2 2022-08-30 6768-6 ALKALINE PHOSPHATASE 66 IU/L 44-121 2022-08-30 1920-8 AST (SGOT) 24 IU/L 0-40 2022-08-30 1742-6 ALT (SGPT) 18 IU/L 0-44 2022-08-30 2857-1 PROSTATE SPECIFI C AG .2 NG/ML 0.0-4.0 2022-08-30 52738-5 PSA, FREE .03 NG/ML N/A 2022-08-30 45278-1 % FREE PSA 15 %
--- OUTSIDE RECORDS SUMMARY | 2024-03-13 10:01 | XMS_ITS ---
Laboratory report Created on: January 26, 2024 SULEMAN VÁSQUEZ : 1955 Sex: Male Author Organization Unknown PROBLEMS Problems List Code Description RESULTS Laboratory Orders Date Order Code Test 2023-09-08 [id number] ALLERGENS W/TOTA L IGE AREA 5 Laboratory Results Date LOINC Test Value Unit Reference Range Interpre tation 2023-09-08 91774-9 IMMUNOGLOBULIN E, TOTAL 14 IU/ML 6-495 2023-09-08 6096-2 E177-NJG D PTERONYSSINUS <0.10 KU/L 2023-09-08 6095-4 X752-MCI D FARINAE <0.10 KU/L 2023-09-08 6833-8 T424-ZZW CAT DANDER <0.10 KU/L 2023-09-08 6098-8 D464-BUX DOG DANDER <0.10 KU/L 2023-09-08 6041-8 U502-YPJ BERMUDA GRASS <0.10 KU/L 2023-09-08 6265-3 V759-JAC ZULEIMA GRASS <0.10 KU/L 2023-09-08 6078-0 P385-UZB COCKROA CH, KHMER <0.10 KU/L 2023-09-08 6212-5 M221-RBE PENICIL LIUM CHRYSOGEN <0.10 KU/L 2023-09-08 6075-6 P031-QUT CLADOSP ORIUM HERBARUM <0.10 KU/L 2023-09-08 6025-1 S949-IVB ASPERGI LLUS FUMIGATUS <0.10 KU/L 2023-09-08 6020-2 N115-MIW ALTERNA AUSTIN ALTERNATA <0.10 KU/L 2023-09-08 7155-5 Y263-DLM MAPLE/B OX ELDER <0.10 KU/L 2023-09-08 90172-0 B425-WMQ COMMON SILVER BIRCH <0.10 KU/L 2023-09-08 6178-8 M750-PVV CEDAR, MOUNTAIN <0.10 KU/L 2023-09-08 6189-5 R990-XYU OAK, WHITE <0.10 KU/L 2023-09-08 6109-3 M094-NOP ELM, PUERTO RICAN <0.10 KU/L 2023-09-08 09676-4 B478-LIG WALNUT <0.10 KU/L 2023-09-08 75207-2 Z492-SEX MAPLE L EAF SYCAMORE <0.10 KU/L 2023-09-08 6090-5 W434-GUV [place] <0.10 KU/L 2023-09-08 6278-6 W170-SPU BERYL, WHITE <0.10 KU/L 2023-09-08 6209-1 F672-ECB PECAN, HICKORY <0.10 KU/L 2023-09-08 6281-0 X440-JOJ WHITE MULBERRY <0.10 KU/L 2023-09-08 6085-5 E417-KZZ RAGWEED, SHORT <0.10 KU/L 2023-09-08 6234-9 N465-HCX THISTLE , KENYAN <0.10 KU/L 2023-09-08 7604-2 Y156-DRS PIGWEED , COMMON <0.10 KU/L 2023-09-08 6244-8 W287-OBU SHEEP SORREL <0.10 KU/L 2023-09-08 6181-2 B496-DLU MOUSE URINE <0.10 KU/L
== END 2024-03-08 15:17 | disposition home or self-care (01) ==
PROVIDERS: PCP Nurse Practitioner; Visit Provider Internal Medicine
DX: I25.118 Atherosclerotic heart disease of native coronary artery with other forms of angina pectoris (principal); I77.1 Stricture of artery; I48.0 Paroxysmal atrial fibrillation; R07.9 Chest pain, unspecified; R91.8 Other nonspecific abnormal finding of lung field; E11.69 Type 2 diabetes mellitus with other specified complication; E78.2 Mixed hyperlipidemia; I10 Essential (primary) hypertension; R93.1 Abnormal findings on diagnostic imaging of heart and coronary circulation; Z95.5 Presence of coronary angioplasty implant and graft; Z79.899 Other long term (current) drug therapy
CPT/HCPCS: 80048; 85025; 85347; 92928; 99152; C1725; C1769; C1874; C9600; J1200; J1644; J2250; J3010; Q9967

== ENCOUNTER 2024-03-12 10:57 | Outpatient (CLI) | payer MEDICARE, SELFPAY ==
[2024-03-12 11:33] LABS: Basophils # 0.1 K/mm3 (0-0.2); Basophils % 0.8 % (0.1-2.0); Eosinophils # 0.2 K/mm3 (0.0-0.4); Eosinophils % 2.8 % (0.1-12.0); Hematocrit 45.7 % (42.0-52.0); Hemoglobin 15.4 g/dL (14.1-18.0); Lymphocytes % 11.8 % (10-50); Mean Corpuscular HGB Conc 33.6 g/dL (31.8-35.4); Mean Corpuscular Hemoglobin 31.4 pg (27.0-31.2); Mean Corpuscular Volume 93.4 fl (80-94); Mean Platelet Volume 8.5 fl (7.4-10.4); Monocytes # 0.8 K/mm3 (0.1-1.0); Monocytes % 9.5 % (1.7-9.3); Neutrophils # 6.6 K/mm3 (1.8-7.8); Neutrophils % 75.2 % (37.0-80.0); Platelet Count 200 K/mm3 (142-424); Red Blood Count 4.89 M/mm3 (4.60-6.20); White Blood Count 8.7 K/mm3 (4.8-10.8)
[2024-03-12 11:48] LABS: Chloride 98 mmol/L (98-107); Potassium 4.8 mmoL/L (3.5-5.1); Sodium 129 mmol/L (136-145)
[2024-03-12 11:51] LABS: Anion Gap 9.8 mEq/L (5-15); Blood Urea Nitrogen 20 mg/dl (9-20); Carbon Dioxide 26 mmol/L (22.0-30.0); Estimated Glomerular Filt Rate 54 ml/min (>60); GFR (African American) 66 ML/MIN (>60); Glucose 387 mg/dl (74-100)
== END 2024-03-12 23:59 | disposition home or self-care (01) ==
PROVIDERS: PCP Nurse Practitioner; Visit Provider Internal Medicine
DX: D64.9 Anemia, unspecified (principal)
CPT/HCPCS: 36415; 80048; 85025

== ENCOUNTER 2024-05-07 09:08 | Emergency (ER) | payer MEDICARE, SELFPAY ==
[2024-05-07] VITALS (10 sets, daily range): BP systolic 125–170; BP diastolic 69–99; PULSE 79–113; RESP 12–24; TEMP 36.9; O2SAT 92–99; BMI 35.2
--- NOTE | 2024-05-07 09:14 | ECG_ITS ---
APPROVED REPORT Exam: Resting ECG HR:106 bpm ECG Measurements Heart Rate 106 AXES QRSd 94 QRS 7 QT 307 T 153 QTc 369 Conclusion ATRIAL FIBRILLATION WITH RAPID VENTRICULAR RESPONSE ST DEVIATION AND MODERATE T-WAVE ABNORMALITY, CONSIDER LATERAL ISCHEMIA [-0.1+ mV T-WAVE IN I/aVL/V5/V6] ABNORMAL ECG No STEMI Electronically signed by : SERAFIN SNEED, 05/08/2024 06:56:23
--- NOTE | 2024-05-07 09:38 | PC.NURSE ---
Dr Perez at bedside
--- NOTE | 2024-05-07 09:40 | XR_ITS ---
FINAL REPORT CLINICAL HISTORY: Shortness of breath, hx afib COMPARISON: 01/11/2023 FINDINGS: No acute pulmonary opacity is present. There is no evidence of effusion or pneumothorax. Mediastinum is unremarkable. Cardiomegaly is noted. IMPRESSION: No acute findings or significant change. Reviewed, Interpreted and Dictated by Lorena Villalta MD Transcribed by Patsy Joshi Authenticated and [facility]
--- NOTE | 2024-05-07 09:44 | ED_ITS ---
Discharge Plan Disposition Patient Disposition: Home, Self-Care Prescriptions Prescriptions: New metoprolol succinate 50 mg tablet extended release 24 hr 50 mg PO DAILY 30 Days Qty: 30 0RF No Action budesonide-formoterol [Symbicort] 160-4.5 mcg/actuation HFA aerosol inhaler 2 puff inhalation BID 90 Days Qty: 10.2 2RF Ozempic 0.25 mg or 0.5 mg (2 mg/3 mL) pen injector 0.25 mg SQ WEEKLY Patient Comments: INJECT 0.5 MG SUBCUTANEOUSLY ONCE A WEEK pantoprazole [Protonix] 40 mg tablet,delayed release (DR/EC) 40 mg PO DAILY Qty: 30 3RF ranolazine 1,000 mg tablet extended release 12 hr 1,000 mg PO BID Qty: 60 5RF atorvastatin [Lipitor] 40 mg tablet 40 mg PO DAILY Qty: 30 5RF Eliquis 5 mg tablet 5 mg PO BID Qty: 60 5RF spironolactone 25 mg tablet 25 mg PO DAILY losartan-hydrochlorothiazide 50-12.5 mg tablet 1 tab PO DAILY Patient Comments: TAKE ONE TABLET BY MOUTH EVERY DAY clopidogrel 75 MG tablet 75 mg PO DAILY Novolin 70/30 U-100 Insulin 100 unit/mL (70-30) suspension 40 unit SQ HS Novolin 70/30 U-100 Insulin 100 unit/mL (70-30) suspension 80 unit SQ DAILY metoprolol succinate 50 mg tablet extended release 24 hr 25 mg PO DAILY amiodarone 200 mg Tablet See Rx Instructions .ROUTE .COMPLEX Rx Instructions: pt is unsure the dose Referrals Follow up/Referrals: Marlin Nelson APRN [Primary Care Provider] - See instructions Jaiden Nunez MD [Staff Physician] - See instructions Activity Restrictions/Add. Instructions Additional Instructions/Restrictions: As discussed your symptoms were most consistent with orthostatic hypotension likely with some mild dehydration in addition to some electrolyte abnormalities causing atrial fibrillation with mild rapid ventricular response which was controlled with some metoprolol in the emergency department. Please change her metoprolol dose from 25 mg once a day to 50 mg once a day, a new prescription has been sent in. Please make sure you are not taking both medications and follow-up closely with Dr. Nunez. Return with any significant worsening of your symptoms. Clinical Impressions Clinical Impression: Atrial flutter with rapid ventricular response, Orthostatic hypotension, Light headedness, Hypomagnesemia, CKD (chronic kidney disease) Print Language Print Language: Citizen Of [place] Discharge ED Provider: Lety Perez General Adult HPI General Chief complaint: Weakness Stated complaint: high sugar levels, low bp Time Seen by Provider: 05/07/24 09:32 Mode of Arrival: Wheelchair Source of Information: Patient, Spouse and Medical Record Limitations: No Limitations Description of Symptoms (Recalled from ER Triage Doc. by RN): Pt sent by PCP office d/t low BP (100/60) and low HR (50s) with elevated FSBG. Pt states he is diabetic and has not been taking his insullin d/t having persistant n/v. He reports a hx of afib and Stays in it . He denies any chest pain but does note persistant SOA. He is on ozempic currently and has lost 25# recently. History of Present Illness HPI narrative: 69-year-old male presented with multiple complaints. Has a known history of atrial fibrillation diagnosed Shayla years ago he is chronically anticoagulated on Eliquis also has a history of coronary artery disease most recently with a cath at the end of last year that had severe LAD disease that was successfully stented. Has been on dual antiplatelet therapy on top of his Eliquis since that time. States that he has been in A-fib persistently since 2022. However recently he has been having significant lightheadedness actually had 2 syncopal episodes in March that were unheralded. Denies any feelings of feeling he is in a pass out and April. Denies any chest pain is chronically short of breath which is at his baseline. No fevers or chills. Overall just feels very weak and lightheaded at the moment particular with positional changes from lying to sitting to standing. Also states she has had decreased urine output. Related Data Home Medications ?Medication ?Instructions ?Recorded ?Confirmed clopidogrel 75 mg tablet 75 mg PO DAILY Heart disease 10/24/19 05/07/24 insulin human U-100 NPH-regulr 40 unit SQ HS DM 01/11/23 05/07/24 70-30 mix 100 unit/mL subcutaneous susp (Novolin 70/30 U-100 Insulin) insulin human U-100 NPH-regulr 80 unit SQ DAILY DM 01/11/23 05/07/24 70-30 mix 100 unit/mL subcutaneous susp (Novolin 70/30 U-100 Insulin) semaglutide 0.25 mg or 0.5 mg (2 0.25 mg SQ WEEKLY 08/25/23 05/07/24 mg/3 mL) subcutaneous pen injector (Ozempic) spironolactone 25 mg tablet 25 mg PO DAILY 10/20/23 05/07/24 losartan 50 mg-hydrochlorothiazide 1 tab PO DAILY 02/20/24 05/07/24 12.5 mg tablet amiodarone 200 mg tablet See Rx Instructions .Route .COMPLEX 05/07/24 05/07/24 metoprolol succinate 50 mg 25 mg PO DAILY 05/07/24 05/07/24 tablet,extended release 24 hr Previous Rx's ?Medication ?Instructions ?Recorded budesonide-formoterol HFA 160 2 puff inhalation BID 90 days 07/07/23 mcg-4.5 mcg/actuation aerosol #10.2 grams inhaler (Symbicort) apixaban 5 mg tablet (Eliquis) 5 mg PO BID Blood Thinner #60 tabs 09/20/23 atorvastatin 40 mg tablet (Lipitor) 40 mg PO DAILY #30 tabs 09/20/23 pantoprazole 40 mg tablet,delayed 40 mg PO DAILY #30 tabs 03/15/24 release (Protonix) ranolazine 1,000 mg 1,000 mg PO BID #60 tabs 03/15/24 tablet,extended release,12 hr metoprolol succinate 50 mg 50 mg PO DAILY 30 days #30 tabs 05/07/24 tablet,extended release 24 hr Allergies Allergy/AdvReac Type Severity Reaction Status Date / Time codeine Allergy Unknown Agitated Verified 03/16/24 11:08 [facility] Disclaimer: The information contained in this section may have been updated after the patient was seen, as this information can be updated by other users. Medical History Typical angina Eosinophilia Asthma Second hand smoke exposure Dyspnea on exertion Atrial flutter Pulmonary nodules Lesion of left ear On amiodarone therapy Atrial fibrillation with RVR Pulmonary hypertension Biventricular congestive heart failure Family history of heart disease CAD (coronary artery disease) GÓMEZ (obstructive sleep apnea) PAF (paroxysmal atrial fibrillation) GERD (gastroesophageal reflux disease) DM2 (diabetes mellitus, type 2) Dyspnea HLD (hyperlipidemia) HTN (hypertension) Surgical History S/P cardiac cath History of colonoscopy History of incision and drainage Family History Other Dementia Diabetes Heart attack Social History Smoking Status: Never smoker second hand exposure: Yes alcohol intake: former substance use type: marijuana current occupational status: retired Travel in the last 8 weeks: None housing: house current occupational exposures/hazards: No caffeine: Yes Have you lived/traveled outside US in past 30 days?: No Contact w/someone who lives/traveled outside US past 30 days?: No Exposure to someone with infectious disease in past 14 days?: No Do you have a fever (greater than 100.4 F or 38 C)?: No Have you tested positive for COVID-19: No Exposed to someone with COVID-19 in past 14 days?: No Do you have a sore throat?: No Do you have a cough?: No Do you have any weakness?: Yes Do you have any diarrhea?: No Are you experiencing any unusual bleeding?: No Do you have any muscle aches/pain?: No Do you have any abdominal pain?: No Are you experiencing loss of taste or smell?: No Other Medical History Have you received the Flu Vaccine for this season: No Have you received the Pneumonia Vaccine: No ROS Obtained: Yes All systems reviewed & no additional complaints except as documented Physical Exam General General appearance: alert Respiratory Respiratory exam: Present normal lung sounds bilaterally; Absent respiratory distress Cardiovascular Cardiovascular exam: Present tachycardia and irregular rhythm Neurological Exam Neurological exam: Present alert and oriented X3 Other Other exam information: Upon standing the patient up his heart rate went from 1 10-1 30 and A-fib, blood pressure also dropped 20-30 on systolic on my personal evaluation. Medical Decision Making Medical Records Screening: Per USPSTF and CDC recommendations, given the prevalence of disease in our region, it is our hospital?s policy to screen for HIV and viral Hepatitis for all patients aged 18 and over and those with ongoing risk factors. Stefan Inquiry Pt receiving controlled substance: No Vital Signs: 05/07/24 09:09 05/07/24 09:13 05/07/24 09:30 Temperature 98.4 F Temperature Source Oral Pulse Rate 113 H 105 H Pulse Rate [Right] 109 H Respiratory Rate 20 16 Blood Pressure 170/99 H 153/86 H Blood Pressure [Right Arm] 170/90 H Blood Pressure Mean [Right Arm] 116 Blood Pressure Source [Right Arm] Automatic Cuff 02 Sat by Pulse Oximetry 99 92 L 99 Oxygen Delivery Method Room Air Room Air Room Air 05/07/24 09:31 05/07/24 10:00 05/07/24 10:30 Temperature Temperature Source Pulse Rate 113 H 88 99 H Pulse Rate [Right] Respiratory Rate 16 12 16 Blood Pressure 129/98 H 144/69 H 128/76 Blood Pressure [Right Arm] Blood Pressure Mean [Right Arm] Blood Pressure Source [Right Arm] 02 Sat by Pulse Oximetry 97 95 97 Oxygen Delivery Method Room Air Room Air Room Air 05/07/24 11:00 05/07/24 11:15 05/07/24 11:30 Temperature Temperature Source Pulse Rate 87 79 82 Pulse Rate [Right] Respiratory Rate 15 12 24 Blood Pressure 138/77 125/69 Blood Pressure [Right Arm] Blood Pressure Mean [Right Arm] Blood Pressure Source [Right Arm] 02 Sat by Pulse Oximetry 98 95 93 L Oxygen Delivery Method Room Air Room Air Room Air Lab Data Lab results reviewed: Yes I reviewed the patient's lab results. Lab Results 05/07/24 09:10: WBC 11.9 H, RBC 4.55 L, Hgb 14.3, Hct 41.7 L, MCV 91.6, MCH 31.4 H, MCHC 34.3, RDW 12.8, Plt Count 302, MPV 11.2 H, Neut % (Auto) 74.4, Lymph % (Auto) 7.9 L, [place] % (Auto) 14.1 H, Eos % (Auto) 1.9, Baso % (Auto) 0.8, Neut # (Auto) 8.8 H, Lymph # (Auto) 0.9, [place] # (Auto) 1.7 H, Eos # (Auto) 0.2, Baso # (Auto) 0.1, D-Dimer 0.57 H, Sodium 135 L, Potassium 3.8, Chloride 98, Carbon Dioxide 24, Anion Gap 16.8 H, BUN 18, Creatinine 1.30 H, Estimated Creat Clear 82, Estimated GFR 54 L, Est GFR ( Amer) 66, Glucose 261 H, Calcium 8.9, M agnesium 1.3 L, Total Bilirubin 0.8, AST 33, ALT 29, Alkaline Phosphatase 73, Troponin I < 0.01, NT-Pro-B Natriuret Pep 402 H, Total Protein 7.5, Albumin 4.1, Globulin 3.4 H, Albumin/Globulin Ratio 1.2, TSH 1.11, HCV Ab LIZBETH w/Rflx PCR Qn Negative, HIV Ag/Ab Combo Qual Negative 05/07/24 09:44: VBG pH 7.34, VBG pCO2 43.7, VBG pO2 32.2, VBG HCO3 22.9 L, VBG Total CO2 24.2, VBG O2 Saturation 57.3, VBG Base Excess -2.9 L, VBG Lactic Acid 3.8 H 05/07/24 09:10 05/07/24 09:10 Orders (Tests/Meds): ED MEDICATIONS Discontinued Medications Generic Name Dose Route Start Last Admin Trade Name Freq PRN Reason Stop Dose Admin Sodium Chloride 500 mls @ 999 mls/hr 05/07/24 09:43 05/07/24 09:48 Sod Chlor 0.9% 1000ml Bag IV 05/07/24 10:13 999 mls/hr .Q31M ONE Administration Magnesium Sulfate 2 gm in 50 mls @ 50 mls/hr 05/07/24 10:55 05/07/24 11:03 Magnesium Sulfate 2gm/50ml Premix IV 05/07/24 11:54 50 mls/hr ONCE ONE Administration Metoprolol Tartrate 5 mg 05/07/24 09:45 05/07/24 09:48 Metoprolol Tartrate 5mg/5ml Vial IV 05/07/24 09:46 5 mg ONCE ONE Administration Potassium Chloride 40 meq 05/07/24 10:55 05/07/24 11:03 Potassium Chloride 20meq Tab PO 05/07/24 10:56 40 meq ONCE ONE Administration ORDERS Category Date Time Status CXR --portable [XR chest portable] Stat Exams 05/07/24 09:40 Completed Complete Blood Count Auto Diff Stat Lab 05/07/24 09:10 Completed Comprehensive Metabolic Panel Stat Lab 05/07/24 09:10 Completed D-Dimer Stat Lab 05/07/24 09:10 Completed HIV Combo Stat Lab 05/07/24 09:10 Completed Hepatitis C Ab Qual. W/ RFX Stat Lab 05/07/24 09:10 Completed Magnesium Stat Lab 05/07/24 09:10 Completed NT Pro Brain Natriuretic Pep. Stat Lab 05/07/24 09:10 Completed TSH [Thyroid Stimulating Hormone] Stat Lab 05/07/24 09:10 Completed Troponin I Q3H Lab 05/07/24 09:10 Completed Troponin I Q3H Lab 05/07/24 12:45 Ordered Venous Blood Gas Stat RT 05/07/24 09:44 Completed Medical Decision Narrative: 69-year-old with history and physical he is in A-fib RVR/atrial flutter with RVR. He is already on a beta-abby most recent echo showed a normal LVEF will administer IV metoprolol as this could be contributory to the patient's symptoms. Additionally he is orthostatic and may be volume contracted we will give him some IV fluids to see if he responds to this. Other metabolic abnormalities or renal insufficiency or other processes that may be ongoing we will check basic blood work to look into this further. No significant ischemic symptoms. I doubt that this is a type I ND. Chest x-ray performed I personally interpreted which shows no evidence of an acute cardiopulmonary emergency. Labs demonstrate CKD with a creatinine of 1.3 which is at his baseline. Magnesium was 1.3 and potassium was less than 4 these were replaced to try to get to 2 and 4 to help stabilize his arrhythmia. After IV fluids a dose of IV metoprolol patient remained stable with heart rates in the 80s and 90s the entire time in the ED he is feeling somewhat better. Serial neurologic and cardiopulmonary exams are normal. No alternative explanation. No malignant arrhythmia on monitor while in the ED. Patient's been advised to increase his metoprolol dose to 50 mg daily. He has been vies to also follow-up closely with Dr. Nunez. At this point with no ongoing RVR very mild RVR to begin with and close outpatient follow-up I feel that it is appropriate for him to be managed outpatient. Patient and family are agreeable to this plan was discharged in stable condition. Critical Care Critical Care Time Critical Care Time: Yes Attestation: On 05/07/24, the high probability of a clinically significant, sudden or life threatening deterioration of the following system(s) required my full and direct attention, intervention and personal management. The time I documented below is in addition to time spent performing reported procedures but includes the following listed in this critical care notation. Total Time Total Critical Care Time: 35
[2024-05-07 09:46] LABS: VBG Base Excess -2.9 mmol/L (-2.4-2.3); VBG HCO3 22.9 mmol/L (23-30); VBG Oxygen Saturation 57.3 % (50-70); VBG PCO2 43.7 mmol/L (35-51); VBG PH 7.34 mmol/L (7.31-7.41); VBG PO2 32.2 mmol/L (28-40); VBG Total CO2 24.2 mmol/L (23-27)
[2024-05-07 09:46] LABS: Albumin Level 4.1 g/dl (3.5-5.0); Chloride 98 mmol/L (98-107); Potassium 3.8 mmoL/L (3.5-5.1); Sodium 135 mmol/L (136-145)
[2024-05-07 09:47] LABS: Lactate Venous 3.8 mmol/L (0.4-2.0)
[2024-05-07] MEDS: 0.9 % SODIUM CHLORIDE 1000ML 500 ML 999 ML IV (09:48)
[2024-05-07] MEDS: METOPROLOL TARTRATE 5MG/5ML VIAL 5 MG IV (09:48)
[2024-05-07 09:49] LABS: Alanine Aminotransferase 29 U/L (12-78); Albumin/Globulin Ratio 1.2 (1.1-1.8); Alkaline Phosphatase 73 U/L (38-126); Anion Gap 16.8 mEq/L (5-15); Aspartate Amino Transferase 33 U/L (17-59); Basophils # 0.1 K/mm3 (0-0.2); Basophils % 0.8 % (0.1-2.0); Bilirubin,Total 0.8 mg/dl (0.2-1.3); Blood Urea Nitrogen 18 mg/dl (9-20); Carbon Dioxide 24 mmol/L (22.0-30.0); Creatinine Clearance Estimated 82 mL/min (50-200); Eosinophils # 0.2 K/mm3 (0.0-0.4); Eosinophils % 1.9 % (0.1-12.0); Estimated Glomerular Filt Rate 54 ml/min (>60); GFR (African American) 66 ML/MIN (>60); Globulin 3.4 g/dL (1.3-3.2); Hematocrit 41.7 % (42.0-52.0); Hemoglobin 14.3 g/dL (14.1-18.0); Lymphocytes # 0.9 K/mm3 (0.7-4.5); Lymphocytes % 7.9 % (10-50); Mean Corpuscular HGB Conc 34.3 g/dL (31.8-35.4); Mean Corpuscular Hemoglobin 31.4 pg (27.0-31.2); Mean Corpuscular Volume 91.6 fl (80-94); Mean Platelet Volume 11.2 fl (7.4-10.4); Monocytes # 1.7 K/mm3 (0.1-1.0); Monocytes % 14.1 % (1.7-9.3); Neutrophils # 8.8 K/mm3 (1.8-7.8); Neutrophils % 74.4 % (37.0-80.0); Platelet Count 302 K/mm3 (142-424); Red Blood Count 4.55 M/mm3 (4.60-6.20); Red Cell Distribution Width 12.8 % (11.5-17.5); Total Protein,Serum 7.5 g/dl (6.3-8.2); White Blood Count 11.9 K/mm3 (4.8-10.8)
--- NOTE | 2024-05-07 09:49 | PC.NURSE ---
portable rad at BS
[2024-05-07 09:50] LABS: Calcium 8.9 mg/dl (8.4-10.2); Glucose 261 mg/dl (74-100)
[2024-05-07 09:57] LABS: Magnesium 1.3 mg/dl (1.6-2.3)
[2024-05-07 09:59] LABS: D-Dimer 0.57 ug/mL (0.0-0.5); NT Pro Brain Natriuretic Pep. 402 pg/mL (0-125)
[2024-05-07 10:03] LABS: Troponin I < 0.01 ng/ml (0.00-0.034)
[2024-05-07 10:31] LABS: Thyroid Stimulating Hormone 1.11 uIU/mL (0.465-4.68)
[2024-05-07 10:39] LABS: HIV Combo NEGATIVE (Negative)
[2024-05-07 10:48] LABS: Hepatitis C Ab Qual. W/ RFX NEGATIVE (Negative)
--- NOTE | 2024-05-07 10:49 | PC.NURSE ---
ROUNDED ON PT, NO NEEDS AT THIS TIME. CALL LIGHT WITHIN REACH. FAMILY AT BEDSIDE
--- NOTE | 2024-05-07 10:58 | PC.NURSE ---
pt reports that he feels the same, no change at this time, aware
[2024-05-07] MEDS: MAGNESIUM SULFATE IN WATER 2 GM/50 ML PIGGYBACK IV (11:03)
[2024-05-07] MEDS: POTASSIUM CHLORIDE 20MEQ TAB 40 MEQ PO (11:03)
--- NOTE | 2024-05-07 11:04 | PC.NURSE ---
ROUNDED ON THE PT. THE PT VOICES THAT HE DOES NOT NEED ANYTHING AT THIS TIME. CALL LIGHT IS WITHIN REACH OF THE PT.
== END 2024-05-07 12:14 | disposition home or self-care (01) ==
PROVIDERS: Emergency Provider Student in an Organized Health Care Education/Training Program; PCP Nurse Practitioner
DX: N18.9 Chronic kidney disease, unspecified (principal); E83.42 Hypomagnesemia; I95.1 Orthostatic hypotension; I48.92 Unspecified atrial flutter; R53.1 Weakness; R00.0 Tachycardia, unspecified; R73.9 Hyperglycemia, unspecified; R06.02 Shortness of breath; R42 Dizziness and giddiness
CPT/HCPCS: 71045; 80053; 82803; 83735; 83880; 84443; 84484; 85025; 85378; 86803; 87389; 93005; 96361; 96365; 96374; 99291; J3475; J7030

== ENCOUNTER 2024-05-15 09:29 | Outpatient (CLI) | payer MEDICARE, SELFPAY ==
[2024-05-15 09:54] LABS: Basophils # 0.1 K/mm3 (0-0.2); Basophils % 1.3 % (0.1-2.0); Eosinophils # 0.3 K/mm3 (0.0-0.4); Eosinophils % 3.2 % (0.1-12.0); Hematocrit 40.8 % (42.0-52.0); Hemoglobin 13.4 g/dL (14.1-18.0); Lymphocytes # 1.2 K/mm3 (0.7-4.5); Lymphocytes % 13.5 % (10-50); Mean Corpuscular HGB Conc 32.8 g/dL (31.8-35.4); Mean Corpuscular Hemoglobin 30.7 pg (27.0-31.2); Mean Corpuscular Volume 93.6 fl (80-94); Mean Platelet Volume 10.5 fl (7.4-10.4); Monocytes % 11.9 % (1.7-9.3); Neutrophils % 69.2 % (37.0-80.0); Platelet Count 310 K/mm3 (142-424); Red Blood Count 4.36 M/mm3 (4.60-6.20); Red Cell Distribution Width 13.3 % (11.5-17.5); White Blood Count 8.7 K/mm3 (4.8-10.8)
[2024-05-15 10:42] LABS: Free T4 (Free Thyroxine) 1.37 ng/dl (0.78-2.19)
[2024-05-15 13:04] LABS: Albumin Level 3.6 g/dl (3.5-5.0); Chloride 105 mmol/L (98-107)
[2024-05-15 13:05] LABS: Potassium 4.4 mmoL/L (3.5-5.1); Sodium 138 mmol/L (136-145)
[2024-05-15 13:07] LABS: Anion Gap 15.4 mEq/L (5-15); Aspartate Amino Transferase 35 U/L (17-59); Bilirubin,Unconjugated 0.5 mg/dL (0.0-1.1); Blood Urea Nitrogen 13 mg/dl (9-20); Carbon Dioxide 22 mmol/L (22.0-30.0); Estimated Glomerular Filt Rate 83 ml/min (>60); GFR (African American) 101 ML/MIN (>60); Total Protein,Serum 6.6 g/dl (6.3-8.2)
[2024-05-15 13:08] LABS: Alkaline Phosphatase 57 U/L (38-126); Bilirubin,Direct 0.3 mg/dl (0.0-0.4); Bilirubin,Indirect 0.4 mg/dL (0.0-0.9); Bilirubin,Total 0.7 mg/dl (0.2-1.3); Calcium 8.7 mg/dl (8.4-10.2); Chol/HDL Ratio 5.8 (1-3.5); Cholesterol 133 mg/dl (140-200); Glucose 214 mg/dl (74-100); HDL Cholesterol 23 mg/dl (40-60); Magnesium 1.5 mg/dl (1.6-2.3); Triglycerides 123 mg/dl (30-150); VLDL Cholesterol 25 mg/dL (0-40)
[2024-05-15 13:19] LABS: Direct LDL Cholesterol 81.83 mg/dL (100-129)
[2024-05-15 13:38] LABS: Thyroid Stimulating Hormone 1.16 uIU/mL (0.465-4.68)
[2024-05-15 15:38] LABS: Alanine Aminotransferase 25 U/L (12-78)
== END 2024-05-15 23:59 | disposition home or self-care (01) ==
LOC: LAB 09:30
PROVIDERS: PCP Nurse Practitioner; Visit Provider Nurse Practitioner Family
DX: I25.118 Atherosclerotic heart disease of native coronary artery with other forms of angina pectoris (principal); E11.69 Type 2 diabetes mellitus with other specified complication; K21.9 Gastro-esophageal reflux disease without esophagitis; E78.2 Mixed hyperlipidemia; I10 Essential (primary) hypertension; E83.42 Hypomagnesemia; E87.6 Hypokalemia
CPT/HCPCS: 36415; 80048; 80061; 80076; 83735; 84439; 84443; 85025

== ENCOUNTER 2024-06-08 09:14 | Outpatient (CLI) | payer MEDICARE, SELFPAY ==
[2024-06-08 09:25] LABS: Basophils # 0.1 K/mm3 (0-0.2); Eosinophils # 0.3 K/mm3 (0.0-0.4); Hematocrit 44.3 % (42.0-52.0); Hemoglobin 14.5 g/dL (14.1-18.0); Lymphocytes # 1.5 K/mm3 (0.7-4.5); Mean Corpuscular HGB Conc 32.7 g/dL (31.8-35.4); Mean Corpuscular Hemoglobin 30.7 pg (27.0-31.2); Mean Corpuscular Volume 93.7 fl (80-94); Mean Platelet Volume 10.8 fl (7.4-10.4); Monocytes # 1.1 K/mm3 (0.1-1.0); Neutrophils # 6.2 K/mm3 (1.8-7.8); Neutrophils % 67.2 % (37.0-80.0); Platelet Count 233 K/mm3 (142-424); Red Blood Count 4.73 M/mm3 (4.60-6.20); Red Cell Distribution Width 14.1 % (11.5-17.5); White Blood Count 9.2 K/mm3 (4.8-10.8)
== END 2024-06-08 23:59 | disposition home or self-care (01) ==
LOC: LAB 09:15
PROVIDERS: Internal Medicine Pulmonary Disease; PCP Nurse Practitioner; Visit Provider Nurse Practitioner Family
DX: D72.10 Eosinophilia, unspecified (principal); J45.909 Unspecified asthma, uncomplicated
CPT/HCPCS: 36415; 85025

== ENCOUNTER 2024-06-12 11:05 | Outpatient (CLI) | payer MEDICARE, SELFPAY ==
--- NOTE | 2024-06-12 11:16 | XR_ITS ---
FINAL REPORT CLINICAL HISTORY: SOA COMPARISON: 05/07/2024 FINDINGS: CHEST 2 VIEWS The lungs are hypoinflated. No acute pulmonary density is evident. A trace left pleural effusion is present. The mediastinum has a normal appearance. The cardiac silhouette is unremarkable. IMPRESSION: No pneumonia or edema is identified. Trace left pleural effusion. Reviewed, Interpreted and Dictated by Lorena Villalta MD Transcribed by Emily Nolan Authenticated and [facility]
== END 2024-06-12 23:59 | disposition home or self-care (01) ==
LOC: RAD 11:06
PROVIDERS: PCP Nurse Practitioner; Visit Provider Nurse Practitioner Family
DX: R06.02 Shortness of breath (principal)
CPT/HCPCS: 71046

== ENCOUNTER 2024-07-03 10:22 | Outpatient (CLI) | payer MEDICARE, SELFPAY ==
[2024-07-03 11:44] LABS: Chloride 101 mmol/L (98-107)
[2024-07-03 11:45] LABS: Sodium 139 mmol/L (136-145)
[2024-07-03 11:48] LABS: Blood Urea Nitrogen 12 mg/dl (9-20); Calcium 8.9 mg/dl (8.4-10.2); Carbon Dioxide 29 mmol/L (22.0-30.0); Estimated Glomerular Filt Rate 66 ml/min (>60); GFR (African American) 80 ML/MIN (>60); Glucose 298 mg/dl (74-100); Magnesium 1.4 mg/dl (1.6-2.3)
--- OUTSIDE RECORDS SUMMARY | 2024-07-05 20:59 | XMS_ITS | Data Portability ---
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 Attempts have been made to correct errors during dictation, but some errors may remain [email or web address] [id number] Not available 02/29/2024 17:19:51 Plan of Treatment Reminders Order Date Submit Date Provider Last Modified By Organization Details Last Modified Time Details Appointments None recorded. Lab nonalcoholi c steatohepat itis + fibrosis panel, serum or plasma [address] (Lab Registration) , [address] [place] [address] [place], [address], 08:33:06 Referral None recorded. Procedures upper endoscopy procedure (EGD) (PROC) [address] (Central Scheduling), [address] [place] [address] [place], [address], 5 11:13:54 Surgeries None recorded. Imaging None recorded. Medication Orders Dexilant 60 mg capsule, delayed release [email or web address] [place] [address] [facility], [address] [place] [address] [facility] [address], [place], [id number], 12/09/202 4 16:04:20 Patient TargetsNo targets recorded. Patient InstructionsNo instructions recorded. Reason for Referral None Reported. Results Created Date Observation Date Name Description Value Unit Range Abnormal Flag Note LastModifiedBy Organization Detail LastModifiedTime 03/05/20 24 03/05/2024 SWAIN FIBRO SURE PLUS note Unles s other lloyd noted testi ng perfo rmed at: [facility] [address] [place] [address] Fredi soto MD Not Available [facility] (Pre-Op Clinic) [address] [facility] [place], [address], 03/08/2024 02:13:11 03/05/20 24 03/08/2024 SWAIN FIBRO SURE PLUS glucose, serum 412 mg/dL 70-99 high Not Available [facility] (Pre-Op Clinic) [address] [place] [address] [place], [address], 03/08/2024 02:13:11 03/05/20 24 03/08/2024 SWAIN FIBRO SURE PLUS triglyceride s 119 mg/dL 0-149 Not Available [facility] (Pre-Op Clinic) [address] [place] [address] [place], [address], 03/08/2024 02:13:11 03/05/20 24 03/08/2024 SWAIN FIBRO SURE PLUS cholesterol, total 106 mg/dL 100-19 9 Not Available [facility] (Pre-Op [facility]) [address] [place] [address] [place], [address], 03/08/2024 02:13:11 03/05/20 24 03/08/2024 SWAIN FIBRO SURE PLUS AST (SGOT) p5p 16 IU/L 0-40 Not Available [facility] (Pre-Op Clinic) [address] [place] [address] [place], [address], 03/08/2024 02:13:11 03/05/20 24 03/08/2024 SWAIN FIBRO SURE PLUS bilirubin, total 0.6 mg/dL 0.0-1. 2 Not Available [facility] (Pre-Op Clinic) [address] [place] [address] [place], [address], 03/08/2024 02:13:11 03/05/20 24 03/08/2024 SWAIN FIBRO SURE PLUS alpha 2-macroglobu jerrod, qn 208 mg/dL 110-27 6 Not Available [facility] (Pre[facility]Op [facility]) [address] [place] [address] [place], [address], 03/08/2024 02:13:11 03/05/20 24 03/08/2024 SWAIN FIBRO SURE PLUS GGT 15 IU/L 0-65 Not Available [facility] ([facility]Op [facility]) [address] [place] [address] [place], [address], 03/08/2024 02:13:11 03/05/20 24 03/08/2024 SWAIN FIBRO SURE PLUS haptoglobin 328 mg/dL 34-355 Not Available [facility] (Pre[facility]Op [facility]) [address] [place] [address] [place], [address], 03/08/2024 02:13:11 03/05/20 24 03/08/2024 SWAIN FIBRO SURE PLUS apolipoprote in A-1 125 mg/dL 101-17 8 Not Available [facility] (Pre-Op Clinic) [address] [place] [address] [place], [address], 03/08/2024 02:13:11 03/05/20 24 03/08/2024 SWAIN FIBRO SURE PLUS ALT (SGPT) p5p 16 IU/L 0-55 Not Available [facility] (Pre-Op Clinic) [address] [place] [address] [place], [address], 03/08/2024 02:13:11 03/05/20 24 03/08/2024 SWAIN FIBRO SURE PLUS fibrosis stage Commen t Fibro sis, Steat osis, and SWAIN score s could not be calcu lated . Testi shaji revea led an unusu ally high or low value for one or more of the bioch emica l lydia amy preve nting accur ate calcu latio n of the Fibro sis, Steat osis, and/o r SWAIN score s. Pleas e revsammy w the indiv idual lydia te resul ts and see the limit ation s secti on of this repor t. Not Available [facility] (Pre-Op [facility]) [address] [place] [address] [place], [address], 03/08/2024 02:13:11 03/05/20 24 03/08/2024 SWAIN FIBRO SURE PLUS limitations: Commnieves t . SWAIN Fibro Sure( R) Plus is recom jarocho d for patie nts with suspe cted non-a lcoho lic fatty liver disea se, now known as Metab olic Dysfu nctio n-Ass ociat ed Steat otic Liver Disea se or MASLD . It is not recom jarocho d for patie nts with other liver disea ses. It is also not recom jarocho d in patie nts with Gilbe rt Disea se, acute hemol ysis, acute viral hepat itis, drug induc ed hepat itis, cameron ic liver disea se, autoi mmune hepat itis and/o r extra -hepa tic jose stasi s. Any of these clini cam situa tions may lead to inacc urate quant itati ve predi ction s of fibro sis. Not Available [facility] (Pre-Op Clinic) [address] [place] [address] [place], [address], 03/08/2024 02:13:11 03/05/20 24 03/08/2024 SWAIN FIBRO SURE PLUS comment: Hari t . This test was devel oped and its perfo rmanc e denton cteri stics deter mined by [employer] rp. It has not been clear ed or appro layo by the Food and Drug Admin istra tion. . For quest ions regar ding this repor t pleas e conta ct custo maite servi ce at [phone]. . Refer ences : . 1. Billy Murcia et al. Diagn ostic Value of Bioch emica l Marke rs (Fibr oTest ) for the predi ction of Liver Fibro sis in patie nts with Non-A lcoho lic Fatty Liver Disea se. [facility] Gastr oente rolog y 2006 ; 6:6. 2. [address] T. et al. The Diagn ostic Perfo rmanc e of a Simpl i fied Blood Test (Stea toTdanna t-2) for the Predi ction of Liver Steat o sis. Eur J Gastr oente rol Hepat ol. 2019; 31:39 3-402 . 3. Violetta Galindo. et al. Diagn ostic perfo rmanc e of a new nonin v asive test for nonal cohol ic steat ohepa titis using a simpl ified his tolog ical refer ence. Eur J Gastr oente rol Hepat ol. 2017; 30:56 9-577 . Perfo rmed at: [facility] [place] [address] [facility] , [place] [address] Lab Dire tor: Rupinder aguilar MD, Phone : [phone] Not Available [facility] (Pre[facility]Op [facility]) [address] [place] [address] [place], [address], 03/08/2024 02:13:11 03/05/20 24 03/08/2024 SWAIN FIBRO SURE PLUS methodology: Hari t . The lydia amy teste d are perfo rmed by Fibro Sure- Speci fic metho ds. Not inten ded for use with other diagn ostic consi derat ions. Not Available [facility] (Pre[facility]Op [facility]) [address] [place] [address] [place], [address], 03/08/2024 02:13:11 Result Notes None recorded. Medical Equipment None Reported. Allergies No known drug allergies Medications Name Sig Start Date Stop Date Status Note LastModified by Organization Details LastModified Time insulin syringe U-100 with needle 1 mL 30 gauge x / USE DIRECTED TWICE DAILY active Not Available Not Available No t Available atorvastati n 40 mg tablet TAKE ONE TABLET BY MOUTH EVERY DAY active Not Available Not Available No t Available Novolin 70/30 U-100 Insulin 100 unit/mL subcutaneou s suspension INJECT 80 UNITS SUBCUTANE OUSLY IN THE MORNING AND INJECT 40 UNITS IN THE EVENING active Not Available Not Available No t Available doxycycline hyclate 100 mg capsule TAKE ONE CAPSULE BY MOUTH TWICE DAILY active Not Available Not Available No t Available atorvastati n 20 mg tablet TAKE ONE TABLET BY MOUTH EVERY DAY 03/05 completed Not Available Not Available Not Available metoprolol succinate ER 50 mg tablet,exte nded release 24 hr TAKE ONE TABLET BY MOUTH EVERY DAY active Not Available Not Available No t Available sucralfate 1 gram tablet TAKE ONE TABLET BY MOUTH FOUR TIMES DAILY ON an EMPTY stomach active Not Available Not Available No t Available isosorbide mononitrate ER 30 mg tablet,exte nded release 24 hr active Not Available Not Available Not Available clopidogrel 75 mg tablet TAKE ONE TABLET BY MOUTH EVERY DAY active Not Available Not Available No t Available omeprazole 40 mg capsule,del ayed release TAKE ONE CAPSULE BY MOUTH TWICE DAILY (take 1 capsule BEFORE morning meal) active Not Available Not Available No t Available triamcinolo ne acetonide 0.1 % topical cream APPLY TOPICALLY TO THE AFFECTED AREA(S) TWICE DAILY active Not Available Not Available No t Available spironolact one 25 mg tablet TAKE TWO TABLETS BY MOUTH EVERY DAY active Not Available Not Available No t Available losartan 100 mg-hydrochl orothiazide 25 mg tablet TAKE ONE TABLET BY MOUTH EVERY DAY 03/05 completed Not Available Not Available Not Available pantoprazol e 40 mg tablet,jennifer yed release TAKE ONE TABLET BY MOUTH EVERY DAY active Not Available Not Available No t Available omeprazole 20 mg capsule,del ayed release TAKE ONE CAPSULE BY MOUTH EVERY DAY 30 minutes BEFORE morning meal active Not Available Not Available No t Available mupirocin 2 % topical ointment APPLY OINTMENT TOPICALLY THREE TIMES DAILY APPLY TO LEFT EAR (SUPERIOR HELIX) active Not Available Not Available No t Available metoprolol succinate ER 25 mg tablet,exte nded release 24 hr TAKE ONE TABLET BY MOUTH EVERY DAY 03/05 completed Not Available Not Available Not Available albuterol sulfate HFA 90 mcg/actuati on aerosol inhaler INHALE 2 PUFFS BY MOUTH EVERY 6 HOURS NEEDED FOR SHORTNESS OF BREATH OR WHEEZING active Not Available Not Available No t Available losartan 50 mg-hydrochl orothiazide 12.5 mg tablet TAKE ONE TABLET BY MOUTH EVERY DAY active Not Available Not Available No t Available ranolazine ER 500 mg tablet,exte nded release,12 hr TAKE ONE TABLET BY MOUTH TWICE DAILY active Not Available Not Available No t Available Symbicort 160 mcg-4.5 mcg/actuati on HFA aerosol inhaler INHALE TWO PUFFS BY MOUTH TWICE DAILY active Not Available Not Available No t Available ranolazine ER 1,000 mg tablet,exte nded release,12 hr active Not Available Not Available Not Available dexlansopra zole 60 mg capsule,bip hase delayed release Take 1 capsule every day by oral route for 30 days. active Not Available Not Available No t Available Eliquis 5 mg tablet TAKE ONE TABLET BY MOUTH TWICE DAILY FOR blood thinner active Not Available Not Available No t Available Ozempic 0.25 mg or 0.5 mg (2 mg/3 mL) subcutaneou s pen injector INJECT 0.5 MG SUBCUTANE OUSLY ONCE WEEKLY active Not Available Not Available No t Available Vitals Date Recorded Body height Body mass index (BMI) Body weight Body temperature Oxygen saturation Oxygen saturation in Arterial blood by Pulse oximetry Heart rate Provider Name and Address Organization Details Last Updated DateTime 4 177.8 cm 37.4 kg/m2 481534. 61 g 97.7 [degF] 98 % 98 % 118 /min Kris CHAHAL [facility] & [place] 4 09:43:56 Social History Question Answer Notes LastModified by Organizat ion Details LastModified Time Tobacco Smoking Status Never Smoker Kris Godfrey [facility], [facility] & [place] 03/05/2024 09:48:30 What Is Your Level Of Alcohol Consumption? None [email or web address] Information not available 03/05/2024 Do You Use Any Illicit Or Recreational Drugs? No [email or web address] Information not available 03/05/2024 Sex: Male Functional Status None recorded. Mental Status None recorded. Family History Nothing Reported Notes:Mother & Father,Siblin gs-Heart Disease Mother,Father,Brother- Heart Maternal & Paternal Grandparents- Medical History No medical history recorded. 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 will order SWAIN will try to get old EGD colonoscop y report done in 2018 advise follow the PCP for G LP 1 type of medication and see can get ablation therapy with electrophy siologist review labs from 2 weeks Atrial fibrillation 4943 6004 I48.91 follow with the Cardiology for ablation therapy History of placement of stent for coronary artery disease 803838629 Z95.5 continue follow with cardiology Gastroesop hageal reflux disease without esophagitis 879720182 K21.9 long-actin g PPI anti-reflu x measure in the diet Health Concerns Section Related Observation LastModified by Organization Detai ls LastModified Time None Recorded Concern Status LastModified by Organization Details LastModified Time None Recorded Advance Directives Directive None Recorded Payers Encounter Date Sequence Insurance Name Policy Number Policy Mistry Covered Member ID Mistry Member ID Guarantor Name 03/05/2024 1 [employer] (MEDICARE REPLACEMENT/ ADVANTAGE - HMO) Norm Jordan [id number] Norm Joseph Notes Date Note Type Note Provider Name and Address Organization Details Recorded Time 03/05/2024 text/html This 69-year-old referred from Marlin atkins APRN [place] [facility] [place]D intermittent dysphagia chest burning on omeprazole 20 they increase to b.i.d. he had a small amount of hematemesis month ago no melena or hematochezia. He had a colonoscopy 5 7 years ago in [place] said to be negative. He has multiple complex heart problems coronary artery disease stent put in 6 months ago atrial fibrillation had cardioverted not had ablation done he is on dual blood thinner therapy. He is diabetic obese sleep apnea and mild kidney disease metabolic syndrome. Is not on any any Ozempic or any weight loss medication, or he has not any heart healthy Mediterranean diet. Labs done [address] [facility] do not have the report he was supposed to be the hard doctor next week and possible evaluation for another cardiac catheterization or not I am not sure or is planning to get ablation therapy I am not sure Phan Milligan MD [address] [place] [address], [address], [place], [address], [place] - [facility] - [place] & [place] 03/05/2024 15:59:40
--- OUTSIDE RECORDS SUMMARY | 2024-07-05 20:59 | XMS_ITS | Data Portability ---
Author Organization [facility] AD[facility] Address [address] [place] [address] Assessment Encounter Date Assessment Date Assessment LastModified by Organization Details LastModified Time 02/08/2023 02/08/2023 68-year-old male with recent severe nocturnal cough that has caused intermittent vomiting. This has recently resolved after he identified that drinking cold liquids was triggering his symptoms. I suspect this is due to laryngospasm. I have discussed EGD for evaluation of other potential underlying causes. He defers at this time due to potential risks associated with stopping anticoagulant/a ntiplatelet therapy as well as risks of sedation. -Continue Omeprazole once daily. -He will continue avoidance of triggering foods/liquids -f/u PRN [email or web address] Not available 02/08/2023 11:02:35 Plan of Treatment Reminders Order Date Submit Date Provider Last Modified By Organization Details Last Modified Time Details Appointments None record ed. Lab None record ed. Referral None record ed. Procedures None record ed. Surgeries None record ed. Imaging None record ed. Medication Orders None record ed. Patient TargetsNo targets recorded. Patient InstructionsNo instructions recorded. Reason for Referral None Reported. Problems Name Problem SNOMED Code Status Onset Date Resolution Date Notes Provider Name and Address Organization Details Recorded Time Laryngeal spasm 532000361 Active 2022 Karlos Nolan PA-C [address], [place], [address] , [facility] & [place] 3 10:50:04 Gastroesophag eal reflux disease without esophagitis 080464367 Active 2022 Karlos Nolan PA-C [address], [place], [address] , [facility] & [place] 3 10:50:11 Problem Notes None recorded. Medical Equipment None Reported. Allergies Allergen ID Allergen Name Allergen Category Reaction Reaction Severity Criticality Documentation Date Start Date Code Code System Note Provider Name and Address Organization Details Recorded Time 522747 codeine medicatio n Not available Not available Not available 02/08/2023 2670 RxNorm Jenise Akers [facility], [place] - [facility] & [place] 3 10:11:59 Medications Name Sig Start Date Stop Date Status Note LastModified by Organization Details LastModified Time amoxicillin 500 mg capsule TAKE 1 CAPSULE BY MOUTH TWICE DAILY FOR 10 DAYS active Not Available Not Available No t Available furosemide 40 mg tablet TAKE 2 TABLETS BY MOUTH IN THE MORNING AND 1 TABLET IN THE EVENING FOR 90 DAYS active Not Available Not Available Not Available Novolin 70/30 U-100 Insulin 100 unit/mL subcutaneous suspension INJECT 80 UNITS SUBCUTANEOU SLY IN THE MORNING AND 40 IN THE EVENING active Not Available Not Available No t Available doxycycline hyclate 100 mg capsule TAKE ONE CAPSULE BY MOUTH TWICE DAILY FOR 10 DAYS -- FINISH ALL MEDICINE -- active Not Available Not Available Not Available atorvastatin 10 mg tablet TAKE 1 TABLET BY MOUTH ONCE DAILY active Not Available Not Available No t Available azithromycin 250 mg tablet TAKE 2 TABLETS BY MOUTH ON DAY 1, AND THEN TAKE 1 TABLET BY MOUTH ONCE A DAY ON DAY 2 THROUGH DAY 5 active Not Available Not Available No t Available amiodarone 200 mg tablet TAKE TWO TABLETS BY MOUTH TWICE DAILY active Not Available Not Available No t Available benzonatate 200 mg capsule TAKE 1 CAPSULE BY MOUTH THREE TIMES DAILY FOR 7 DAYS active Not Available Not Available N ot Available Accu-Chek Softclix Lancets USE 1 TO CHECK GLUCOSE TWICE DAILY active Not Available Not Available Not Available clopidogrel 75 mg tablet TAKE 1 TABLET BY MOUTH ONCE DAILY FOR 90 DAYS active Not Available Not Available No t Available amlodipine 5 mg tablet TAKE 1 TABLET BY MOUTH ONCE DAILY active Not Available Not Available No t Available aspirin 81 mg tablet,delay ed release TAKE ONE TABLET BY MOUTH EVERY DAY active Not Available Not Available No t Available triamcinolon e acetonide 0.1 % topical cream APPLY CREAM EXTERNALLY TWICE DAILY active Not Available Not Available Not Available spironolacto ne 25 mg tablet TAKE TWO TABLETS BY MOUTH EVERY DAY active Not Available Not Available No t Available losartan 100 mg-hydrochlo rothiazide 25 mg tablet TAKE 1 TABLET BY MOUTH ONCE DAILY FOR 90 DAYS active Not Available Not Available No t Available omeprazole 20 mg capsule,jennifer yed release TAKE 1 CAPSULE BY MOUTH ONCE DAILY 30 MINUTES BEFORE MORNING MEAL active Not Available Not Available No t Available insulin syringe U-100 with needle 1 mL 31 gauge x /16 USE 1 SYRINGE SUBCUTANEOU SLY TWICE DAILY active Not Available Not Available No t Available metoprolol succinate ER 25 mg tablet,exten ded release 24 hr TAKE 1/2 TABLET BY MOUTH EVERY DAY active Not Available Not Available No t Available albuterol sulfate HFA 90 mcg/actuatio n aerosol inhaler INHALE 1 PUFF BY MOUTH EVERY 4 HOURS NEEDED FOR 7 DAYS active Not Available Not Available No t Available metformin ER 500 mg tablet,exten ded release 24 hr TAKE 4 TABLETS BY MOUTH ONCE DAILY WITH EVENING MEAL active Not Available Not Available No t Available spironolacto ne 50 mg tablet TAKE 1 TABLET BY MOUTH ONCE DAILY active Not Available Not Available No t Available Eliquis 5 mg tablet TAKE 1 TABLET BY MOUTH TWICE DAILY active Not Available Not Available No t Available Farxiga 5 mg tablet TAKE 1 TABLET BY MOUTH ONCE DAILY active Not Available Not Available No t Available Accu-Chek Guide test strips USE 1 STRIP TWICE DAILY active Not Available Not Available Not Available BD Ultra-Fine Micro Pen Needle 32 gauge x 1/4 USE 1 TWICE DAILY active Not Available Not Available No t Available Accu-Chek Guide Me Glucose Meter USE TO CHECK GLUCOSE TWICE DAILY DIRECTED active Not Available Not Available Not Available Vitals Date Recorded Body weight Body mass index (BMI) Body height Body temperature Oxygen saturation Oxygen saturation in Arterial blood by Pulse oximetry Heart rate Heart rate Systolic blood pressure Diastolic blood pressure Provider Name and Address Organization Details Last Updated DateTime 3 417935 g 37.7 kg/m2 177.8 cm 97.2 [degF] 91 % 91 % 75 /min 74 /min 153 mm[Hg] 90 mm[Hg] Jenise Akers [facility] & [place] 3 10:10:46 Social History None recorded. Functional Status None recorded. Mental Status None recorded. Family History Nothing Reported. Medical History No medical history recorded. Past Encounters Encounter ID Performer Location Encounter Start Date Encounter Closed Date Diagnosis/Indication Diagnosis SNOMED-CT Code Diagnosis ICD10 Code Diagnosis Note [id number] Karlos Nolan PA-C [facility] [address] [facility] [address] [place] [address] 02/08/2023 09:52:00 02/08/2023 11:10:10 Laryngeal spasm 574344808 J38.5 Gastroesop hageal reflux disease without esophagitis 044294311 K21.9 Health Concerns Section Related Observation LastModified by Organization Detai ls LastModified Time None Recorded Concern Status LastModified by Organization Details LastModified Time None Recorded Advance Directives Directive None Recorded Payers Encounter Date Sequence Insurance Name Policy Number Policy Mistry Covered Member ID Mistry Member ID Guarantor Name 02/08/2023 1 [employer] (MEDICARE REPLACEMENT/ ADVANTAGE - HMO) Norm Jordan [id number] Norm Joseph Notes Date Note Type Note Provider Name and Address Organization Details Recorded Time 02/08/2023 text/html Mr. Joseph is a very pleasant 68-year-old male who was referred by Rose Villegas NP for evaluation of GERD and dysphagia. He states that he has experienced nocturnal coughing that has led to vomiting for several weeks. He recently identified drinking cold liquids before bed as a trigger for this. He switched to drinking room temperature water instead and has had complete resolution of his symptoms. He is taking Omeprazole 20 mg before breakfast. He denies heartburn or dysphagia for the past 4 weeks. He denies chest pain, hematemesis, or melena. Karlos Nolan PA-C [address] [facility], [place], [address], [facility] - [place] - [place] & [place] 02/08/2023 11:02:46
== END 2024-07-03 23:59 | disposition home or self-care (01) ==
LOC: LAB 10:23
PROVIDERS: PCP Nurse Practitioner; Visit Provider Nurse Practitioner Family
DX: E87.6 Hypokalemia (principal); E83.42 Hypomagnesemia
CPT/HCPCS: 36415; 80048; 83735

== ENCOUNTER 2024-07-17 09:52 | Day surgery (SDC) | payer MEDICARE, SELFPAY ==
[2024-07-12 12:56] VITALS: BMI 37.3
[2024-07-17] MEDS: PHENYLEPHRINE 2.5% OPHTH SOLN 2ML OP ×3 (12:20→12:30)
[2024-07-17] MEDS: CYCLOPENTOLATE 2% OPHTH SOLN 2ML BOTTLE OP ×3 (12:20→12:30)
[2024-07-17] MEDS: TETRACAINE 0.5% OPTH SOL 15ML OP ×3 (12:20→12:30)
[2024-07-17 12:24] VITALS: BP 183/99; PULSE 79; RESP 22; TEMP 36.8; O2SAT 99
[2024-07-17] MEDS: SODIUM CHLORIDE 0.9% 10ML FLUSH SYRINGE 10 ML IV ×2 (12:32→13:17)
[2024-07-17 12:45] LABS: POC Glucose,Bedside 238 (70-110)
[2024-07-17 13:12] VITALS: BP 183/85; PULSE 80; RESP 16; O2SAT 99
[2024-07-17 13:17] VITALS: BP 178/84; PULSE 81; RESP 16; O2SAT 99
[2024-07-17] MEDS: MIDAZOLAM 2MG/2ML VIAL 1 MG IV (13:17)
[2024-07-17] MEDS: LIDOCAINE 1% PF 2ML AMPULE 2 ML IJ (13:18)
[2024-07-17] MEDS: TOBRAMYCIN/DEX OPTH SUSP 2.5ML OP (13:18)
[2024-07-17] MEDS: TIMOLOL 0.5% OPTH SOLN 5ML OP (13:18)
[2024-07-17 13:22] VITALS: BP 169/86; PULSE 71; RESP 16; O2SAT 99
[2024-07-17 13:28] VITALS: BP 170/90; PULSE 76; RESP 16; O2SAT 99
[2024-07-17 13:30] VITALS: BP 151/93; PULSE 81; RESP 16; TEMP 36.5; O2SAT 96
--- NOTE | 2024-07-17 14:26 | P.PCN_ITS ---
[facility] Procedure Note Date: 07/17/24 Time: 14:26 Procedure Note:: Preoperative Diagnosis: Cataract combined NS Cortical Complex [Left] Eye Postop diagnosis: same Operation: Microscopic phacoemulsification with intraocular lens implant [Left] Eye Specimen: None Blood Loss: None The patient was examined in the office with a complaint of poor vision in the [left] eye. The patient reports that this interferes with ADLs such as reading, watching TV and/or driving or the vision is like looking through a foggy haze and is very troubling. The patient was examined and found to have a visually significant cataract with best corrected vision of [20/400] by refraction and/or glare testing. Treatment options, risks and benefits were explained and the patient elected to have cataract surgery in an attempt to improve their vision. The patient had the eye anesthetized with topical tetracaine, the eye ways prepped and draped in the usual fashion for cataract surgery. A paracentesis and a temporal keratotomy were made. 0.2cc of 1% lidocaine PF was placed into the anterior chamber. And aqueous/viscoelastic exchange was done and a 360 degree capsulorexis was performed. Through hydrodissection and delineation with BSS on a cannula was done. The lens nucleus was phecoemulsified with CDE of [11.43]. Residual cortical material was removed using automated I&A The capsular bag was deepened with viscoelastica and a PCIOL was placed in the capsular bag with good centration and stability. Residual viscoelastic was removed using automated I&A. The keratotomy incision was hydrated with BSS on a cannula. The wound were checked and found to be water tight. IOP was checked digitally and adjusted as needed so as not to be too high. 1 drop of timolol 0.5%, ofloxacin, prednisolone acetate and ketorolac was instilled and eye shield taped over the eye. The patient was taken to recovery in good condition and will be seen postoperatively.
== END 2024-07-17 13:36 | disposition home or self-care (01) ==
PROVIDERS: PCP Nurse Practitioner; Visit Provider Ophthalmology
PROC: (CPT 66984; principal; 2024-07-17 13:00)
DX: H25.812 Combined forms of age-related cataract, left eye (principal); E11.9 Type 2 diabetes mellitus without complications
CPT/HCPCS: 66984; 82962; J2250; V2632

== ENCOUNTER 2024-07-31 11:10 | Outpatient (CLI) | payer MEDICARE, SELFPAY ==
--- OUTSIDE RECORDS SUMMARY | 2024-07-31 11:12 | XMS_ITS | Data Portability ---
Author Organization [facility] [place] Address [address] [place] [address] Assessment Encounter Date Assessment Date Assessment LastModified by Organization Details LastModified Time 03/05/2024 03/05/2024 Parts of this document were prepared using voice recognition software and may contain unrecognized dictation errors and word substitutions commonly found with electronic senior sql database developer. Attempts have been made to correct errors during dictation, but some errors may remain [email or web address] [id number] Not available 02/29/2024 17:19:51 Plan of Treatment Reminders Order Date Submit Date Provider Last Modified By Organization Details Last Modified Time Details Appointments None recorded. Lab nonalcoholi c steatohepat itis + fibrosis panel, serum or plasma [address] (Lab Registration) , [address] [place] [address] [place], [address], 08:33:06 Referral None recorded. Procedures upper endoscopy procedure (EGD) (PROC) [address] (Central Scheduling), [address] [place] [address] [place], [address], 5 11:13:54 Surgeries None recorded. Imaging None recorded. Medication Orders Dexilant 60 mg capsule, delayed release [email or web address] [place] [address] Pharmacy [facility], [address] [place] [address] [facility] [place] [address], [place], [id number], 12/09/202 4 16:04:20 Patient TargetsNo targets recorded. Patient InstructionsNo instructions recorded. Reason for Referral None Reported. Results Created Date Observation Date Name Description Value Unit Range Abnormal Flag Note LastModifiedBy Organization Detail LastModifiedTime 03/05/20 24 03/05/2024 SWAIN FIBRO SURE PLUS note Unles s other lloyd noted testi ng perfo [facility]med at: [facility] [address] [place] [address] Fredi soto MD Not Available [facility] (Pre-Op Clinic) [address] [facility] [place], [address], 03/08/2024 02:13:11 03/05/20 24 03/08/2024 SWAIN FIBRO SURE PLUS glucose, serum 412 mg/dL 70-99 high Not Available [facility] (Pre-Op Clinic) [address] [place] [address] [place], [address], 03/08/2024 02:13:11 03/05/20 24 03/08/2024 SWAIN FIBRO SURE PLUS triglyceride s 119 mg/dL 0-149 Not Available [facility] (Pre-Op Clinic) [address] [place] [address] [place], [address], 03/08/2024 02:13:11 03/05/20 24 03/08/2024 SWAIN FIBRO SURE PLUS cholesterol, total 106 mg/dL 100-19 9 Not Available [facility] (Pre-Op Clinic) [address] [place] [address] [place], [address], 03/08/2024 02:13:11 03/05/20 24 03/08/2024 SWAIN FIBRO SURE PLUS AST (SGOT) p5p 16 IU/L 0-40 Not Available [facility] (Pre-Op Clinic) [address] [place] [address] [place], [address], 03/08/2024 02:13:11 03/05/20 24 03/08/2024 SWAIN FIBRO SURE PLUS bilirubin, total 0.6 mg/dL 0.0-1. 2 Not Available [facility] (Pre-Op Clinic) [address] [place] [address] [place], [address], 03/08/2024 02:13:11 03/05/20 24 03/08/2024 SWAIN FIBRO SURE PLUS alpha 2-macroglobu jerrod, qn 208 mg/dL 110-27 6 Not Available [facility] (Pre-Op Clinic) [address] [place] [address] [place], [address], 03/08/2024 02:13:11 03/05/20 24 03/08/2024 SWAIN FIBRO SURE PLUS GGT 15 IU/L 0-65 Not Available [facility] (Pre-Op Clinic) [address] [place] [address] [place], [address], 03/08/2024 02:13:11 03/05/20 24 03/08/2024 SWAIN FIBRO SURE PLUS haptoglobin 328 mg/dL 34-355 Not Available [facility] (Pre-Op Clinic) [address] [place] [address] [place], [address], 03/08/2024 02:13:11 03/05/20 24 03/08/2024 SWAIN FIBRO SURE PLUS apolipoprote in A-1 125 mg/dL 101-17 8 Not Available [facility] (Pre-Op Clinic) [address] [place] [address] [place], [address], 03/08/2024 02:13:11 03/05/20 24 03/08/2024 SWAIN FIBRO SURE PLUS ALT (SGPT) p5p 16 IU/L 0-55 Not Available [facility] (Pre-Op Clinic) [address] [place] [address] [place], [address], 03/08/2024 02:13:11 03/05/20 24 03/08/2024 SWAIN FIBRO [...] on of this repor t. Not Available [facility] (Pre-Op Clinic) [address] [place] [address] [place], [address], 03/08/2024 02:13:11 03/05/20 24 03/08/2024 SWAIN FIBRO [...] ction s of fibro sis. Not Available [facility] (Pre-Op Clinic) [address] [place] [address] [place], [address], 03/08/2024 02:13:11 03/05/20 24 03/08/2024 SWAIN FIBRO SURE PLUS comment: Hari t . This test was devel oped and its perfo rmanc e denton cteri stics deter mined by [employer] rp. It has not been clear ed or appro layo by the Food and Drug Admin istra tion. . For quest ions regar ding this repor t pleas e conta ct custo maite servi ce at [phone]- [phone]. . Refer ences : . 1. Billy [...] at: BN - [facility] [place] [address] [facility] , [place] [address] Lab Dire tor: Rupinder aguilar MD, Phone : [phone] Not Available [facility] (Pre-Op Clinic) [address] [place] [address] [place], [address], 03/08/2024 02:13:11 03/05/20 24 03/08/2024 SWAIN FIBRO SURE PLUS methodology: Hari t . The lydia amy teste d are perfo rmed by Fibro Sure- Speci fic metho ds. Not inten ded for use with other diagn ostic consi derat ions. Not Available [facility] (Pre-Op Clinic) [address] [place] [address] [place], [address], 03/08/2024 02:13:11 Result Notes None recorded. Medical [...] Updated DateTime 4 177.8 cm 37.4 kg/m2 220499. 61 g 97.7 [degF] 98 % 98 % 118 /min Kris CHAHAL [facility] & [place] 4 09:43:56 Social History Question Answer Notes LastModified by Organizat ion Details LastModified Time Tobacco Smoking Status Never Smoker Kris Godfrey [facility], [facility] & [place] 03/05/2024 09:48:30 What Is Your Level Of Alcohol Consumption? None [email or web address] Information not available 03/05/2024 Do You Use Any Illicit Or Recreational Drugs? No [email or web address] Information not available 03/05/2024 Sex: Male Functional Status None recorded. Mental Status None recorded. Family History Nothing Reported Notes:Mother & Father,Siblin gs-Heart Disease Mother,Father,Brother- Heart Maternal & Paternal Grandparents- Medical History No medical history recorded. 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 he had a small amount of hematemesis month ago no melena or hematochezia. He had a colonoscopy 5 7 years ago in [place] said to be negative. He has multiple [...] diet. 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
[2024-07-31 12:11] LABS: Chloride 100 mmol/L (98-107); Potassium 3.8 mmoL/L (3.5-5.1); Sodium 138 mmol/L (136-145)
[2024-07-31 12:14] LABS: Anion Gap 11.8 mEq/L (5-15); Blood Urea Nitrogen 13 mg/dl (9-20); Calcium 9.1 mg/dl (8.4-10.2); Carbon Dioxide 30 mmol/L (22.0-30.0); Estimated Glomerular Filt Rate 83 ml/min (>60); GFR (African American) 101 ML/MIN (>60); Glucose 319 mg/dl (74-100); Magnesium 1.5 mg/dl (1.6-2.3)
[2024-07-31 12:25] LABS: NT Pro Brain Natriuretic Pep. 1170 pg/mL (0-125)
== END 2024-07-31 23:59 | disposition home or self-care (01) ==
PROVIDERS: PCP Nurse Practitioner; Visit Provider Nurse Practitioner Family
DX: E78.2 Mixed hyperlipidemia (principal); E83.42 Hypomagnesemia; I25.10 Atherosclerotic heart disease of native coronary artery without angina pectoris; I10 Essential (primary) hypertension
CPT/HCPCS: 36415; 80048; 83735; 83880

== ENCOUNTER 2024-08-07 09:06 | Day surgery (SDC) | payer MEDICARE, SELFPAY ==
[2024-08-06 15:49] VITALS: BMI 37.8
[2024-08-07] MEDS: PHENYLEPHRINE 2.5% OPHTH SOLN 2ML OP ×3 (09:55→10:05)
[2024-08-07] MEDS: CYCLOPENTOLATE 2% OPHTH SOLN 2ML BOTTLE OP ×3 (09:55→10:05)
[2024-08-07] MEDS: TETRACAINE 0.5% OPTH SOL 15ML OP ×3 (09:55→10:05)
[2024-08-07 10:00] VITALS: BP 185/97; PULSE 86; RESP 20; TEMP 36.2; O2SAT 94
[2024-08-07 11:05] VITALS: BP 173/81; PULSE 84; RESP 18; TEMP 36.6; O2SAT 95
[2024-08-07] MEDS: MIDAZOLAM 2MG/2ML VIAL 1 MG IV (11:05)
[2024-08-07] MEDS: SODIUM CHLORIDE 0.9% 10ML FLUSH SYRINGE 10 ML IV (11:05)
[2024-08-07 11:10] VITALS: BP 169/84; PULSE 87; RESP 18; TEMP 36.6; O2SAT 91
[2024-08-07] MEDS: LIDOCAINE 1% PF 2ML AMPULE 2 ML IJ (11:13)
[2024-08-07] MEDS: TIMOLOL 0.5% OPTH SOLN 5ML OP (11:13)
[2024-08-07] MEDS: TOBRAMYCIN/DEX OPTH SUSP 2.5ML OP (11:13)
[2024-08-07 11:15] VITALS: BP 161/82; PULSE 80; RESP 18; TEMP 36.6; O2SAT 96
[2024-08-07 11:20] VITALS: BP 167/82; PULSE 84; RESP 18; TEMP 36.6; O2SAT 96
[2024-08-07 11:24] VITALS: BP 153/85; PULSE 87; RESP 18; TEMP 36.2; O2SAT 97
[2024-08-07 11:49] LABS: POC Glucose,Bedside 243 (70-110)
== END 2024-08-07 11:37 | disposition home or self-care (01) ==
PROVIDERS: PCP Nurse Practitioner; Visit Provider Ophthalmology
PROC: (CPT 66984; principal; 2024-08-07 11:30)
DX: H26.9 Unspecified cataract (principal); E11.9 Type 2 diabetes mellitus without complications
CPT/HCPCS: 66984; 82962; J2250; V2632

== ENCOUNTER 2024-08-09 11:05 | Outpatient (CLI) | payer MEDICARE, SELFPAY ==
[2024-08-09 11:46] LABS: Chloride 100 mmol/L (98-107); Potassium 3.6 mmoL/L (3.5-5.1); Sodium 139 mmol/L (136-145)
[2024-08-09 11:49] LABS: Anion Gap 10.6 mEq/L (5-15); Blood Urea Nitrogen 14 mg/dl (9-20); Calcium 8.9 mg/dl (8.4-10.2); Carbon Dioxide 32 mmol/L (22.0-30.0); Estimated Glomerular Filt Rate 83 ml/min (>60); GFR (African American) 101 ML/MIN (>60); Glucose 215 mg/dl (74-100)
== END 2024-08-09 23:59 | disposition home or self-care (01) ==
LOC: LAB 11:06
PROVIDERS: PCP Nurse Practitioner; Visit Provider Nurse Practitioner Family
DX: E83.42 Hypomagnesemia (principal); I27.20 Pulmonary hypertension, unspecified; I10 Essential (primary) hypertension; I25.10 Atherosclerotic heart disease of native coronary artery without angina pectoris; E78.5 Hyperlipidemia, unspecified
CPT/HCPCS: 36415; 80048

== ENCOUNTER 2024-09-03 09:16 | Day surgery (SDC) | payer MEDICARE, SELFPAY ==
[2024-09-03] VITALS (9 sets, daily range): BP systolic 147–175; BP diastolic 83–105; PULSE 72–86; RESP 18; TEMP 36.6; O2SAT 90–98; BMI 37.1
--- NOTE | 2024-09-03 07:06 | IR_ITS ---
APPROVED REPORT Patient Location: Outpatient PROCEDURES Right internal jugular access Right heart catheterization INDICATION Pulmonary hypertension, Congestive heart failure Informed consent was obtained prior to the procedure. COMPLICATIONS NONE Estimated Blood Loss: LESS THAN 10 ML TECHNIQUE One percent lidocaine was used to anesthetize the right anterior aspect of the neck. A crisis mental health therapist needle was used to identify the right internal jugular vein. Following this a larger cannulation needle was used to cannulate the right internal jugular vein and a wire was passed into the vein. Prior to the 7 Spanish sheath being inserted the wire was confirmed under fluoroscopic guidance to be in the inferior vena cava. A 7 Spanish sheath was introduced and a Picacho-Etelvina catheter was floated using hemodynamic waveforms in the pulmonary artery, right ventricle , and right atrium. Saturations were obtained in the pulmonary artery and the right atrium. At the end of the procedure the patient was transferred to the postop holding area in stable condition for sheath removal. ANGIOGRAPHIC RESULTS Right atrial pressure 10 mmHg Pulmonary artery pressure 45/25 mmHg Pulmonary artery occlusion pressure 20 mmHg Right atrial saturation 72% Pulmonary artery saturation 71% Aortic saturation 100% Hemoglobin 16 Cardiac output 4.6 L/min Cardiac index 2.0 IMPRESSION Moderate pulmonary hypertension as described above Elevated left-sided filling pressures consistent with diastolic dysfunction PLAN 1. Recommend additional diuresis 2. Consider sleep study 3. Further workup for diastolic dysfunction Electronically signed by : Jaiden Nunez MD 09/03/2024 11:16:32
[2024-09-03 09:44] LABS: Basophils # 0.1 K/mm3 (0-0.2); Eosinophils # 0.3 Kmm3 (0.0-0.4); Eosinophils % 3.2 % (0.1-12.0); Hematocrit 49.4 % (42.0-52.0); Hemoglobin 16.1 g/dL (14.1-18.0); Immature Granulocytes # 0.06 10^3uL; Immature Granulocytes % 0.7 %; Lymphocytes # 1.3 K/mm3 (0.7-4.5); Lymphocytes % 15.3 % (10-50); Mean Corpuscular HGB Conc 32.6 g/dL (31.8-35.4); Mean Corpuscular Hemoglobin 28.1 pg (27.0-31.2); Mean Corpuscular Volume 86.4 fl (80-94); Mean Platelet Volume 10.5 fl (7.4-10.4); Monocytes % 11.5 % (1.7-9.3); Neutrophils # 5.9 K/mm3 (1.8-7.8); Neutrophils % 68.3 % (37.0-80.0); Nucleated Red Blood Cells # 0 10^3/uL; Nucleated Red Blood Cells % 0 %; Platelet Count 230 K/mm3 (142-424); Red Blood Count 5.72 M/mm3 (4.60-6.20); Red Cell Distribution Width 14.1 % (11.5-17.5); Red Cell Distribution Width-SD 44.6 fL; White Blood Count 8.6 K/mm3 (4.8-10.8)
[2024-09-03 09:54] LABS: Chloride 99 mmol/L (98-107); Potassium 3.8 mmoL/L (3.5-5.1); Sodium 137 mmol/L (136-145)
[2024-09-03 09:57] LABS: Anion Gap 9.8 mEq/L (5-15); Blood Urea Nitrogen 20 mg/dl (9-20); Calcium 9.3 mg/dl (8.4-10.2); Carbon Dioxide 32 mmol/L (22.0-30.0); Creatinine Clearance Estimated 102 mL/min (50-200); Estimated Glomerular Filt Rate 66 ml/min (>60); GFR (African American) 80 ML/MIN (>60); Glucose 248 mg/dl (74-100)
[2024-09-03] MEDS: HEPARIN 1,000 UNITS/500ML NS (CATH LAB) 3000 UNIT IV (10:46)
[2024-09-03] MEDS: diphenhydrAMINE 50MG/ML VIAL 50 MG IV (10:47)
[2024-09-03] MEDS: 0.9 % SODIUM CHLORIDE 500 ML 25 ML IV (10:47)
[2024-09-03] MEDS: LIDOCAINE 1% 10ML MDV 10 ML IJ (10:47)
[2024-09-03] MEDS: MIDAZOLAM HCL 1MG/ML 5ML VIAL 1 MG IV (10:58)
[2024-09-03] MEDS: FENTANYL 100MCG/2ML VIAL 50 MCG IV (10:58)
[2024-09-03 11:29] LABS: CATHL Arterial O2 SAT 71.4 % (90-100)
--- NOTE | 2024-09-03 12:46 | SUR.PHASEII ---
clinic pharmacy called this RN to explain that pt's insurance would not cover the new dosage of 80mg BID because pt has 40mg at home.educated pt anf family to take x2 40mg tablets twice a day. pt and family had no further questions.
== END 2024-09-03 12:46 | disposition home or self-care (01) ==
PROVIDERS: PCP Nurse Practitioner; Visit Provider Internal Medicine
PROC: 4A023N7 Measurement of Cardiac Sampling and Pressure, Left Heart, Percutaneous Approach (ICD-10-PCS; CPT 93452; principal; 2024-09-03 07:00)
DX: I27.20 Pulmonary hypertension, unspecified (principal); I25.10 Atherosclerotic heart disease of native coronary artery without angina pectoris; I50.9 Heart failure, unspecified; I11.0 Hypertensive heart disease with heart failure; R06.09 Other forms of dyspnea; I48.91 Unspecified atrial fibrillation; I48.92 Unspecified atrial flutter; E11.9 Type 2 diabetes mellitus without complications; E78.5 Hyperlipidemia, unspecified; K21.9 Gastro-esophageal reflux disease without esophagitis; G47.33 Obstructive sleep apnea (adult) (pediatric); Z82.49 Family history of ischemic heart disease and other diseases of the circulatory system; Z77.22 Contact with and (suspected) exposure to environmental tobacco smoke (acute) (chronic); Z79.01 Long term (current) use of anticoagulants; Z79.4 Long term (current) use of insulin; Z79.02 Long term (current) use of antithrombotics/antiplatelets; Z79.899 Other long term (current) drug therapy; Z88.5 Allergy status to narcotic agent; Z95.5 Presence of coronary angioplasty implant and graft
CPT/HCPCS: 93451; 93566; 80048; 82810; 85025; 99152; C1894; J1200; J1644; J2004; J3010; J7040

== ENCOUNTER 2024-09-10 10:07 | Outpatient (CLI) | payer MEDICARE, SELFPAY ==
[2024-09-10 11:19] LABS: Chloride 95 mmol/L (98-107)
[2024-09-10 11:20] LABS: Potassium 4.5 mmoL/L (3.5-5.1); Sodium 137 mmol/L (136-145)
[2024-09-10 11:22] LABS: Anion Gap 13.5 mEq/L (5-15); Blood Urea Nitrogen 25 mg/dl (9-20); Carbon Dioxide 33 mmol/L (22.0-30.0); Estimated Glomerular Filt Rate 54 ml/min (>60); GFR (African American) 66 ML/MIN (>60)
[2024-09-10 11:23] LABS: Calcium 9.9 mg/dl (8.4-10.2); Magnesium 1.7 mg/dl (1.6-2.3)
[2024-09-10 14:11] LABS: Glucose 403 mg/dl (74-100)
== END 2024-09-10 23:59 | disposition home or self-care (01) ==
LOC: LAB 10:07
PROVIDERS: PCP Nurse Practitioner; Visit Provider Physician Assistant
DX: E83.42 Hypomagnesemia (principal); I10 Essential (primary) hypertension; I25.10 Atherosclerotic heart disease of native coronary artery without angina pectoris
CPT/HCPCS: 36415; 80048; 83735

== ENCOUNTER 2024-09-13 12:33 | Outpatient (CLI) | payer MEDICARE, SELFPAY ==
--- OUTSIDE RECORDS SUMMARY | 2024-09-13 12:37 | XMS_ITS | Data Portability ---
Author Organization [facility] Address [address] [place] [address] Assessment Encounter Date Assessment Date Assessment LastModified [...] continue avoidance of triggering foods/liquids -f/u PRN [email or web address] Not available 02/08/2023 11:02:35 Plan of Treatment [...] Address Organization Details Recorded Time Laryngeal spasm 910633051 Active 2022 Karlos Nolan PA-C [address], [place], [address] , [facility] & [place] 3 10:50:04 Gastroesophag eal reflux disease without esophagitis 581020444 Active 2022 Karlos Nolan PA-C [address], [place], [address] , [facility] & [place] 3 10:50:11 Problem Notes None recorded. Medical Equipment None Reported. Allergies Allergen ID Allergen Name Allergen Category Reaction Reaction Severity Criticality Documentation Date Start Date Code Code System Note Provider Name and Address Organization Details Recorded Time 262173 codeine medicatio n Not available Not available Not available 02/08/2023 2670 RxNorm Jenise Akers [facility], [place] - [facility] & [place] 3 10:11:59 Medications Name Sig Start Date [...] Address Organization Details Last Updated DateTime 3 685683 g 37.7 kg/m2 177.8 cm 97.2 [degF] 91 % 91 % 75 /min 74 /min 153 mm[Hg] 90 mm[Hg] Jenise Akers [facility] & [place] 3 10:10:46 Social History None recorded. Functional Status None recorded. Mental Status None recorded. Family History Nothing Reported. Medical History No medical history recorded. Past Encounters Encounter ID Performer Location Encounter Start Date Encounter Closed Date Diagnosis/Indication Diagnosis SNOMED-CT Code Diagnosis ICD10 Code Diagnosis Note [id number] Karlos Nolan PA-C [facility] [facility] [address] [place] [address] 02/08/2023 09:52:00 02/08/2023 11:10:10 Laryngeal spasm 747388572 J38.5 Gastroesop hageal reflux disease without esophagitis 031907523 K21.9 Health Concerns Section Related Observation LastModified by Organization Detai ls LastModified Time None Recorded Concern Status LastModified by Organization Details LastModified Time None Recorded Advance Directives Directive None Recorded Payers Insurance Date Sequence Insurance Name Policy Number Policy Mistry Covered Member ID Mistry Member ID Guarantor Name 02/10/2023 1 [employer] (MEDICARE REPLACEMENT/ ADVANTAGE - HMO) Norm Jordan [id number] Norm Joseph Notes Date Note Type Note [...] pain, hematemesis, or melena. Karlos Nolan PA-C [address] [facility], [place], [address], [facility] - [place] - [place] & [place] 02/08/2023 11:02:46
--- OUTSIDE RECORDS SUMMARY | 2024-09-13 12:37 | XMS_ITS | Data Portability ---
Author Organization [facility] [place] Address [address] [place] [address] Assessment Encounter Date Assessment Date Assessment LastModified by Organization Details LastModified Time 03/05/2024 03/05/2024 Parts of this document were prepared using voice recognition software and may contain unrecognized dictation errors and word substitutions commonly found with electronic quotation clerk. Attempts have been made to correct errors during dictation, but some errors may remain [email or web address] [id number] Not available 02/29/2024 17:19:51 Plan of Treatment Reminders Order Date Submit Date Provider Last Modified By Organization Details Last Modified Time Details Appointments None recorded. Lab nonalcoholi c steatohepat itis + fibrosis panel, serum or plasma [address] (Lab Registration) , [address] [place] [address] [place], [address], 08:33:06 Referral None recorded. Procedures upper endoscopy procedure (EGD) (PROC) [address] (Central Scheduling), [address] [place] [address] [place], [address], 5 11:13:54 Surgeries None recorded. Imaging None recorded. Medication Orders Dexilant 60 mg capsule, delayed release [email or web address] [place] [address] Pharmacy [facility], [address] [place] [address] [facility] [address], [place], [id number], 12/09/202 4 16:04:20 Patient TargetsNo targets recorded. Patient InstructionsNo instructions recorded. Reason for Referral None Reported. Results Created Date Observation Date Name Description Value Unit Range Abnormal Flag Note LastModifiedBy Organization Detail LastModifiedTime 03/05/20 24 03/05/2024 SWAIN FIBRO SURE PLUS note Unles s other lloyd noted testi ng perfo rmed at: [facility] [address] [place] [address] Fredi soto MD Not Available [facility] (Pre-Op Clinic) [address] [facility] [place], [address], 03/08/2024 02:13:11 03/05/20 24 03/08/2024 SWAIN FIBRO SURE PLUS glucose, serum 412 mg/dL 70-99 high Not Available [facility] (Pre-Op Clinic) [address] [place] [address] [place], [address], 03/08/2024 02:13:11 03/05/20 24 03/08/2024 SWAIN FIBRO SURE PLUS triglyceride s 119 mg/dL 0-149 Not Available [facility] (Pre-Op Clinic) [address] [place] [address] [place], [address], 03/08/2024 02:13:11 03/05/20 24 03/08/2024 SWAIN FIBRO SURE PLUS cholesterol, total 106 mg/dL 100-19 9 Not Available [facility] (Pre-Op Clinic) [address] [place] [address] [place], [address], 03/08/2024 02:13:11 03/05/20 24 03/08/2024 SWAIN FIBRO SURE PLUS AST (SGOT) p5p 16 IU/L 0-40 Not Available [facility] (Pre-Op Clinic) [address] [place] [address] [place], [address], 03/08/2024 02:13:11 03/05/20 24 03/08/2024 SWAIN FIBRO SURE PLUS bilirubin, total 0.6 mg/dL 0.0-1. 2 Not Available [facility] (Pre-Op Clinic) [address] [place] [address] [place], [address], 03/08/2024 02:13:11 03/05/20 24 03/08/2024 SWAIN FIBRO SURE PLUS alpha 2-macroglobu jerrod, qn 208 mg/dL 110-27 6 Not Available [facility] (Pre-Op Clinic) [address] [place] [address] [place], [address], 03/08/2024 02:13:11 03/05/20 24 03/08/2024 SWAIN FIBRO SURE PLUS GGT 15 IU/L 0-65 Not Available [facility] (Pre-Op Clinic) [address] [place] [address] [place], [address], 03/08/2024 02:13:11 03/05/20 24 03/08/2024 SWAIN FIBRO SURE PLUS haptoglobin 328 mg/dL 34-355 Not Available [facility] (Pre-Op Clinic) [address] [place] [address] [place], [address], 03/08/2024 02:13:11 03/05/20 24 03/08/2024 SWANI FIBRO SURE PLUS apolipoprote in A-1 125 mg/dL 101-17 8 Not Available [facility] (Pre-Op Clinic) [address] [place] [address] [place], [address], 03/08/2024 02:13:11 03/05/20 24 03/08/2024 SWAIN FIBRO SURE PLUS ALT (SGPT) p5p 16 IU/L 0-55 Not Available [facility] (Pre-Op Clinic) [address] [place] [address] [place], [address], 03/08/2024 02:13:11 03/05/20 24 03/08/2024 SWAIN FIBRO [...] on of this repor t. Not Available [facility] (Pre-Op Clinic) [address] [place] [address] [place], [address], 03/08/2024 02:13:11 03/05/20 24 03/08/2024 SWAIN FIBRO [...] ction s of fibro sis. Not Available [facility] (Pre-Op Clinic) [address] [place] [address] [place], [address], 03/08/2024 02:13:11 03/05/20 24 03/08/2024 SWAIN FIBRO SURE PLUS comment: Hari t . This test was devel oped and its perfo rmanc e denton cteri stics deter mined by [employer]. It has not been clear ed or appro layo by the Food and Drug Admin istra tion. . For quest ions regar ding this repor t pleas e conta ct custo maite servi ce at [phone]- [phone]. . Refer ences : . 1. Billy [...] at: BN - [facility] [place] [address] [facility] , [place] [address] Lab Dire tor: Rupinder aguilar MD, Phone : [phone] Not Available [facility] (Pre-Op Clinic) [address] [place] [address] [place], [address], 03/08/2024 02:13:11 03/05/20 24 03/08/2024 SWAIN FIBRO SURE PLUS methodology: Hari t . The lydia amy teste d are perfo rmed by Fibro Sure- Speci fic metho ds. Not inten ded for use with other diagn ostic consi derat ions. Not Available [facility] (Pre-Op Clinic) [address] [place] [address] [place], [address], 03/08/2024 02:13:11 Result Notes None recorded. Medical [...] Updated DateTime 4 177.8 cm 37.4 kg/m2 742829. 61 g 97.7 [degF] 98 % 98 % 118 /min Kris Godfrey [facility] - [place] & [place] 4 09:43:56 Social History None recorded. Functional Status Question Answer Note LastModified by Organizat ion Details LastModified Time Do you use any illicit or recreational drugs? No [email or web address] Information not available 03/05/2024 What is your level of alcohol consumption? None [email or web address] Information not available 03/05/2024 Mental Status None recorded. Family History Nothing Reported Notes:Mother & Father,Siblin gs-Heart Disease Mother,Father,Brother- Heart Maternal & Paternal Grandparents- Medical History No medical history recorded. 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 [...] placement of stent for coronary artery disease 130539575 Z95.5 continue follow with cardiology Gastroesop hageal reflux disease without esophagitis 022121476 K21.9 long-actin g PPI anti-reflu x measure in the diet Health Concerns Section Related Observation LastModified by Organization Detai ls LastModified Time None Recorded Concern Status LastModified by Organization Details LastModified Time None Recorded Advance Directives Directive None Recorded Payers Insurance Date Sequence Insurance Name Policy Number Policy Mistry Covered Member ID Mistry Member ID Guarantor Name 04/22/2024 1 [employer] (MEDICARE REPLACEMENT/ ADVANTAGE - HMO) Norm Jordan [id number] Norm Joseph Notes Date Note Type Note Provider Name and Address Organization Details Recorded Time 03/05/2024 text/html This 69-year-old referred from Marlin atkins APRN from [facility] for chronic GERD intermittent dysphagia chest burning on omeprazole 20 they increase to b.i.d. he had a small amount of hematemesis month ago no melena or hematochezia. He had a colonoscopy 5 7 years ago in [place] said to be negative. He has multiple [...] diet. 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
[2024-09-13] MEDS: ALBUTEROL 0.083% 2.5 MG/3 ML NEB IH (13:22)
== END 2024-09-13 23:59 | disposition home or self-care (01) ==
LOC: RT 12:35
PROVIDERS: PCP Nurse Practitioner; Visit Provider Internal Medicine Pulmonary Disease
DX: J44.9 Chronic obstructive pulmonary disease, unspecified (principal)
CPT/HCPCS: 94010; 94618

== ENCOUNTER 2024-12-12 11:53 | Outpatient (CLI) | payer MEDICARE, SELFPAY ==
[2024-12-12 12:36] LABS: Chloride 93 mmol/L (98-107); Potassium 4.3 mmoL/L (3.5-5.1); Sodium 135 mmol/L (136-145)
[2024-12-12 12:39] LABS: Anion Gap 18.3 mEq/L (5-15); Blood Urea Nitrogen 36 mg/dl (9-20); Calcium 9.8 mg/dl (8.4-10.2); Carbon Dioxide 28 mmol/L (22.0-30.0); Creatinine,Serum 1.40 mg/dl (0.66-1.25); Estimated Glomerular Filt Rate 50 ml/min (>60); GFR (African American) 60 ML/MIN (>60); Glucose 327 mg/dl (74-100); Magnesium 1.8 mg/dl (1.6-2.3)
== END 2024-12-12 23:59 | disposition home or self-care (01) ==
LOC: LAB 11:53
PROVIDERS: PCP Nurse Practitioner; Visit Provider Nurse Practitioner Family
DX: I25.10 Atherosclerotic heart disease of native coronary artery without angina pectoris (principal); I10 Essential (primary) hypertension
CPT/HCPCS: 36415; 80048; 83735

== ENCOUNTER → 2025-01-08 20:30 | Outpatient (CLI) | payer MEDICARE, SELFPAY ==
--- OUTSIDE RECORDS SUMMARY | 2025-01-08 20:34 | XMS_ITS | Data Portability ---
Author Organization [facility] ADMIN Address [address] [place] [id number] Assessment Encounter Date Assessment Date Assessment LastModified [...] continue avoidance of triggering foods/liquids -f/u PRN Not available 02/08/2023 11:02:35 Plan of Treatment [...] Address Organization Details Recorded Time Laryngeal spasm 453626340 Active 2022 Karlos Nolan PA-C [address], [place], [address] , [facility] & [place] 3 10:50:04 Gastroesophag eal reflux disease without esophagitis 753686653 Active 2022 Karlos Nolan PA-C [address], [place], [address] , [facility] & [place] 3 10:50:11 Problem Notes None recorded. Medical Equipment None Reported. Allergies Allergen ID Allergen Name Allergen Category Reaction Reaction Severity Criticality Documentation Date Start Date Code Code System Note Provider Name and Address Organization Details Recorded Time 457338 codeine medicatio n Not available Not available Not available 02/08/2023 2670 RxNorm Jenise woods [place] - [facility] & [place] 3 10:11:59 Medications Name Sig Start Date [...] with needle 1 mL 31 gauge x 5/16 USE 1 SYRINGE SUBCUTANEOU SLY TWICE DAILY [...] Pulse oximetry Heart rate Heart rate Systolic And Diastolic Provider Name and Address Organization Details Last Updated DateTime 3 772910 g 37.7 kg/m2 177.8 cm 97.2 [degF] 91 % 91 % 75 /min 74 /min 153/90 mm[Hg] Jenise Akers [facility] & [place] 3 10:10:46 Social History None recorded. Functional Status None recorded. Mental Status None recorded. Family History Nothing Reported. Medical History No medical history recorded. Past Encounters Encounter ID Performer Location Encounter Start Date Encounter Closed Date Diagnosis/Indication Diagnosis SNOMED-CT Code Diagnosis ICD10 Code Diagnosis IMO Codes Diagnosis Note [id number] Karlos Nolan PA-C [facility] [address] [place] [address] 02/08/2023 09:52:00 02/08/2023 11:10:10 Laryngeal spasm 110594661 J38.5 Gastroesop hageal reflux disease without esophagitis 934421302 K21.9 Health Concerns Section Related Observation LastModified by Organization Detai ls LastModified Time None Recorded Concern Status LastModified by Organization Details LastModified Time None Recorded Advance Directives Directive None Recorded Payers Insurance Date Sequence Insurance Name Policy Number Policy Mistry Covered Member ID Mistry Member ID Guarantor Name 02/10/2023 1 [employer] (MEDICARE REPLACEMENT/ ADVANTAGE - HMO) Norm Jordan [id number] Norm Joseph Notes Date Note Type Note [...] pain, hematemesis, or melena. Karlos Nolan PA-C [address] [facility], [place], [address], [place] - [facility] - [place] & [place] 02/08/2023 11:02:46
== END ==
LOC: SL 20:32
PROVIDERS: Visit Provider Specialist
DX: G47.33 Obstructive sleep apnea (adult) (pediatric) (principal); I27.21 Secondary pulmonary arterial hypertension

== ENCOUNTER 2025-03-25 09:50 | Outpatient (CLI) | payer MEDICARE, SELFPAY ==
[2025-03-25 10:30] LABS: Hematocrit 54.0 % (42.0-52.0); Immature Granulocytes % 1.3 %; Mean Corpuscular HGB Conc 33.5 g/dL (31.8-35.4); Mean Corpuscular Hemoglobin 31.4 pg (27.0-31.2); Mean Corpuscular Volume 93.8 fl (80-94); Nucleated Red Blood Cells % 0 %; Platelet Count 257 K/mm3 (142-424); Red Blood Count 5.76 M/mm3 (4.60-6.20); Red Cell Distribution Width-SD 47.2 fL; White Blood Count 8.9 K/mm3 (4.8-10.8)
[2025-03-25 10:49] LABS: Albumin Level 4.5 g/dl (3.5-5.0)
[2025-03-25 10:50] LABS: Chloride 99 mmol/L (98-107); Potassium 4.7 mmoL/L (3.5-5.1); Sodium 137 mmol/L (136-145)
[2025-03-25 10:52] LABS: Bilirubin,Unconjugated 0.8 mg/dL (0.0-1.1); Blood Urea Nitrogen 24 mg/dl (9-20); Creatinine,Serum 1.20 mg/dl (0.66-1.25); Estimated Glomerular Filt Rate 60 ml/min (>60); GFR (African American) 72 ML/MIN (>60)
[2025-03-25 10:53] LABS: Alanine Aminotransferase 35 U/L (12-78); Alkaline Phosphatase 61 U/L (38-126); Anion Gap 14.7 mEq/L (5-15); Aspartate Amino Transferase 37 U/L (17-59); Bilirubin,Direct 0.1 mg/dl (0.0-0.4); Bilirubin,Indirect 0.8 mg/dL (0.0-0.9); Bilirubin,Total 0.9 mg/dl (0.2-1.3); Calcium 10.1 mg/dl (8.4-10.2); Carbon Dioxide 28 mmol/L (22.0-30.0); Cholesterol 102 mg/dl (140-200); HDL Cholesterol 38 mg/dl (40-60); Magnesium 2.2 mg/dl (1.6-2.3); Total Protein,Serum 7.5 g/dl (6.3-8.2); Triglycerides 173 mg/dl (30-150)
[2025-03-25 11:01] LABS: Hemoglobin 18.1 g/dL (14.1-18.0)
[2025-03-25 11:03] LABS: Glucose 401 mg/dl (74-100)
[2025-03-25 11:12] LABS: Free T4 (Free Thyroxine) 1.24 ng/dl (0.78-2.19)
[2025-03-25 11:23] LABS: Thyroid Stimulating Hormone 3.05 uIU/mL (0.465-4.68)
== END 2025-03-25 23:59 | disposition home or self-care (01) ==
LOC: LAB 09:51
PROVIDERS: PCP Nurse Practitioner; Visit Provider Nurse Practitioner
DX: E83.42 Hypomagnesemia (principal); I25.10 Atherosclerotic heart disease of native coronary artery without angina pectoris; I10 Essential (primary) hypertension; E78.2 Mixed hyperlipidemia
CPT/HCPCS: 36415; 80048; 80061; 80076; 83735; 84439; 84443; 85025